=== PATIENT | female | born 1945 | race Caucasian/White ===

== ENCOUNTER 2020-02-28 14:25 | Outpatient (CLI) | payer MEDICARE, MEDICAID, SELFPAY ==
--- NOTE | 2020-02-28 14:27 | CT_ITS ---
WS: [id number] LDCT LUNG CANCER SCREENING HISTORY: HX OF TOBACCO USE TECHNIQUE: Axial imaging performed from the apices to 1 cm below the costophrenic angles. Coronal and sagittal reformats are submitted with axial MIP series. All CT scans at [facility] use at least one of these dose optimization techniques: automated exposure control; mA and/or kV adjustment per patient size (includes targeted exams where dose is matched to clinical indication); or iterativ e reconstruction. DLP: 54.58 mGy.cm DIvol: 1.58 mGy COMPARISON: None available. Diagnostic quality: Satisfactory Lung Nodules: No pulmonary nodules or endobronchial lesions. Lungs: Mild hyperexpansion from emphysema. Bilateral areas of scarring or subsegmental atelectasis at the lung bases. Small hernias posteriorly at each lung base. Heart: Normal size heart. There is extensive calcification in the [place] coronary arteries. Other findings: Heavy calcification within the thoracic aorta. Calcification extends into the proxima l great vessels. Precarinal lymph node measures 10 mm. Small hiatal hernia. Mild anterior wedging of T11. Age indeterminate compression fracture. Diffuse osteopenia. CT/CT lung screening [id number] IMPRESSION: LUNG-RADS: 1S-Negative with Significant Findings FOLLOW UP: 12 Month: Continue annual screening with LDCT OTHER FINDINGS (S MODIFIER): Severe atherosclerotic disease within the [place] c oronary arteries and aorta.
== END 2020-02-28 14:26 | disposition home or self-care (01) ==
LOC: CT 14:27
PROVIDERS: PCP Family Medicine; Visit Provider Family Medicine
DX: Z12.2 Encounter for screening for malignant neoplasm of respiratory organs (principal); Z87.891 Personal history of nicotine dependence
CPT/HCPCS: 71271

== ENCOUNTER 2020-08-25 14:51 | Outpatient (CLI) | payer MEDICARE, MEDICAID, SELFPAY ==
--- NOTE | 2020-08-25 14:56 | MM_ITS ---
WS: [id number] BILATERAL SCREENING DIGITAL MAMMOGRAM WITH CAD HISTORY: SCREENING COMPARISON: None available. Bilateral CC and MLO views submitted. Computer aided detection analyzed. Breast composition: There are scattered areas of fibroglandular density. No suspicious masses, microc alcifications or architectural distortion. Benign vascular calcifications and round calcifications. MM/[place] [id number] IMPRESSION: BI-RADS: 2-Benign FOLLOW UP: 1 Year Follow-up
== END 2020-08-25 14:52 | disposition home or self-care (01) ==
LOC: RADSHAW 14:55
PROVIDERS: PCP Family Medicine; Visit Provider Family Medicine
DX: Z12.31 Encounter for screening mammogram for malignant neoplasm of breast (principal)
CPT/HCPCS: 77067

== ENCOUNTER → 2020-12-16 08:45 | Outpatient (BNVA) | payer MEDICARE, MEDICAID, SELFPAY | PROVIDERS: PCP Family Medicine; Visit Provider Internal Medicine Rheumatology | DX: M05.79 Rheumatoid arthritis with rheumatoid factor of multiple sites without organ or systems involvement (principal); Z79.899 Other long term (current) drug therapy; Z79.52 Long term (current) use of systemic steroids; Z89.612 Acquired absence of left leg above knee; Z71.85 Encounter for immunization safety counseling | CPT/HCPCS: 99204 ==

== ENCOUNTER 2021-01-28 14:55 | Outpatient (CLI) | payer MEDICARE, MEDICAID, SELFPAY ==
--- NOTE | 2021-01-28 15:07 | XR_ITS ---
WS: [id number] SCREENING DEXA SCAN [employer] CLINICAL INFORMATION: POST MENOPAUSAL COMPARISON: 2013 FINDINGS: Lumbar scoliosis. The L1-L4 bone mineral density measures 1.037 g/cm2. This corresponds to a T score score of -1.2 and Z score of 1.0. Left femoral neck bone mineral density measures 0.240 g/cm2. This corresponds to a T score of -6.1 an d Z score of -4.1. Right femoral neck bone mineral density measures 0.628 g/cm2. This corresponds to a T score -3.0of an d Z score of -1.1. Mean femoral neck bone mineral density measures 0.434 g/cm2. This corresponds to a T score of -4.6 an d Z score of -2.6. XR/XR DEXA axial skeleton* [id number] IMPRESSION: Osteoporosis. Bone mineral density spuriously elevated in the lumbar spine due to endplate sc lerosis. Patient's FRAX calculated 10 year probability for major osteoporotic fracture i s 84.2 % and osteoporotic hip fracture is 80.1%.
== END 2021-01-28 14:56 | disposition home or self-care (01) ==
PROVIDERS: PCP Family Medicine; Visit Provider Family Medicine
DX: Z78.0 Asymptomatic menopausal state (principal); M81.0 Age-related osteoporosis without current pathological fracture
CPT/HCPCS: 77080

== ENCOUNTER → 2021-04-08 10:27 | Outpatient (BNVA) | payer MEDICARE, MEDICAID, SELFPAY | PROVIDERS: PCP Family Medicine; Visit Provider Internal Medicine Rheumatology | DX: M05.79 Rheumatoid arthritis with rheumatoid factor of multiple sites without organ or systems involvement (principal); Z79.899 Other long term (current) drug therapy; Z79.52 Long term (current) use of systemic steroids; Z89.612 Acquired absence of left leg above knee; Z71.85 Encounter for immunization safety counseling | CPT/HCPCS: 99204; 99214 ==

== ENCOUNTER 2021-04-15 12:02 | Outpatient (CLI) | payer MEDICARE, MEDICAID, SELFPAY ==
--- NOTE | 2021-04-15 13:08 | CT_ITS ---
WS: [id number] LDCT LUNG CANCER SCREENING TECHNIQUE: Noncontrast CT of the chest with coronal and sagittal reformatted images. CLINICAL INFORMATION: HX OF TOBACCO USE COMPARISON: February 28, 2020 DLP: 84.37 mGy.cm DIvol: Mean CTDIvol: 1.60 (mGy) All CT scans at [facility] use at least one of these dose optimization techniques: automat ed exposure control; mA and/or kV adjustment per patient size (includes targeted exams where dose is matched to clinical indication); or iterative reconstruction. FINDINGS: Moderate to advanced chronic emphysematous changes. No acute pulmonary infiltrates. No focal pneumoni a or pleural fluid. Thoracic aortic calcification. Coronary calcification. Stable prominent anterior mediastinal lymph node measuring 10 mm. No suspicious pulmonary parenchymal abnormality. Noncontrast spleen is normal. Small esophageal hiatal hernia. Adrenal glands are normal. Thoracolumba r scoliosis. Thoracic kyphosis. Chronic compression of a lower thoracic vertebral body T11. Small margi aliyah fat-containing Bochdalek hernia posteriorly CT/CT lung screening [id number] IMPRESSION: LUNG-RADS: 1S-Negative with Significant Findings FOLLOW UP: 12 Month: Continue annual screening with LDCT OTHER FINDINGS (S MODIFIER): Advanced atherosclerotic disease within the thorac ic aorta and coronary arteries
== END 2021-04-15 12:03 | disposition home or self-care (01) ==
LOC: RAD 12:04
PROVIDERS: PCP Family Medicine; Visit Provider Family Medicine
DX: Z12.2 Encounter for screening for malignant neoplasm of respiratory organs (principal); Z87.891 Personal history of nicotine dependence; K44.9 Diaphragmatic hernia without obstruction or gangrene
CPT/HCPCS: 71271

== ENCOUNTER 2021-09-14 10:57 | Outpatient (CLI) | payer MEDICARE, MEDICAID, SELFPAY ==
[2021-09-14 12:07] LABS: Albumin Level 3.9 g/dL (3.5-5.2); Calcium 9.6 mg/dL (8.5-10.5)
[2021-09-14 12:48] VITALS: BP 130/68; PULSE 79; RESP 18; TEMP 36.2; O2SAT 93
[2021-09-14] MEDS: denosumab 60 mg SDV SUBCUT (12:52)
[2021-09-14 13:04] VITALS: BP 122/65; PULSE 76; RESP 18; TEMP 36.2; O2SAT 95
== END 2021-09-14 10:58 | disposition home or self-care (01) ==
PROVIDERS: PCP Family Medicine; Referring Provider Family Medicine; Visit Provider Family Medicine
DX: M81.0 Age-related osteoporosis without current pathological fracture (principal)
CPT/HCPCS: 36415; 82040; 82310; 96372; J0897

== ENCOUNTER → 2021-10-06 10:49 | Outpatient (BNVA) | payer MEDICARE, MEDICAID, SELFPAY | PROVIDERS: PCP Family Medicine; Visit Provider Internal Medicine Rheumatology | DX: M05.79 Rheumatoid arthritis with rheumatoid factor of multiple sites without organ or systems involvement (principal); Z79.899 Other long term (current) drug therapy; Z71.85 Encounter for immunization safety counseling; Z89.612 Acquired absence of left leg above knee; Z79.52 Long term (current) use of systemic steroids | CPT/HCPCS: 36415; 80076; 82565; 85025; 86140; 99214 ==

== ENCOUNTER → 2022-01-04 10:23 | Outpatient (BNVA) | payer MEDICARE, MEDICAID, SELFPAY | PROVIDERS: PCP Family Medicine; Visit Provider Internal Medicine Rheumatology | DX: M05.79 Rheumatoid arthritis with rheumatoid factor of multiple sites without organ or systems involvement (principal); Z79.899 Other long term (current) drug therapy; Z71.85 Encounter for immunization safety counseling; Z89.612 Acquired absence of left leg above knee; Z79.52 Long term (current) use of systemic steroids | CPT/HCPCS: 36415; 80076; 82565; 85025; 86140; 99214 ==

== ENCOUNTER 2022-08-11 11:17 | Outpatient (CLI) | payer MEDICARE, MEDICAID, SELFPAY ==
[2022-08-11 11:55] LABS: Basophils % 0.3 %; Eosinophils # 0.2 10^3/uL (0.0-0.8); Eosinophils % 3.4 %; Hematocrit 34.2 % (37.0-47.0); Hemoglobin 11.4 g/dL (11.5-15.3); Lymphocytes # 1.1 10^3/uL (0.8-4.8); Lymphocytes % 15.5 %; Mean Corpuscular HGB Conc 33.3 g/dL (30.0-36.0); Mean Corpuscular Hemoglobin 28.7 pg (28.0-34.0); Mean Corpuscular Volume 86.1 fl (81-99); Mean Platelet Volume 9.7 fL (7.4-10.4); Monocytes # 0.7 10^3/uL (0.2-0.9); Monocytes % 10.3 %; Neutrophils # 4.97 10^3/uL (1.8-7.7); Neutrophils % 70.2 %; Nucleated Red Blood Cells % 0 %; Platelet Count 297 10^3/cmm (130-400); Red Blood Count 3.97 10^6/uL (4.1-5.3); Red Cell Distribution Width 14.7 % (12.1-15.1); White Blood Count 7.1 10^3/uL (4.0-10.0)
[2022-08-11 12:19] LABS: Alanine Aminotransferase 13 U/L (0-33); Albumin Level 3.9 g/dL (3.5-5.2); Alkaline Phosphatase 62 U/L (35-105); Aspartate Amino Transferase 19 U/L (0-32); Globulin 2.8 g/dL (1.3-4.6); Total Bilirubin 0.2 mg/dL (0.15-1.2); Total Protein 6.7 g/dL (6.6-8.7)
== END 2022-08-11 11:18 | disposition home or self-care (01) ==
PROVIDERS: Internal Medicine Rheumatology; PCP Family Medicine; Visit Provider Internal Medicine
DX: M05.79 Rheumatoid arthritis with rheumatoid factor of multiple sites without organ or systems involvement (principal); Z79.899 Other long term (current) drug therapy
CPT/HCPCS: 36415; 80076; 82565; 85025

== ENCOUNTER → 2022-09-20 14:08 | Outpatient (BNVA) | payer MEDICARE, MEDICAID, SELFPAY | PROVIDERS: PCP Family Medicine; Visit Provider Internal Medicine Rheumatology | DX: M05.79 Rheumatoid arthritis with rheumatoid factor of multiple sites without organ or systems involvement (principal); Z79.899 Other long term (current) drug therapy; Z71.85 Encounter for immunization safety counseling; Z89.612 Acquired absence of left leg above knee; Z79.52 Long term (current) use of systemic steroids | CPT/HCPCS: 99214 ==

== ENCOUNTER 2022-11-12 09:43 | Oncology outpatient (recurring) (ONCR) | payer MEDICARE, MEDICAID, SELFPAY ==
[2022-11-12] MEDS: denosumab 60 mg SDV SUBCUT (09:56)
[2022-11-12 09:59] VITALS: BP 146/69; PULSE 77; RESP 17; TEMP 36.3; O2SAT 93
== END 2022-12-07 23:59 | disposition home or self-care (01) ==
LOC: ONCMED 09:43
PROVIDERS: PCP Family Medicine; Visit Provider Family Medicine
DX: M81.0 Age-related osteoporosis without current pathological fracture (principal)
CPT/HCPCS: 96372; J0897

== ENCOUNTER 2022-12-29 12:20 | Emergency (ER) | payer MEDICARE, MEDICAID, SELFPAY ==
[2022-12-29 12:38] VITALS: BP 157/65; PULSE 103; RESP 18; TEMP 36.8; O2SAT 94
[2022-12-29 12:43] VITALS: RESP 18; O2SAT 94
--- NOTE | 2022-12-29 12:45 | XRR_ITS ---
PROCEDURE INFORMATION: Exam: XR Chest Exam date and time: 12/29/2022 12:48 PM Age: 77 years old Clinical indication: Shortness of breath; Additional info: SOB TECHNIQUE: Imaging protocol: Radiologic exam of the chest. Views: 1 view. COMPARISON: CT lung screening [id number] 04/15/2021 1:10 PM FINDINGS: Lungs: Mild and diffuse chronic interstitial prominence. Hypoventilatory changes in each lower lobe, left greater than right. No infiltrate or effusion. Pleural spaces: Unremarkable. No pleural effusion. No pneumothorax. Heart/Mediastinum: Unremarkable. No cardiomegaly. Bones/joints: Mild right thoracic curvature. XR/XR chest 1V portable [id number] IMPRESSION: 1. No acute findings. 2. Mild hypoventilatory changes at each lung base.
--- NOTE | 2022-12-29 12:45 | ECG_ITS ---
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 Measurements Intervals [place] Rate: 99 P: 60 CO: 111 QRS: 58 QRSD: 81 T: 65 QT: 354 QTc: 454 Interpretive Statements SINUS RHYTHM WITH SHORT CO INTERVAL WITH INTERMITTENT SUPRAVENTRICULAR PREMATURE COMPLEXES NONSPECIFIC ST & T-WAVE ABNORMALITY ABNORMAL RHYTHM ECG No previous ECG available for comparison Electronically Signed On 12-30-2022 13:18:14 [employer]INO CAGE MANAGER by Dudley Marcial M.D. [id number]
[2022-12-29 13:02] LABS: Basophils % 0.3 %; Eosinophils # 0.2 10^3/uL (0.0-0.8); Eosinophils % 2.6 %; Hematocrit 29.3 % (36-47); Lymphocytes # 0.4 10^3/uL (0.8-4.8); Lymphocytes % 5.7 %; Mean Corpuscular HGB Conc 32.8 g/dL (30-55); Mean Corpuscular Hemoglobin 27.3 pg (27-33); Mean Corpuscular Volume 83.2 fl (85-98); Mean Platelet Volume 8.9 fL (7.4-10.4); Monocytes # 0.8 10^3/uL (0.2-0.9); Monocytes % 10.6 %; Neutrophils # 6.07 10^3/uL (1.8-7.7); Neutrophils % 80.4 %; Nucleated Red Blood Cells % 0 %; Platelet Count 355 10^3/cmm (157-399); Red Blood Count 3.52 10^6/uL (3.85-5.65); Red Cell Distribution Width 15.4 % (12.1-15.1); White Blood Count 7.55 10^3/uL (3.29-11.43)
--- NOTE | 2022-12-29 13:10 | ED_ITS ---
HPI - SOB/Dyspnea General: Chief Complaint: Shortness of Breath/Dyspnea Stated Complaint: low O2 Time Seen by Provider: 12/29/22 12:25 Source: patient Mode of arrival: ambulatory Limitations: no limitations History of Present Illness: HPI Narrative: 77-year-old female with a history of COPD states she has been having some increased shortness of breath over the last 3 days. She has been using her inhaler she has had a slight cough she denies any fever denies any pain she de nies any worsening improving factors. Associated symptoms: Deny abdominal pain, chest pain, fever(s), nausea or vomiting Review of Systems Const: Denies: fever(s), chills, body aches or change in appetite Eyes: Denies: blurry vision or eye discomfort ENMT: Denies: throat pain or dental pain Card: Denies: chest pain Resp: Reports: dyspnea GI: Denies: abdominal pain, nausea, vomiting or diarrhea : Denies: dysuria Musc: Denies: neck pain or back pain Skin/Breast: Denies: rash Neuro: Denies: headache(s) PFSH ED PFSH: Medical History Anxiety COPD (chronic obstructive pulmonary disease) GERD (gastroesophageal reflux disease) High risk medication use History of hypercholesterolemia Hypertension Immunization counseling Joint pain 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 Surgical History History of total knee arthroplasty left Family History Other CAD (coronary artery disease) Diabetes Hyperlipidemia Hypertension Lung disease Stroke Social History Smoking and tobacco/nicotine status: former use of tobacco/nicotine Alcohol intake: never Physical Exam Const: COMMON NORMALS: no acute distress, patient oriented x3 and healthy appearing HENMT: COMMON NORMALS: normocephalic and atraumatic HEAD & SCALP: normocephalic and atraumatic Eye: COMMON NORMALS: Equal, round and reactive pupils present and EOMs intact bilaterally PUPIL: Yes Equal, round and reactive pupils present Neck/C-Spine: COMMON NORMALS: full ROM and supple Chest: COMMONS NORMALS: normal inspection of the chest and normal palpation of entire chest wall Resp: COMMON NORMALS: normal respiratory effort, No retractions, No use of accessory muscles and clear to auscultation bilaterally AUSCULTATION: clear to auscultation bilaterally Cardio: COMMON NORMALS: regular rate, regular rhythm and No murmurs present (Cardio) RATE: regular rate RHYTHM: regular rhythm GI: COMMON NORMALS: Normal to inspection, nondistended, normoactive bowel sounds present, Soft to palpation, non-tender and no masses PALPATION: Yes Soft to palpation Extremity: COMMON NORMALS: normal to inspection and full ROM Neuro: COMMON NORMALS: patient oriented x3, moves all extremities and no focal motor deficits Psych: COMMON NORMALS: mental status grossly normal, Normal thought process present and cooperative THOUGHT PROCESS: Normal thought process present Skin: COMMON NORMALS: no rashes or lesions noted and no wounds GENERAL SKIN EXAM: no rashes or lesions noted Course Vital Signs: Vital signs: Vital Signs Temperature 98.2 F 12/29/22 12:38 Pulse Rate 103 H 12/29/22 12:38 Respiratory Rate 18 12/29/22 12:43 Blood Pressure 157/65 12/29/22 12:38 Pulse Oximetry 94 12/29/22 12:43 Oxygen Delivery Me thod Room Air 12/29/22 12:43 MDM - SOB/Dyspnea Medical Decision Making Patient presents here with shortness of breath likely COPD exacerbation she has been well-appearing here in no distress x-ray shows no pneumonia she has no si gns of pulmonary embolism we will start her on a 5-day course of steroids she is to follow-up with her PCP and return if worsening she understands agrees to plan. Medical Records I reviewed the patient's medical records. Lab Data I reviewed the patient's lab results. 12/29/22 12:58 12/29/22 12:58 Labs/Radiology: Radiology Impressions Chest X-Ray 12/29/22 12:45 IMPRESSION: 1. No acute findings. 2. Mild hypoventilatory changes at each lung base. Laboratory Results WBC 7.55 10^3/uL (3.29-11.43) 12/29/22 12:58 RBC 3.52 10^6/uL (3.85-5.65) L 12/29/22 12:58 Hgb 9.60 g/dL (11.27-16.99) L 12/29/22 12:58 Hct 29.3 % (36-47) L 12/29/22 12:58 MCV 83.2 fl (85-98) L 12/29/22 12:58 MCH 27.3 pg (27-33) 12/29/22 12:58 MCHC 32.8 g/dL (30-55) 12/29/22 12:58 RDW 15.4 % (12.1-15.1) H 12/29/22 12:58 Plt Count 355 10^3/cmm (157-399) 12/29/22 12:58 MPV 8.9 fL (7.4-10.4) 12/29/22 12:58 Neut % (Auto) 80.4 % 12/29/22 12:58 Lymph % (Auto) 5.7 % 12/29/22 12:58 [place] % (Auto) 10.6 % 12/29/22 12:58 Eos % (Auto) 2.6 % 12/29/22 12:58 Baso % (Auto) 0.3 % 12/29/22 12:58 Neut # (Auto) 6.07 10^3/uL (1.8-7.7) 12/29/22 12:58 Lymph # (Auto) 0.4 10^3/uL (0.8-4.8) L 12/29/22 12:58 [place] # (Auto) 0.8 10^3/uL (0.2-0.9) 12/29/22 12:58 Eos # (Auto) 0.2 10^3/uL (0.0-0.8) 12/29/22 12:58 Baso # (Auto) 0.0 10^3/uL (0.0-0.1) 12/29/22 12:58 Nucleated RBC % (auto) 0 % 12/29/22 12:58 Nucleated RBCs # 0.0 /100WBC 12/29/22 12:58 Sodium 128 mmol/L (136-145) L 12/29/22 12:58 Potassium 4.2 mmol/L (3.5-5.1) 12/29/22 12:58 Chloride 95 mmol/L (98-107) L 12/29/22 12:58 Carbon Dioxide 20 mmol/L (22-29) L 12/29/22 12:58 Anion Gap 17.2 (5-19) 12/29/22 12:58 BUN 7 mg/dL (8-23) L 12/29/22 12:58 Creatinine 0.6 mg/dL (0.5-0.9) 12/29/22 12:58 GFR Calculation Not Reportable 12/29/22 12:58 Glucose 107 mg/dL (65-115) 12/29/22 12:58 Calculated Osmolality 264 mOsm/kg (285-295) L 12/29/22 12:58 Calcium 8.5 mg/dL (8.5-10.5) 12/29/22 12:58 Total Bilirubin 0.2 mg/dL (0.15-1.2) 12/29/22 12:58 AST 19 U/L (0-32) 12/29/22 12:58 ALT 17 U/L (0-33) 12/29/22 12:58 Alkaline Phosphatase 83 U/L (35-105) 12/29/22 12:58 NT-Pro-B Natriuret Pep 3073 pg/mL (0-450) H 12/29/22 12:58 Total Protein 7.0 g/dL (6.6-8.7) 12/29/22 12:58 Albumin 3.3 g/dL (3.5-5.2) L 12/29/22 12:58 Globulin 3.7 g/dL (1.3-4.6) 12/29/22 12:58 No radiology studies performed this visit EKG Data EKG 1: I personally reviewed and interpreted this EKG as follows: EKG Interpretation Date: 12/29/22 EKG interpretation time: 13:03 Interpretation: nsr hr [address] or t wave abnormalities qrs 81 qtc 410 Discharge Plan Discharge Patient Disposition: Home Clinical Impression: Acute exacerbation of chronic obstructive airways disease Condition: Stable Prescriptions: New prednisone 50 mg tablet 50 mg PO DAILY Qty: 5 0RF No Action tramadol 50 mg tablet 50 mg PO DAILY isosorbide mononitrate 30 mg tablet extended release 24 hr 30 mg PO DAILY pramipexole 0.125 mg tablet 0.125 mg PO DAILY lorazepam 0.5 mg tablet 0.5 mg PO BID PRN albuterol sulfate [Ventolin HFA] 90 mcg/actuation HFA aerosol inhaler 2 puff inhalation Q6H PRN cholecalciferol (vitamin D3) PO acetaminophen [Tylenol Extra Strength] 500 mg tablet 500 mg PO Q6H PRN naloxone 0.4 mg/mL solution 0.4 mg IM Q2M PRN Rx Instructions: NTExceed 10 mg total dose/episode aspirin 81 mg tablet,delayed release (DR/EC) 81 mg PO DAILY montelukast 10 mg tablet 10 mg PO DAILY baclofen 10 mg tablet 10 mg PO DAILY amlodipine 10 mg tablet 10 mg PO DAILY lisinopril 40 mg tablet 40 mg PO DAILY Qty: 90 0RF rosuvastatin 20 mg tablet 20 mg PO DAILY Qty: 90 0RF albuterol sulfate 2.5 mg/0.5 mL solution for nebulization 2.5 mg inhalation ONCE Qty: 1 0RF esomeprazole magnesium 20 mg capsule,delayed release(DR/EC) See Rx Instructions .ROUTE .COMPLEX Qty: 90 3RF Dose Instruction: TAKE 1 CAPSULE BY MOUTH EVERY DAY Rx Instructions: TAKE 1 CAPSULE BY MOUTH EVERY DAY duloxetine 60 mg capsule,delayed release(DR/EC) See Rx Instructions .ROUTE .COMPLEX Qty: 30 0RF Dose Instruction: TAKE 1 CAPSULE BY MOUTH DAILY Rx Instructions: TAKE 1 CAPSULE BY MOUTH DAILY, must have appt for further refills Trelegy Ellipta 100-62.5-25 mcg blister with device See Rx Instructions .ROUTE .COMPLEX Qty: 180 0RF Dose Instruction: TAKE 1 PUFF BY MOUTH FOR 90 DAYS Rx Instructions: TAKE 1 PUFF BY MOUTH FOR 90 DAYS leflunomide 20 mg tablet 20 mg PO DAILY Qty: 90 0RF prednisone 10 mg tablet See Rx Instructions .ROUTE .COMPLEX Qty: 30 0RF Dose Instruction: TAKE 1 TABLET BY MOUTH ONCE DAILY FOR 3-7 DAYS NEEDED FOR JOINT PAIN FLARE Rx Instructions: TAKE 1 TABLET BY MOUTH ONCE DAILY FOR 3-7 DAYS NEEDED FOR JOINT PAIN FLARE Discharge Orders: Discharge ED (Routine); Ordered 12/29/22 Ordered By: Jolene Poole Referrals: Matt Elias MD [Primary Care Provider] - 1-3 days Discharge Diet: Advance as tolerated Discharge Activity: Resume usual activity Patient Instructions: COPD (Chronic Obstructive Pulmonary Disease) (ED) Coding Level of Care Code 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
[2022-12-29] MEDS: methylPREDNISolone sod succ 125 mg/2 mL INJ IV (13:13)
[2022-12-29 13:34] LABS: Alanine Aminotransferase 17 U/L (0-33); Albumin Level 3.3 g/dL (3.5-5.2); Alkaline Phosphatase 83 U/L (35-105); Anion Gap 17.2 (5-19); Aspartate Amino Transferase 19 U/L (0-32); Blood Urea Nitrogen 7 mg/dL (8-23); Calcium 8.5 mg/dL (8.5-10.5); Carbon Dioxide 20 mmol/L (22-29); Chloride 95 mmol/L (98-107); Globulin 3.7 g/dL (1.3-4.6); Glucose 107 mg/dL (65-115); NT Pro B Type Natriuretic Pept 3073 pg/mL (0-450); Osmolality Calculated 264 mOsm/kg (285-295); Potassium 4.2 mmol/L (3.5-5.1); Sodium 128 mmol/L (136-145); Total Bilirubin 0.2 mg/dL (0.15-1.2)
== END 2022-12-29 13:49 | disposition home or self-care (01) ==
PROVIDERS: Emergency Provider Emergency Medicine; PCP Family Medicine
DX: J44.1 Chronic obstructive pulmonary disease with (acute) exacerbation (principal); Z79.82 Long term (current) use of aspirin; Z87.891 Personal history of nicotine dependence; I10 Essential (primary) hypertension; Z89.612 Acquired absence of left leg above knee
CPT/HCPCS: 36415; 71045; 80053; 83880; 85025; 93005; 93010; 96374; 99285; J2930

== ENCOUNTER → 2023-02-09 10:14 | Outpatient (BNVA) | payer OTHER, MEDICAID, SELFPAY | PROVIDERS: PCP Family Medicine; Visit Provider Internal Medicine Rheumatology | DX: Z79.899 Other long term (current) drug therapy (principal); M05.79 Rheumatoid arthritis with rheumatoid factor of multiple sites without organ or systems involvement; M71.331 Other bursal cyst, right wrist; Z71.85 Encounter for immunization safety counseling; Z89.612 Acquired absence of left leg above knee | CPT/HCPCS: 36415; 80076; 82565; 85025; 86140; 99214 ==

== ENCOUNTER 2023-06-24 13:07 | Outpatient (CLI) | payer OTHER, MEDICAID, SELFPAY ==
--- NOTE | 2023-06-24 13:30 | US_ITS ---
WS: [id number] INDICATION: Bursal cyst. TECHNIQUE: Ultrasound soft tissue wrist. FINDINGS: Ultrasound soft tissue RIGHT wrist in the area of concern. Small lobulated cystic lesions w ith internal debris on the radial and ulnar side of the wrist most compatible with small ganglion cys t. Radial side cystic lesion measures 0.9 x 0.5 cm and ulna lesion measures 1.0 x 1.3 cm. Both cystic lesions demonstrate a small sinus tract extending to the underlying bony wrist or joint. US/US soft tissue/extremity [id number] IMPRESSION: Small lobulated cystic lesions with internal debris along the ulna and radial surfaces of the wrist most compatible with lobulated ganglion cysts described above.
== END 2023-06-24 13:08 | disposition home or self-care (01) ==
LOC: RAD 13:07
PROVIDERS: PCP Family Medicine; Visit Provider Internal Medicine Rheumatology
DX: M71.331 Other bursal cyst, right wrist (principal); M79.89 Other specified soft tissue disorders
CPT/HCPCS: 76882

== ENCOUNTER → 2023-08-09 13:18 | Outpatient (BNVA) | payer OTHER, MEDICAID, SELFPAY | PROVIDERS: PCP Family Medicine; Visit Provider Internal Medicine Rheumatology | DX: M05.79 Rheumatoid arthritis with rheumatoid factor of multiple sites without organ or systems involvement (principal); Z79.899 Other long term (current) drug therapy; Z71.85 Encounter for immunization safety counseling; Z89.612 Acquired absence of left leg above knee; Z87.891 Personal history of nicotine dependence | CPT/HCPCS: 36415; 80076; 82565; 85025; 85651; 86140; 99214 ==

== ENCOUNTER 2023-11-02 14:46 | Oncology outpatient (recurring) (ONCR) | payer OTHER, MEDICAID, SELFPAY ==
[2023-11-02] MEDS: sodium chloride 0.9% 250 ML 25 ML IV (15:38)
[2023-11-02] MEDS: ferric carboxy (PYXIS) 750 MG in sodium chloride 0.9% (100 ml) 100 ML 345 MG IV (15:39)
[2023-11-02 15:40] VITALS: BP 150/70; PULSE 69; RESP 18; TEMP 36.1
[2023-11-02 16:04] VITALS: BP 128/74; PULSE 74; RESP 18; TEMP 36.1; O2SAT 98
== END 2023-11-07 23:59 | disposition home or self-care (01) ==
LOC: ONCMED 14:46
PROVIDERS: PCP Family Medicine; Visit Provider Family Medicine
DX: Z79.899 Other long term (current) drug therapy (principal); D50.9 Iron deficiency anemia, unspecified
CPT/HCPCS: 96365; J1439; J7050

== ENCOUNTER 2023-11-09 14:44 | Oncology outpatient (recurring) (ONCR) | payer OTHER, MEDICAID, SELFPAY ==
[2023-11-09 15:19] VITALS: BP 168/85; PULSE 67; RESP 16; TEMP 37.1; O2SAT 96
[2023-11-09] MEDS: ferric carboxy (PYXIS) 750 MG in sodium chloride 0.9% (100 ml) 100 ML 345 MG IV (15:30)
[2023-11-09] MEDS: sodium chloride 0.9% 250 ML 325 ML IV (15:30)
[2023-11-09 16:02] VITALS: BP 172/70; PULSE 63; TEMP 36.1; O2SAT 95
== END 2023-12-08 23:59 | disposition home or self-care (01) ==
PROVIDERS: PCP Family Medicine; Visit Provider Family Medicine
DX: Z79.899 Other long term (current) drug therapy (principal); D50.9 Iron deficiency anemia, unspecified
CPT/HCPCS: 96365; J1439; J7050

== ENCOUNTER 2024-12-09 14:05 | Inpatient (IN) | payer MEDICARE, MEDICAID, SELFPAY ==
[2024-12-09] VITALS (25 sets, daily range): BP systolic 111–137; BP diastolic 52–81; PULSE 77–101; RESP 17–91; TEMP 36.7–36.8; O2SAT 86–95; BMI 19.3
--- NOTE | 2024-12-09 14:07 | XRR_ITS ---
PROCEDURE INFORMATION: Exam: XR Chest Exam date and time: 12/09/2024 2:37 PM Age: 78 years old Clinical indication: Shortness of breath; Additional info: SOB TECHNIQUE: Imaging protocol: Radiologic exam of the chest. Views: 1 view. COMPARISON: CR XR chest 1V portable [id number] 12/29/2022 12:48 PM FINDINGS: Lungs: Lungs are hyperexpanded. Radiolucency in the upper lung zones suggests bullous disease. Mild increased density is present in the left retrocardiac region and lateral right lung base. Mid and upper lungs are clear. Pleural spaces: Very small amount of pleural fluid may be present bilaterally. No pneumothorax. Heart/Mediastinum: Unremarkable. No cardiomegaly. Bones/joints: Unremarkable. XR/XR chest 1V portable [id number] IMPRESSION: 1. Mild increased density is present in the left retrocardiac region and lateral right lung base. Appearance is concerning for mild bibasilar pneumonia. 2. Radiographic findings suggesting COPD.
--- OUTSIDE RECORDS SUMMARY | 2024-12-09 14:09 | XMS_ITS | Encounter Summary ---
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 Gender Identity Not on file Sexual Orientation Not on file documented as of this encounter Plan of Treatment Not on file documented as of this encounter Procedures Procedure Name Priority Date/Time Associated Diagnosis Comments LIPID PANEL Routine 08/22/2006 8:44 AM CDT documented in this encounter Results * (ABNORMAL) LIPID PANEL (08/22/2006 8:44 AM CDT) CHOLESTEROL 256(H) 75 - 200 mg/dL INTERFACE SYSTEM HDL 45 40 - 60 mg/dL INTERFACE SYSTEM TRIGLYCERIDE 165 0 - 200 mg/dL INTERFACE SYSTEM GLUCOSE 93 70 - 110 mg/dL INTERFACE SYSTEM CALCULATED LDL CHOLESTEROL 178(H) 0 - 130 mg/dL INTERFACE SYSTEM CALCULATED TOTAL CHOLESTEROL TO HDL RATIO 5.69(H) 3.27 - 4.44 INTERFACE SYSTEM 08/22/2006 8:44 AM CDT us Ramírez Tsai MD CHEMISTRY ORDERABLES Edited INTERFACE SYSTEM Refer to clinic/hospital department documented in this encounter Visit Diagnoses Not on filedocumented in this encounter
--- OUTSIDE RECORDS SUMMARY | 2024-12-09 14:09 | XMS_ITS | Data Portability ---
Author Organization NEERAJ Jose G Llanes [facility], [facility], [facility] Address [address] [address] Care Team Providers Care Smutter Name Role Phone KEISHA VALENTINE Primary Care Provider [phone] Assessment Encounter Date Assessment Date Assessment LastModified by Organization Details LastModified Time 10/18/2023 10/18/2023 Document scribed by Manny García Implementation Consultant. I was present during interview and exam. I have reviewed and agree with above documentation . Dr. Med Barnhart. [email or web address] Not available 10/18/2023 13:22:25 Plan of Treatment Reminders Order Date Submit Date Provider Last Modified By Organization Details Last Modified Time Details Appointments OFFICE VISIT 15 2025 10:30A M Keisha Valentine MD Not available Not available Not available Lab CMP, serum or plasma 2024 025 [facility], [address], [place], [address], 10/26/2024 12:27:25 CBC 2024 025 [facility], [address], [place], [address], 10/26/2024 12:11:44 lipid panel, blood 2024 025 [facility], [address], [place], [address], 10/26/2024 12:27:27 ferritin, serum or plasma 2024 025 [facility], [address] [place], [address], 10/27/2024 06:18:41 Referral None recorded. Procedures upper endoscopy (EGD) with colonosco py (PROC) 2023 024 asurface Not available 11/02/2023 09:17:45 Surgeries None recorded. Imaging None recorded. Medication Orders diclofena c 1 % topical gel 2024 025 RALF [id number], [address], [facility], [place], [address], 11/01/2024 12:19:54 Patient TargetsNo targets recorded. Patient InstructionsNo instructions recorded. Reason for Referral None Reported. Results Created Date Observation Date Name Description Value Unit Range Abnormal Flag Note LastModifiedBy Organization Detail LastModifiedTime 10/05/19 24 10/05/2023 CBC WBC 5.6 x10 4.0-10 .5 Not Available [facility] [address] [facility] [address] [facility], [place], [address], 10/05/2023 12:38:34 10/05/19 24 10/05/2023 CBC RBC 3.87 x10 3.50-5 .50 Not Available [facility] [address] [facility], [place], [address], 10/05/2023 12:38:34 10/05/19 24 10/05/2023 CBC HGB 10.0 g/dL 12.0-1 6.0 low Not Available [facility] [address] [facility], [place], [address], 10/05/2023 12:38:34 10/05/19 24 10/05/2023 CBC HCT 30.0 % 37.0-4 7.0 low Not Available [facility] [address] [facility] 1, [place], [address], 10/05/2023 12:38:34 10/05/19 24 10/05/2023 CBC MCV 77.6 fL 80.0-9 9.9 low Not Available [facility] [address] [facility], [place], [address], 10/05/2023 12:38:34 10/05/19 24 10/05/2023 CBC MCH 25.9 pg 27.0-3 2.0 low Not Available [facility] [address] [facility], [place], [address], 10/05/2023 12:38:34 10/05/19 24 10/05/2023 CBC MCHC 33.4 g/dL 32.0-3 6.0 Not Available [facility] [address] [facility], [place], [address], 10/05/2023 12:38:34 10/05/19 24 10/05/2023 CBC RDW 19.6 % 11.5-1 4.5 high Not Available [facility] [address] [facility] [facility], [place], [address], 10/05/2023 12:38:34 10/05/19 24 10/05/2023 CBC plt 383.6 x10 140.0- 451.0 Not Available [facility] [address] [facility], [place], [address], 10/05/2023 12:38:34 10/05/19 24 10/05/2023 CBC lymphocytes % 16.7 % 20.0-5 0.0 low Not Available [facility] [address] [facility], [place], [address], 10/05/2023 12:38:34 10/05/19 24 10/05/2023 CBC granulcytes % 71.0 % 30.0-7 0.0 high Not Available [facility] [address] [address], [place], [address], 10/05/2023 12:38:34 10/05/19 24 10/05/2023 CBC monocytes % 8.7 % 2.0-16 .0 Not Available [facility] [address] [address], [place], [address], 10/05/2023 12:38:34 10/05/19 24 10/05/2023 CBC granulcytes# 4.0 x10 Not [place] ilable [facility] [address] [address], [place], [address], 10/05/2023 12:38:34 10/05/19 24 10/05/2023 CBC lymphocytes # 0.9 x10 Not Available [facility] [address] [address], [place], [address], 10/05/2023 12:38:34 10/05/19 24 10/05/2023 CBC monocytes # 0.5 x10 Not Avai lable [facility] [address] [address], [place], [address], 10/05/2023 12:38:34 10/05/19 24 10/06/2023 IRON, TIBC AND CANDE TIN PANEL iron, total 27 mcg/d L 45-160 low Not Available [facility] [address] [place], [address], 10/06/2023 07:37:47 10/05/19 24 10/06/2023 IRON, TIBC AND CANDE TIN PANEL iron binding capacity 419 mcg/d L_(ca lc) 250-45 0 normal Not Available [facility] [address] [place], [address], 10/06/2023 07:37:47 10/05/19 24 10/06/2023 IRON, TIBC AND CANDE TIN PANEL % saturation 6 %_(ca lc) 16-45 low Not Available [facility] [address] [place], [address], 10/06/2023 07:37:47 10/05/19 24 10/06/2023 IRON, TIBC AND CANDE TIN PANEL ferritin 6 NG/mL 16-288 low Not Available [facility] [address] [place], [address], 10/06/2023 07:37:47 10/05/19 24 10/05/2023 ESR (eryt hrocy te sedim entat ion rate) , blood SedRate 20 Not Available [facility] [address] [place], [address], 10/05/2023 11:49:09 12/21/19 24 12/21/2023 CBC WBC 5.1 x10 4.0-10 .5 Not Available [facility] [address], [address], 12/21/2023 13:05:14 12/21/19 24 12/21/2023 CBC RBC 4.38 x10 3.50-5 .50 Not Available [facility] [address], [address], 12/21/2023 13:05:14 12/21/19 24 12/21/2023 CBC HGB 13.0 g/dL 12.0-1 6.0 Not Available [facility] [address]05 [facility] 1, [place], [address], 12/21/2023 13:05:14 12/21/19 24 12/21/2023 CBC HCT 37.4 % 37.0-4 7.0 Not Available [facility] [address]05 [facility] [address], [address], 12/21/2023 13:05:14 12/21/19 24 12/21/2023 CBC MCV 85.5 fL 80.0-9 9.9 Not Available [facility] [address] [facility] 1, [place], [address], 12/21/2023 13:05:14 12/21/1912/21/2023 CBC MCH 29.6 pg 27.0-3 2.0 Not Available [facility] [address] [facility] 1, [place], [address], 12/21/2023 13:05:14 12/21/1912/21/2023 CBC MCHC 34.7 g/dL 32.0-3 6.0 Not Available [facility] [address] [facility], [place], [address], 12/21/2023 13:05:14 12/21/1912/21/2023 CBC RDW 25.1 % 11.5-1 4.5 high Not Available [facility] [address] [facility] 1, [place], [address], 12/21/2023 13:05:14 12/21/19 24 12/21/2023 CBC plt 293.9 x10 140.0- 451.0 Not Available [facility] [address] [facility] [address] 1, [place], [address], 12/21/2023 13:05:14 12/21/1912/21/2023 CBC lymphocytes % 26.0 % 20.0-5 0.0 Not Available [facility] [address] [facility] 1, [place], [address], 12/21/2023 13:05:14 12/21/19 24 12/21/2023 CBC granulcytes % 59.4 % 30.0-7 0.0 Not Available [facility] [address] [facility] 1, [place], [address], 12/21/2023 13:05:14 12/21/1912/21/2023 CBC monocytes % 9.6 % 2.0-16 .0 Not Available [facility] [address] [facility] 1, [place], [address], 12/21/2023 13:05:14 12/21/19 24 12/21/2023 CBC granulcytes# 3.1 x10 Not [place] ilable [facility] [address] [facility] 1, [place], [address], 12/21/2023 13:05:14 12/21/19 24 12/21/2023 CBC lymphocytes # 1.3 x10 Not Available [facility] [address] [address], [place], [address], 12/21/2023 13:05:14 12/21/19 24 12/21/2023 CBC monocytes # 0.5 x10 Not Avai lable [facility] [address] [facility] 1, [place], [address], 12/21/2023 13:05:14 12/21/19 24 12/22/2023 IRON AND TOTAL IRON JESSICA NG CAPAC ITY iron, total 116 mcg/d L 45-160 normal Not Available [facility] [address] [place], [address], 12/22/2023 06:32:20 12/21/19 24 12/22/2023 IRON AND TOTAL IRON JESSICA NG CAPAC ITY iron binding capacity 286 mcg/d L_(ca lc) 250-45 0 normal Not Available [facility] [address] [place], [address], 12/22/2023 06:32:20 12/21/19 24 12/22/2023 IRON AND TOTAL IRON JESSICA NG CAPAC ITY % saturation 41 %_(ca lc) 16-45 normal Not Available [facility] [address] [place], [address], 12/22/2023 06:32:20 12/21/1912/22/2023 CANDE TIN ferritin 500 NG/mL 16-288 high Not Available [facility] [address] [address], [place], [address], 12/22/2023 06:32:22 01/27/20 24 01/27/2024 CBC WBC 4.2 x10 4.0-10 .5 Not Available [facility] [address] [facility], [place], [address], 01/27/2024 11:43:39 01/27/2001/27/2024 CBC RBC 4.25 x10 3.50-5 .50 Not Available [facility] [address] [facility] 1, [place], [address], 01/27/2024 11:43:39 01/27/2001/27/2024 CBC HGB 13.3 g/dL 12.0-1 6.0 Not Available [facility] [address], [place], [address], 01/27/2024 11:43:39 01/27/2001/27/2024 CBC HCT 38.0 % 37.0-4 7.0 Not Available [facility] [address] [facility] [facility] [address], [place], [address], 01/27/2024 11:43:39 01/27/2001/27/2024 CBC MCV 89.4 fL 80.0-9 9.9 Not Available [facility] [address] [facility] [address], [place], [address], 01/27/2024 11:43:39 01/27/2030 0101/27/2024 CBC MCH 31.3 pg 27.0-3 2.0 Not Available [facility] [address] [facility] [address] [facility] 1, [place], [address], 01/27/2024 11:43:39 01/27/20 24 01/27/2024 CBC MCHC 35.0 g/dL 32.0-3 6.0 Not Available [facility] [address] [facility] 1, [place], [address], 01/27/2024 11:43:39 01/27/20 24 01/27/2024 CBC RDW 21.1 % 11.5-1 4.5 high Not Available [facility] [address] [facility], [place], [address], 01/27/2024 11:43:39 01/27/20 24 01/27/2024 CBC plt 233.1 x10 140.0- 451.0 Not Available [facility] [address] [facility], [place], [address], 01/27/2024 11:43:39 01/27/20 24 01/27/2024 CBC lymphocytes % 21.8 % 20.0-5 0.0 Not Available [facility] [address] [facility] 1, [place], [address], 01/27/2024 11:43:39 01/27/20 24 01/27/2024 CBC granulcytes % 62.1 % 30.0-7 0.0 Not Available [facility] [address] [facility], [place], [address], 01/27/2024 11:43:39 01/27/20 24 01/27/2024 CBC monocytes % 10.3 % 2.0-16 .0 Not Available [facility] [address] [facility] 1, [place], [address], 01/27/2024 11:43:39 01/27/20 24 01/27/2024 CBC granulcytes# 2.6 x10 Not [place] ilable [facility] [address] [facility] 1, [place], [address], 01/27/2024 11:43:39 01/27/20 24 01/27/2024 CBC lymphocytes # 0.9 x10 Not Available [facility] [address] [facility] 1, [place], [address], 01/27/2024 11:43:39 01/27/20 24 01/27/2024 CBC monocytes # 0.4 x10 Not Avai lable [facility] [address] [facility] 1, [place], [address], 01/27/2024 11:43:39 01/27/20 24 01/28/2024 IRON AND TOTAL IRON JESSICA NG CAPAC ITY iron, total 92 mcg/d L 45-160 normal Not Available [address], [address], 01/28/2024 07:53:05 01/27/20 24 01/28/2024 IRON AND TOTAL IRON JESSICA NG CAPAC ITY iron binding capacity 270 mcg/d L_(ca lc) 250-45 0 normal Not Available [address], [address], 01/28/2024 07:53:05 01/27/20 24 01/28/2024 IRON AND TOTAL IRON JESSICA NG CAPAC ITY % saturation 34 %_(ca lc) 16-45 normal Not Available [address], [address], 01/28/2024 07:53:05 01/27/20 24 01/28/2024 CANDE TIN ferritin 330 NG/mL 16-288 high Not Available [address], [address], 01/28/2024 07:53:06 10/27/19 25 10/26/2024 CBC WBC 6.4 x10 4.0-10 .5 Not Available [facility] [address] [facility] 1, [place], [address], 10/26/2024 12:11:44 10/27/19 25 10/26/2024 CBC RBC 4.42 x10 3.50-5 .50 Not Available [facility] [address] [facility] 1, [place], [address], 10/26/2024 12:11:44 10/27/19 25 10/26/2024 CBC HGB 13.4 g/dL 12.0-1 6.0 Not Available [facility] [address] [facility] 1, [place], [address], 10/26/2024 12:11:44 10/27/19 25 10/26/2024 CBC HCT 41.5 % 37.0-4 7.0 Not Available [facility] [address] [facility] 1, [place], [address], 10/26/2024 12:11:44 10/27/19 25 10/26/2024 CBC MCV 93.8 fL 80.0-9 9.9 Not Available [facility] [address] [facility], [place], [address], 10/26/2024 12:11:44 10/27/19 25 10/26/2024 CBC MCH 30.2 pg 27.0-3 2.0 Not Available [facility] [address] [facility] 1, [place], [address], 10/26/2024 12:11:44 10/27/19 25 10/26/2024 CBC MCHC 32.2 g/dL 32.0-3 6.0 Not Available [facility] [address] [facility], [place], [address], 10/26/2024 12:11:44 10/27/1910/26/2024 CBC RDW 13.9 % 11.5-1 4.5 Not Available [place] [address] [facility] 1, [place], [address], 10/26/2024 12:11:44 10/27/19 25 10/26/2024 CBC plt 354.2 x10 140.0- 451.0 Not Available [place] [facility] [address] [facility], [place], [address], 10/26/2024 12:11:44 10/27/19 25 10/26/2024 CBC lymphocytes % 16.7 % 20.0-5 0.0 low Not Available [facility] [address] [facility], [place], [address], 10/26/2024 12:11:44 10/27/19 25 10/26/2024 CBC granulcytes % 70.9 % 30.0-7 0.0 high Not Available [place] [facility] [address] [facility], [place], [address], 10/26/2024 12:11:44 10/27/19 25 10/26/2024 CBC monocytes % 8.0 % 2.0-16 .0 Not Available [place] [facility] [address] [facility] 1, [place], [address], 10/26/2024 12:11:44 10/27/1910/26/2024 CBC granulcytes# 4.5 x10 Not [place] ilable [facility] [address] [facility] 1, [place], [address], 10/26/2024 12:11:44 10/27/19 25 10/26/2024 CBC lymphocytes # 1.1 x10 Not Available [facility] [address] [facility], [place], [address], 10/26/2024 12:11:44 10/27/1910/26/2024 CBC monocytes # 0.5 x10 Not [facility] [address] [facility], [place], [address], 10/26/2024 12:11:44 10/27/19 25 10/26/2024 CMP (FEMA LE) glucose 106.0 mg/dL 60.0-9 9.0 high Not Available [facility] [address] [facility], [place], [address], 10/26/2024 12:27:25 10/27/19 25 10/26/2024 CMP (FEMA LE) BUN (blood urea nitrogen) 10.0 mg/dL 10.0-2 6.0 Not Available [facility] [address] [facility], [place], [address], 10/26/2024 12:27:25 10/27/19 25 10/26/2024 CMP (FEMA LE) creatinine (serum) 0.7 mg/dL 0.4-1. 5 Not Available [facility] [address] [facility] [address] [address], [place], [address], 10/26/2024 12:27:25 10/27/19 25 10/26/2024 CMP (FEMA LE) BUN/creatini ne ratio 14.29 ratio Not Available [facility] [address] [facility], [place], [address], 10/26/2024 12:27:25 10/27/19 25 10/26/2024 CMP (FEMA LE) eGFR calculated 86.5 Not Available [facility] [address] [facility] [address] [address], [place], [address], 10/26/2024 12:27:25 10/27/1910/26/2024 CMP (FEMA LE) total protein 7.7 g/dL 6.0-8. 5 Not Available [facility] [address] [facility], [place], [address], 10/26/2024 12:27:25 10/27/1910/26/2024 CMP (FEMA LE) total bilirubin 0.6 mg/dL 0.2-1. 3 Not Available [facility] [address] [facility] 1, [place], [address], 10/26/2024 12:27:25 10/27/1910/26/2024 CMP (FEMA LE) albumin 4.2 g/dL 3.5-5. 5 Not Available [facility] 8[address] [facility] 1, [place], [address], 10/26/2024 12:27:25 10/27/1910/26/2024 CMP (FEMA LE) globulin 3.5 calc Not Available [facility] [address]05 [facility] 1, [place], [address], 10/26/2024 12:27:25 10/27/1910/26/2024 CMP (FEMA LE) AST (SGOT) 30.0 U/L 0.0-46 .0 Not Available [facility] [address] [facility] 1, [place], [address], 10/26/2024 12:27:25 10/27/1910/26/2024 CMP (FEMA LE) altv (SGPT) 18.0 U/L 13.0-6 9.0 normal Not Available [facility] [address] [facility] 1, [place], [address], 10/26/2024 12:27:25 10/27/1910/26/2024 CMP (FEMA LE) A/G ratio 1.2 ratio Not Available [facility] [address] [facility] 1, [place], [address], 10/26/2024 12:27:25 10/27/19 25 10/26/2024 CMP (FEMA LE) ALP phos 86.0 U/L 30.0-1 40.0 normal Not Available [facility] [address] [facility] 1, [place], [address], 10/26/2024 12:27:25 10/27/1910/26/2024 CMP (FEMA LE) calcium 9.6 mg/dL 8.4-10 .5 Not Available [facility] [address] [address], [place], [address], 10/26/2024 12:27:25 10/27/19 25 10/26/2024 CMP (FEMA LE) sodium 132.0 mmol/ L 136.0- 145.0 low Not Available [facility] [address] [address], [place], [address], 10/26/2024 12:27:25 10/27/19 25 10/26/2024 CMP (FEMA LE) potassium 4.5 mmol/ L 3.5-5. 1 Not Available [facility] [address] [address], [place], [address], 10/26/2024 12:27:25 10/27/1910/26/2024 CMP (FEMA LE) chloride 96.0 mmol/ L 98.0-1 10.0 abnormal Not Available [place] [facility] [address] [facility] 1, [place], [address], 10/26/2024 12:27:25 10/27/19 25 10/26/2024 CMP (FEMA LE) C02 27.0 mmol/ L 22.0-3 1.0 Not Available [facility] [address] [facility] 1, [place], [address], 10/26/2024 12:27:25 10/27/1910/26/2024 CMP (FEMA LE) anion gap 9.0 calc Not Available [facility] [address] [facility] 1, [place], [address], 10/26/2024 12:27:25 10/27/1910/26/2024 CMP (FEMA LE) osmolality 272.6 calc Not Available [facility] [address] [facility] 1, [place], [address], 10/26/2024 12:27:25 10/27/19 25 10/26/2024 LIPID PROFI LE (FEMA LE) cholesterol 140.0 mg/dL 0.0-20 0.0 Not Available [facility] [address] [facility] 1, [place], [address], 10/26/2024 12:27:27 10/27/19 25 10/26/2024 LIPID PROFI LE (FEMA LE) trig 93.0 mg/dL 0.0-15 0.0 Not Available [facility] [address] [facility] 1, [place], [address], 10/26/2024 12:27:27 10/27/1910/26/2024 LIPID PROFI LE (FEMA LE) HDL - direct 51.0 mg/dL >40.0 Not Available [facility] [address] [facility] 1, [place], [address], 10/26/2024 12:27:27 10/27/1910/26/2024 LIPID PROFI LE (FEMA LE) VLDL - direct 18.6 mg/dL Not Available [facility] [address] [facility] 1, [place], [address], 10/26/2024 12:27:27 10/27/19 25 10/26/2024 LIPID PROFI LE (FEMA LE) LDL - direct 70.4 mg/dL 0.0-13 0.0 Not Available [facility] [address], [place], [address], 10/26/2024 12:27:27 10/27/19 25 10/27/2024 CANDE TIN ferritin 298 NG/mL 16-288 high Not Available [facility] [address] [address], [place], [address], 10/27/2024 06:18:41 10/31/19 24 10/27/2023 colon oscop y proce dure (PROC ) No observ ation record ed. [address] [facility] [place] [address] , [place], [address], 11/01/2023 15:55:15 10/31/19 24 10/27/2023 upper endos copy proce dure (EGD) (PROC ) No observ ation record ed. [address] , [place], [address], 11/01/2023 15:55:16 Result Notes None recorded. Problems Name Problem SNOMED Code Status Onset Date Resolution Date Notes Provider Name and Address Organization Details Recorded Time Vitamin D deficienc y 87672959 Active 2021 Vitamin D deficienc y; 2 1:10PM by Mila Booker LPN, Office Visit; Promoted; acuity set as *; MILA welch [place] [facility]CB[facility] 5 11:49:32 Chronic pain 21281748 Active 2021 Chronic Pain; Recorded 2 1:10PM by Mila Booker LPN, Office Visit; Promoted; acuity set as *; MILA welch [facility] 5 11:49:32 Angina pectoris 279821720 Active 2022 MILA welch, [facility] 5 11:49:32 Periphera l vascular disease 537764250 Active 2022 MILA welch, [facility] 4 11:11:35 Chronic obstructi ve pulmonary disease 65024755 Active 2022 MILA welch, [facility] 3 13:45:16 Phantom limb syndrome with pain 228737051548 6 Active 2022 MILA welch, [facility] 4 11:08:27 Hyperlipi demia 55276972 Active 2022 MILA welch, [facility] 4 11:11:57 Essential hypertens ion 98092971 Active 2022 MILA welch, [facility] 4 11:11:51 Depressiv e disorder 63301777 [facility] 11:11:42 Osteoporo sis 35496047 Active 2022 MILA welch, [facility] 4 11:12:11 Rheumatoi d arthritis 17594129 Active 2023 MILA welch, [facility] 4 11:13:17 Iron deficienc y anemia 73367426 Active 2023 MILA welch [facility] 5 11:49:32 Problem Notes None recorded. Procedures Surgical History Date Name Laterality Status Provider Name and Address Organization Details Recorded Time 10/27/19 24 colonoscopy completed [facility], Connie 11/01/2023 15:54:32 10/27/19 24 endoscopy completed [facility], Connie 11/01/2023 15:54:59 total knee replacement completed [facility], Connie 02/15/2023 14:06:01 amputation above-knee completed [facility] [place], Connie 02/15/2023 14:06:19 arthroplasty of knee completed [facility] [place], Connie 02/15/2023 14:06:42 insertion of iliac artery stent completed [facility] [place], Connie 02/15/2023 14:06:56 Imaging Results None recorded. Procedure Notes None recorded. Medical Equipment None Reported. Allergies No known drug allergies Medications Name Sig Start Date Stop Date Status Note LastModified by Organization Details LastModified Time prednison e 10 mg tablet TAKE 1 TABLET BY MOUTH ONCE DAILY FOR 3-7 DAYS NEEDED FOR JOINT PAIN FLARE 08/21 completed Not Available Not Available Not Available ipratropi um 0.5 mg-albute rol 3 mg (2.5 mg base)/3 mL nebulizat ion soln inhale THE contents of one vial via nebulize r FOUR TIMES DAILY NEEDED active Not Available Not Available No t Available sulfasala zine 500 mg tablet TAKE 1 TAB BY MOUTH ONCE DAILY X 1 WEEK, THEN STAY ON 1 TABLET TWO TIMES DAILY, TAKE WITH MEAL/BILL D 02/15 completed Not Available Not Available Not Available isosorbid e mononitra te ER 30 mg tablet,ex tended release 24 hr TAKE 1 TABLET BY MOUTH EVERY DAY 08/11 completed Not Available Not Available Not Available aspirin 81 mg tablet,de layed release TAKE 1 TABLET BY MOUTH EVERY DAY FOR 100 DAYS 2024 active Not Available Not Available Not Avai lable leflunomi de 20 mg tablet TAKE 1 TABLET BY MOUTH EVERY DAY 08/21 completed Not Available Not Available Not Available tramadol 50 mg tablet TAKE 2 TABLETS BY MOUTH 3 TIMES DAILY NEEDED FOR PAIN FROM RHEUMATO ID ARTHRITI S active Not Available Not Available No t Available isosorbid e mononitra te ER 120 mg tablet,ex tended release 24 hr TAKE 1 TABLET BY MOUTH EVERY DAY active Not Available Not Available No t Available isosorbid e mononitra te ER 60 mg tablet,ex tended release 24 hr TAKE 1 TABLET BY MOUTH EVERY DAY 05/01 completed Not Available Not Available Not Available lorazepam 0.5 mg tablet TAKE 1 TABLET BY MOUTH TWICE A DAY NEEDED active Not Available Not Available No t Available methotrex ate sodium 2.5 mg tablet TAKE 6 TABLETS ONCE WEEKLY. TAKE EVERY . 11/01 completed Not Available Not Available Not Available baclofen 10 mg tablet TAKE 1 TO 2 TABLETS BY MOUTH AT BEDTIME 2024 active Not Available Not Available Not Avai lable amlodipin e 10 mg tablet TAKE 1 TABLET BY MOUTH EVERY DAY active Not Available Not Available No t Available pantopraz ole 40 mg tablet,de layed release TAKE 1 TABLET BY MOUTH EVERY DAY active Not Available Not Available No t Available esomepraz ole magnesium 40 mg capsule,d elayed release TAKE 1 CAPSULE BY MOUTH EVERY DAY 05/01 completed Not Available Not Available Not Available pramipexo le 0.125 mg tablet TAKE 1 TABLET BY MOUTH EVERYDAY AT BEDTIME active Not Available Not Available No t Available folic acid 1 mg tablet TAKE 1 TABLET BY MOUTH EVERY DAY 11/01 completed Not Available Not Available Not Available monteluka st 10 mg tablet TAKE 1 TABLET BY MOUTH EVERY DAY active Not Available Not Available No t Available albuterol sulfate HFA 90 mcg/actua tion aerosol inhaler TAKE 1-2 PUFFS EVERY 4 HOURS NEEDED FOR SHORTNES S OF BREATH AND WHEEZING active Not Available Not Available No t Available lisinopri l 40 mg tablet TAKE 1 TABLET BY MOUTH EVERY DAY active Not Available Not Available No t Available esomepraz ole magnesium 20 mg capsule,d elayed release TAKE 1 CAPSULE BY MOUTH EVERY DAY 08/11 completed Not Available Not Available Not Available Sumycin 500 500 mg capsule daily 02/15 completed 0; Recorded 01/21/20 22 1:08PM by Mila Booker LPN, Office Visit; Not Available Not Available Not Available Ventolin 90 mcg/actua tion aerosol inhaler every 4 hrs prn sob/whee zing 02/15 completed 436; Recorded 01/21/20 22 1:08PM by Mila Booker LPN (Authori jairo through Keisha Valentine MD), Office Visit; Refill Quantity : 1; Each; Not Available Not Available Not Available rosuvasta tin 40 mg tablet TAKE 1 TABLET BY MOUTH EVERY DAY active Not Available Not Available No t Available duloxetin e 60 mg capsule,d elayed release TAKE 1 CAPSULE BY MOUTH EVERY DAY active Not Available Not Available No t Available aspirin daily 02/15 completed 0; Recorded 01/21/20 22 1:08PM by Mila Booker LPN, Office Visit; Not Available Not Available Not Available lorazepam two times daily prn 02/15 completed Recorded 02/05/20 22 11:37AM by Keisha Valentine MD, Refill Request; Refill Quantity : 0; Not Available Not Available Not Available baclofen at bedtime 02/15 completed 436; Recorded 02/03/20 22 2:41PM by Mila Booker LPN (Authori jairo through Keisha Valentine MD), Refill Request; Refill Quantity : 180; Tablet; Not Available Not Available Not Available ipratropi um-albute rol four times daily 02/15 completed Recorded 01/16/20 21 1:19PM by Keisha Valentine MD, Office Visit; Refill Quantity : 360; Millilit er; Not Available Not Available Not Available Vitamin D 1 daily active Not Available Not Av ailable Not Available lisinopri l daily 02/15 completed 436; Recorded 07/01/19 22 11:45AM by Mila Booker LPN (Authori eberd through Keisha Valentine MD), Refill Request; Refill Quantity : 90; Tablet; Not Available Not Available Not Available Narcan 02/15 completed 0; Recorded 01/21/20 22 1:08PM by Mila Booker LPN, Office Visit; Not Available Not Available Not Available leflunomi de daily 02/15 completed 0; Recorded 01/21/20 22 1:08PM by Mila Booker LPN, Office Visit; Not Available Not Available Not Available diclofena c 1 % topical gel APPLY 4 GRAMS TOPICALL Y TO AFFECTED AREA 4 TIMES DAILY NEEDED 2024 active Not Available Not Available Not Avai lable amlodipin e besylate (bulk) daily 01/18 completed 436; Recorded 04/05/19 23 7:41AM by Mila Booker LPN (Authori eberd through Keisha Valentine MD), Refill Request; Refill Quantity : 90; Tablet; Not Available Not Available Not Available Pramipexo le Dihydroch loride at bedtime 02/15 completed DOC LB/sd; 436; Recorded 12/23/19 22 11:04AM by Mila Booker LPN (Authori jairo through Keisha Valentine MD), Refill Request; Refill Quantity : 90; Tablet; Not Available Not Available Not Available naloxone 4 mg/actuat ion nasal spray CALL 911. USE 1 FULL SPRAY IN 1 NOSTRIL ONCE. REPEAT AFTER 2-3 MINS NEEDED IF NO MINIMAL RESPONSE active Not Available Not Available No t Available Trelegy Ellipta 100 mcg-62.5 mcg-25 mcg powder for inhalatio n INHALE 1 PUFF BY MOUTH EVERY DAY active Not Available Not Available No t Available Vitals Date Recorded Body height Body temperature Heart rate Oxygen saturation Oxygen saturation in Arterial blood by Pulse oximetry Systolic And Diastolic Provider Name and Address Organization Details Last Updated DateTime 5 167.64 cm 98 [degF] 81 /min 95 % 95 % 175/68 mm[Hg] MILA BOOKER [facility] 5 11:46:38 Date Recorded Body height Body mass index (BMI) Body weight Oxygen saturation Oxygen saturation in Arterial blood by Pulse oximetry Heart rate Respiratory rate Systolic And Diastolic Provider Name and Address Organization Details Last Updated DateTime 4 167.64 cm 19.4 kg/m2 17841.0 8 g 93 % 93 % 84 /min 20 /min 140/70 mm[Hg] Jossie Uribe [facility] 4 12:55:59 Date Recorded Body height Body temperature Heart rate Oxygen saturation Oxygen saturation in Arterial blood by Pulse oximetry Systolic And Diastolic Provider Name and Address Organization Details Last Updated DateTime 5 167.64 cm 97.4 [degF] 79 /min 92 % 92 % 148/68 mm[Hg] MILA BOOKER [facility] 5 11:28:41 Social History Question Answer Notes LastModified by [employer] Details LastModified Time Tobacco Smoking Status Former Smoker MILA welch [facility] 02/15/2023 14:05:46 When Did You Quit Smoking? 11-15yearssi mau martinez 2009 [email or web address] Information not available 02/15/2023 What Was The Date Of Your Most Recent Tobacco Screening? 11/01/2024 [email or web address] Information not available 11/01/2024 What Is Your Current Pack Years? 30ormorepack years [email or web address] Information not available 08/29/2023 Sex: Unknown Functional Status Question Answer Note LastModified by [employer] Details LastModified Time Do you use any illicit or recreational drugs? No [email or web address] Information not available 02/15/2023 Do you or have you ever used any other forms of tobacco or nicotine? No [email or web address] Information not available 02/15/2023 What is your level of alcohol consumption? None [email or web address] Information not available 02/15/2023 Mental Status None recorded. Family History Relationship Description Onset Age of this Age Resolved Age Notes LastModified by Organization Details LastModified Time Father Diabetes mellitus [email or web address] Not available 02/15 14:05:07 Father Hypertensive disorder [email or web address] Not available 02/15 14:05:13 Medical History No medical history recorded. Gynecological HistoryNo gynecological history recorded. Obstetrics History GPAL:G 0 P 0 0 0 0 Immunizations Vaccine Type Date Status Note Provider Nam e and Address Organization Details Recorded Time Pneumococcal conjugate PCV20, polysaccharide [id number] conjugate, adjuvant, PF 5 completed MILA welch [facility] 05/01/2024 13:07:53 zoster recombinant 5 completed MILA BOOKER null, [facility] LeBssieLBessieC. 05/01/2024 13:08:09 Td(adult) unspecified formulation 2 completed MILA BOOKER null, [facility] LTannerC[facility] 02/15/2023 14:03:30 COVID-19, mRNA, LNP-S, PF, 100 mcg/0.5mL dose or 50 mcg/0.25mL dose 1 completed MILA BOOKER null, [facility] TeresaC. 02/15/2023 14:03:30 COVID-19, mRNA, LNP-S, PF, 100 mcg/0.5mL dose or 50 mcg/0.25mL dose 1 completed MILA welch, [facility] 02/15/2023 14:03:30 Influenza, split virus, trivalent, preservative 2 completed MILA BOOKER null, [facility] LBessieLBessieC. 02/15/2023 14:03:30 zoster recombinant 5 completed MILA welch, [facility] LBessieLBessieC. 11/01/2024 11:47:34 Influenza, recombinant, quadrivalent, PF 0 completed MILA BOOKER null, [facility] 02/15/2023 14:03:30 Influenza, adjuvanted, quadrivalent, PF 2 completed MILA BOOKER null, [facility] 02/15/2023 14:03:30 Tdap 0 completed MILA BOOKER null, [facility] 02/15/2023 14:03:30 Pneumococcal conjugate PCV 13 5 completed MILA BOOKER null, [facility] L.LBrittany 02/15/2023 14:03:30 zoster live 5 completed MILA welch [facility], AllanLBrittany 02/15/2023 14:03:30 Past Encounters Encounter ID Performer Location Encounter Start Date Encounter Closed Date Diagnosis/Indication Diagnosis SNOMED-CT Code Diagnosis ICD10 Code Diagnosis IMO Codes Diagnosis Note [id number] Keisha Valentine MD [facility] [address] [place] [address] [phone] 5 08/11/2022 11:01:54 08/11/2022 15:40:14 Dependence on wheel chair 668946662 Z99.3 Amputee 68204814 Z89.9 Rheumatoid arthritis 698 77126 M06.9 Angina pectoris 80105796 0 I20.9 Peripheral vascular disease 504223573 I73.9 Chronic ob structive pulmonary disease 21212843 J44.9 Phantom li mb syndrome with pain 2854809252 106 G54.6 Hyperlipidemia 63495433 E78.2 will add lipid panel at rheum blood draw. Essential hypertension 56171985 I10 Osteoporosis 67370203 M8 1.0 Bilateral cataracts 9572 2004 H26.9 Depressive disorder 3548 9007 F33.2 Ex-smoker 1761776 Z87.89 1 [id number] Keisha Valentine MD [facility]) [address] [place] [address] [phone] 5 02/15/2023 14:01:20 02/15/2023 14:49:18 Chronic obstructive pulmonary disease 32836784 J44.9 Hypoxia 821893496 R09.02 will request labs from rheumatolo gy and review. [id number] Keisha Valentine MD [facility] [address] [place] [address] [phone] 5 08/22/2023 11:04:55 08/22/2023 12:18:17 Depressive disorder 81706294 F33.2 Hyperlipidemia 03827359 E78.2 will add lipid panel at rheum blood draw. Essential hypertension 08780178 I10 Peripheral vascular disease 003505133 I73.9 Phantom li mb syndrome with pain 2214876297 106 G54.6 Amputated left lower limb above knee 379246110 Z89.612 Dependence on wheel chair 806699200 Z99.3 Angina pectoris 45322772 0 I20.9 Microcytic anemia 293449 007 D50.9 in reviewing rheumatolo gy labs she has a fairly stable microcytic anemia [id number] Keisha Valentine MD [facility] [address] [place] [address] [phone] 5 08/26/2023 11:31:13 08/29/2023 09:24:54 Iron deficiency anemia 10996737 D50.9 [id number] Keisha Valentine MD [facility] [address] [place] [address] [phone] 5 08/29/2023 11:37:36 08/29/2023 12:08:14 Iron deficiency anemia 40884300 D50.9 all signs point toward dietary deficiency . no sign of current bleeding. does require aspirin for pvd/cardia c issues. will continue for now. hgb stable.nee ds to tart iron. iv infusions if not tolerated or improving avoid nsads/extr a asa over 81 mg per day [id number] Keisha Valentine MD [facility] [address] [place] [address] [phone] 5 10/05/2023 11:47:58 10/06/2023 11:55:13 Rheumatoid arthritis 30668290 M06.9 Iron defic iency anemia 72711106 D50.9 all signs point toward dietary deficiency . no sign of current bleeding. does require aspirin for pvd/cardia c issues. will continue for now. hgb stable.nee ds to tart iron. iv infusions if not tolerated or improving avoid nsads/extr a asa over 81 mg per day [id number] Keisha Valentine MD [facility] [address] [place] [address] [phone] 5 10/11/2023 11:42:15 10/11/2023 13:26:25 Iron deficiency anemia 25043410 D50.9 all signs point toward dietary deficiency . no sign of current bleeding. does require aspirin for pvd/cardia c issues. will continue for now. hgb stable.nee ds to start iron. iv infusions if not tolerated or improving avoid nsaids/ext ra asa over 81 mg per day above is previous plan will set up iron infusions if at all possible.w ill recheck hemocculti strongly recommend endoscopy to evaluate for causes of gi bleeding if present. she is eating much better and is going to do ensure as well. cologuard was negative right at 3 years ago. [id number] Med Barnhart DO [facility] [address] [place] [address] [phone] 5 10/18/2023 12:36:27 10/18/2023 17:00:22 Iron deficiency anemia 38023343 D50.9 I have reviewed and discussed EGD and Colonoscop y to investigat e Anemia. Discussed risks vs benefits including risk of infection and bleeding, perforatio n, possible need for surgery, reaction to medication s, and sever injury or . We discussed pt requiring sedation and possible general anesthesia . Pt agrees to proceed with EGD and Colonoscop y at [facility]. Preliminar y procedure date will be 10/27/23. [id number] Keisha Valentine MD [facility] [address] [place] [address] [phone] 5 12/21/2023 11:59:12 12/22/2023 09:24:58 [id number] Keisha Valentine MD [facility] [address] [place] [address] [id number] 5 05/01/2024 11:36:54 05/02/2024 10:54:01 Rheumatoid arthritis 28177350 M06.9 Depressive disorder 3548 9007 F33.2 Chronic ob structive pulmonary disease 52113478 J44.9 Phantom li mb syndrome with pain 4617077942 106 G54.6 wel l controlled on current regimine has flares with the weather it seemsbenef its or current pain regimine outweigh benefits in her mind. she is able to functino with the current meds. Amputated above knee 299 316896 Z89.612 Peripheral vascular disease 079744337 I73.9 Hyperlipidemia 22237341 E78.2 will add lipid panel at rheum blood draw. Essential hypertension 06123766 I10 Osteoporosis 85879325 M8 1.0 Iron defic iency anemia 86900174 D50.9 iron counts are normal she is not anemicshe is eating bettershe is doing meals on wheels Vitamin D deficiency 347 19528 E55.9 Active or passive immunization 417820082 Z23 [id number] Keisha Valentine MD [facility] [address] [place] [address] 10/26/2024 11:30:48 10/29/2024 09:29:34 Essential hypertension 17205003 I10 Hyperlipidemia 08252193 E78.2 will add lipid panel at rheum blood draw. Iron defic iency anemia 65517499 D50.9 iron counts are normal she is not anemicshe is eating bettershe is doing meals on wheels [id number] Keisha Valentine MD [facility] [address] [place] [address] 11/01/2024 11:14:04 11/01/2024 12:24:10 Requires varicella vaccination 089332767 Z23 539327 Rheumatoid arthritis 698 11473 M06.9 Health Concerns Section Related Observation LastModified by Organization Detai ls LastModified Time None Recorded Concern Status LastModified by Organization Details LastModified Time None Recorded Advance Directives Directive None Recorded Payers Insurance Date Sequence Insurance Name Policy Number Policy Galaviz Covered Member ID Galaviz Member ID Guarantor Name 11/08/2024 1 [facility] (MEDICARE REPLACEMENT/A DVANTAGE - PPO) Korin Ryan [id number] Korin Ryan 10/26/2024 2 [place] Korin Ryan [id number] Korin Ryan 11/08/2024 [place] [facility] ([facility]) Korin Ryan [id number] Korin Ryan Notes Date Note Type Note Provider Name and Address Organization Details Recorded Time 4 text/html Colonoscopy ScreeningReported by PatientColonoscopy ScreeningFor gi symptoms, patient reportsno abdominal pain,no diarrhea,no constipation,no recent change in bowel movements,no change in the stool,no color change in stool, andno rectal bleeding. For associated symptoms, patient reportsnormal appetite,no fever,no chills,no nausea, andno vomiting. For context, patient reportsno prior examination,no history of colon polyps, andno history of ulcerative colitis or crohn's disease. For family history, patient reportsno polypsandno colon cancer.ROS as noted in the HPI The patient presents today at the request of Dr. Valentine for evaluation and discussion of EGD and colonoscopy for severe anemia. Plan at last visit 10/11/[address] Valentine: 1. Iron deficiency anemia -all signs point toward dietary deficiency. no sign of current bleeding. does require aspirin for pvd/cardiac issues. will continue for now. hgb stable.needs to start iron. iv infusions if not tolerated or improvingavoid nsaids/extra asa over 81 mg per dayabove is previous planwill set up iron infusions if at all possible.will recheck hemocculti strongly recommend endoscopy to evaluate for causes of gi bleeding if present.she is eating much better and is going to do ensure as well. ======= Pt denies any symptoms. She thinks her Anemia is due to her diet, because I don't cook because I get burned . She doesn't think she needs EGD or Colonoscopy. She is worried about possible bowel perforation. Lab 10/05/23:Hgb 10.0, Iron 27, Ferritin 6. The patient denies any recent abdominal pain, persistent diarrhea, persistent constipation, bloody or dark tarry stools, or mucusy stools. Last Colon Cancer screening: She had a negative FOB test on 08/26/23.No prior Colonoscopy. Problems with anesthesia in the past: NONE Family History of Colon cancers: NONE Blood Thinners: ASA 81mg on hold since last week Co-morbidities: Acid Reflux, taking Pantoprazole. COPD. HTN. RA, immunosuppressed on Methotrexate. Med Barnhart, DO [address] [place] [address], [phone], [facility], [place] 10/21/2023 16:12:43 5 text/html HyperlipidemiaReported by PatientHPIFor duration, patient reportschronic. For control, patient reportsusually well controlled. For adherence to treatment plan, patient reportstakes medications as prescribed. For complications, patient reportsno coronary artery diseaseandno cardiovascular disease. Hypertension IM/FMReported by PatientHPIFor quality, patient reportshere for check-up. For severity, patient reportsnormal (<120/<80 mmhg)andat home bp check: ___ mmg/hg. For duration, patient reportshtn present for ___ years. For onset/timing, patient reportsgradual onset. For alleviating factors, patient reportsmedication. For self care, patient reportsnon-smoker. For associated symptoms, patient reportsno fatigue,no palpitations, andno chest pain. COPDReported by PatientHPI:For aggravating factors, patient reportsworse with exertion(humidity). For associated symptoms, patient reportsdyspnea during exertion (patient reports that she sits and rests for a few minutes and then sxs improve)but reportsnot coughing up sputumandno wheezing. For duration, patient reportschronicandhas noted for years. For severity, patient reportsnot limiting. For alleviating factors, patient reportsrelieved with restandrelieved with bronchodilator.exertional dyspnea is at baseline and unchangedROS as noted in the HPI she reports feeling quite well overallshe is breathing well no chest discomforther bowels are moving wellno abnormal bleeding signs internal or externalthe phantom limb pain comes and goes especially with low pressure s's so that has been worse lately. she hada real bad night with our extreme storms 10 days or so ago. Keisha Valentine MD [address] [place] [address], [phone], [facility], [facility] 05/01/2024 12:34:55 5 text/html HyperlipidemiaReported by PatientHPIFor duration, patient reportschronic. For control, patient reportsusually well controlledandat goal. For adherence to treatment plan, patient reportstakes medications as prescribed. For complications, patient reportsno coronary artery diseaseandno cardiovascular disease. Hypertension IM/FMReported by PatientHPIFor quality, patient reportshere for check-up. For severity, patient reportsat home bp check: ___ mmg/hg(120-140/60-70s). For duration, patient reportshtn present for ___ years. For onset/timing, patient reportsgradual onset. For alleviating factors, patient reportsmedication. For self care, patient reportsnon-smoker. For associated symptoms, patient reportsno fatigue,no palpitations, andno chest pain. AnemiaReported by PatientHPIFor context, patient reportslow iron(resolved she is not taking iron or iron supplements). For timing, patient reportsgradual. For modifying factors, patient reportsrx medication. For associated symptoms, patient reportsno shortness of breath,no chest pain,no blood in stool,no weakness,no fatigue, andno palpitations. COPDReported by PatientHPI:For aggravating factors, patient reportsworse with exertion(humidity). For duration, patient reportschronicandhas noted for years. For severity, patient reportsnot limiting. For alleviating factors, patient reportsrelieved with restandrelieved with bronchodilator. For associated symptoms, patient reportsnot coughing up sputumandno wheezing.exertional dyspnea is at baseline and unchangedROS as noted in the HPI daily she drinks 64 oz of coffee per day and 1 bottle of water dailyshe is eating well. sometime 4 oz of milk Keisha Valentine MD [address] [place] [address], [phone], [facility] [place] 11/01/2024 12:21:58 OBGyn Episode No OBEpisode recorded.
--- OUTSIDE RECORDS SUMMARY | 2024-12-09 14:09 | XMS_ITS | Encounter Summary ---
Author Organization [facility] Address [address] [place] [address] Care Team Providers Care Advance Scout Name Role Phone Unavailable Primary Care Provider Unavailabl e Encounter Details Date Type Department Care Team (Latest Contact Info) Description 03/14/2001 Outpatient Historical [facility] Ryan Burgos MD [address] [place] [address] JOINT PAIN-L/LEG (Primary Dx); TOBACCO USE DISORDER Social History Tobacco Use Types Packs/Day Years Used Date Smoking Tobacco: Never Assessed Comments Unknown Sex and Gender Information Value Date Recorded Sex Assigned at Not on file Legal Sex Female 5:34 AM [employer] Gender Identity Not on file Sexual Orientation Not on file documented as of this encounter Plan of Treatment Not on file documented as of this encounter Visit Diagnoses Diagnosis Pain in joint, lower leg- Primary Tobacco use disorder documented in this encounter
--- OUTSIDE RECORDS SUMMARY | 2024-12-09 14:09 | XMS_ITS | Encounter Summary ---
Author Organization [facility] Address [address] [place] [address] Care Team Providers Care Lens And Frames Prescription Clerk Name Role Phone Unavailable Primary Care Provider Unavailabl e Encounter Details Date Type Department Care Team (Latest Contact Info) Description 01/15/2002 Outpatient Historical [facility] Ryan Burgos MD [address] [place] [address] ARTHROPATHY NOS-UNSPEC (Primary Dx); POSTMENOPAUSAL HORMONAL REPLACMT Social History Tobacco Use Types Packs/Day Years Used Date Smoking Tobacco: Never Assessed Comments Unknown Sex and Gender Information Value Date Recorded Sex Assigned at Not on file 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
--- OUTSIDE RECORDS SUMMARY | 2024-12-09 14:09 | XMS_ITS | Encounter Summary ---
Author Organization [facility] Address [address] [place] [address] Care Team Providers Care Veterans Services Specialist Name Role Phone Unavailable Primary Care Provider Unavailabl e Encounter Details Date Type Department Care Team (Latest Contact Info) Description 02/14/2001 Outpatient Historical [facility] Ryan Burgos MD [address] [place] [address] JOINT PAIN-UNSPEC (Primary Dx) Social History Tobacco Use Types Packs/Day Years Used Date Smoking Tobacco: Never Assessed Comments Unknown Sex and Gender Information Value Date Recorded Sex Assigned at Not on file 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
--- OUTSIDE RECORDS SUMMARY | 2024-12-09 14:09 | XMS_ITS | Clinical Summary ---
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
--- NOTE | 2024-12-09 14:12 | W.ED.SOB ---
HPI - SOB/Dyspnea General: Chief Complaint: Shortness of Breath/Dyspnea Stated Complaint: sob Time Seen by Provider: 12/09/24 14:06 Source: patient and EMS Mode of arrival: EMS Limitations: no limitations History of Present Illness: HPI Narrative: 78-year-old female has a history of COPD states she had been having increasing shortness of breath over the last 4 days. She states that she has also had an increased cough as well denies any fevers. She states she is more short of breath today does not wear oxygen at home EMS states she was in the 70s on room air. She did receive a breathing treatment and route is currently on 4 L. She denies any chest pain denies any vomiting. Related Data Home Medications ?Medication ?Instructions ?Recorded ?Confirmed amlodipine 10 mg tablet 10 mg PO DAILY 12/15/20 12/09/24 aspirin 81 mg tablet,delayed 81 mg PO DAILY 12/15/20 12/09/24 release baclofen 10 mg tablet 10 mg PO DAILY 12/15/20 12/09/24 montelukast 10 mg tablet 10 mg PO DAILY 12/15/20 12/09/24 naloxone 0.4 mg/mL injection 0.4 mg IM Q2M PRN overdose 12/15/20 12/09/24 solution acetaminophen 500 mg tablet 500 mg PO Q6H PRN Pain 12/16/20 12/09/24 (Tylenol Extra Strength) isosorbide mononitrate 30 mg 30 mg PO DAILY 12/16/20 12/09/24 tablet,extended release 24 hr lorazepam 0.5 mg tablet 0.5 mg PO BID PRN Anxiety 12/16/20 12/09/24 pramipexole 0.125 mg tablet 0.125 mg PO DAILY 12/16/20 12/09/24 tramadol 50 mg tablet 100 mg PO TID PRN Pain 12/16/20 12/09/24 cholecalciferol (vitamin D3) 50 50 mcg PO BID 12/09/24 12/09/24 mcg (2,000 unit) tablet (Vitamin D3) duloxetine 60 mg capsule,delayed 60 mg PO DAILY 12/09/24 12/09/24 release fluticasone fur. 100 mcg-umeclid 1 inh inhalation QAM 12/09/24 12/09/24 62.5 mcg-vilant 25 mcg inhalat.powder (Trelegy Ellipta) pantoprazole 40 mg tablet,delayed 40 mg PO DAILY 12/09/24 12/09/24 release rosuvastatin 40 mg tablet 40 mg PO DAILY 12/09/24 12/09/24 Previous Rx's ?Medication ?Instructions ?Recorded lisinopril 40 mg tablet 40 mg PO DAILY #90 tabs 05/03/22 Allergies Allergy/AdvReac Type Severity Reaction Status Date / Time No Known Allergies Allergy Verified 12/09/24 14:13 Review of Systems Resp: Reports: dyspnea and wheezing PFS ED PFSH: Medical History (Updated 12/09/24 @ 15:58 by Jolene Poole MD) Anxiety GERD (gastroesophageal reflux disease) Left above-knee amputee Immunization counseling High risk medication use Seropositive rheumatoid arthritis of multiple sites Joint pain Hypertension History of hypercholesterolemia COPD (chronic obstructive pulmonary disease) Surgical History History of total knee arthroplasty left Family History Other CAD (coronary artery disease) Diabetes Hyperlipidemia Hypertension Lung disease Stroke Social History (Updated 08/09/23 @ 13:38 by Jodie Marcelino LPN) Smoking and tobacco/nicotine status: former use of tobacco/nicotine Alcohol intake: current Alcohol intake frequency: holidays/special occasions only Physical Exam Const: COMMON NORMALS: patient oriented x3 HENMT: COMMON NORMALS: normocephalic and atraumatic HEAD & SCALP: normocephalic and atraumatic Neck/C-Spine: COMMON NORMALS: full ROM and supple Chest: COMMONS NORMALS: normal inspection of the chest Resp: COMMON NORMALS: No retractions and No use of accessory muscles EFFORT & INSPECTION: Yes labored AUSCULTATION: wheezes Cardio: COMMON NORMALS: regular rate, regular rhythm and No murmurs present (Cardio) RATE: regular rate RHYTHM: regular rhythm GI: COMMON NORMALS: Normal to inspection, nondistended, normoactive bowel sounds present, Soft to palpation, non-tender and no masses PALPATION: Yes Soft to palpation Extremity: COMMON NORMALS: normal to inspection and full ROM Neuro: COMMON NORMALS: patient oriented x3, moves all extremities and no focal motor deficits Psych: COMMON NORMALS: mental status grossly normal, Normal thought process present and cooperative THOUGHT PROCESS: Normal thought process present Skin: COMMON NORMALS: no rashes or lesions noted and no wounds GENERAL SKIN EXAM: no rashes or lesions noted Course Vital Signs: Vital signs: Vital Signs Temperature 98.2 F 12/09/24 14:05 Pulse Rate 92 12/09/24 14:23 Respiratory Rate 18 12/09/24 14:23 Blood Pressure 111/56 12/09/24 14:05 Pulse Oximetry 90 12/09/24 14:23 Oxygen Delivery Me thod Nasal Cannula 12/09/24 14:23 Oxygen Flow Rate 3 12/09/24 14:23 MDM - SOB/Dyspnea Medical Decision Making Patient presents here with shortness of breath. Differential includes COPD exacerbation, pneumonia, pulm emboli. CT scan shows no signs of pulm emboli she does have bilateral lower lobe pneumonias. She does have an elevated white count lactate here was normal did give her sepsis bolus along with IV antibiotics. She is hyponatremic as well with sodium of 112. EKG here showed normal sinus rhythm heart rate [address] elevation QRS 114 QTc 409. Due to the severe hyponatremia will admit to the ICU I spoke to hospitalist Dr. Ware who is admitting. I did go over these findings with patient and she understands agrees to plan Medical Records I reviewed the patient's medical records. Lab Data I reviewed the patient's lab results. 12/09/24 14:01 12/09/24 14:56 Labs/Radiology: Radiology Impressions Chest X-Ray 12/09/24 14:07 IMPRESSION: 1. Mild increased density is present in the left retrocardiac region and lateral right lung base. Appearance is concerning for mild bibasilar pneumonia. 2. Radiographic findings suggesting COPD. Chest CTA 12/09/24 14:50 IMPRESSION: 1. No evidence for pulmonary embolism. 2. Bilateral lower lobe consolidation, most consistent with pneumonia. 3. Marked carotid bulb calcification is partially imaged bilaterally. 4. Mild T11 compression fracture of indeterminate age. 5. Severe centrilobular bullous disease, primarily in the upper lobes. Laboratory Results WBC 44.17 10^3/uL (3.29-11.43) H* 12/09/24 14:01 RBC 3.71 10^6/uL (3.85-5.65) L 12/09/24 14:01 Hgb 11.20 g/dL (11.27-16.99) L 12/09/24 14:01 Hct 31.6 % (36-47) L 12/09/24 14:01 MCV 85.2 fl (85-98) 12/09/24 14:01 MCH 30.2 pg (27-33) 12/09/24 14:01 MCHC 35.4 g/dL (30-55) 12/09/24 14:01 RDW 14.2 % (12.1-15.1) 12/09/24 14:01 Plt Count 417 10^3/cmm (157-399) H 12/09/24 14:01 MPV 9.1 fL (7.4-10.4) 12/09/24 14:01 Neut % (Auto) 93.6 % 12/09/24 14:01 Lymph % (Auto) 1.0 % 12/09/24 14:01 Stafford % (Auto) 3.9 % 12/09/24 14:01 Eos % (Auto) 0.0 % 12/09/24 14:01 Baso % (Auto) 0.2 % 12/09/24 14:01 Neut # (Auto) 41.32 10^3/uL (1.8-7.7) H 12/09/24 14:01 Lymph # (Auto) 0.5 10^3/uL (0.8-4.8) L 12/09/24 14:01 Stafford # (Auto) 1.7 10^3/uL (0.2-0.9) H 12/09/24 14:01 Eos # (Auto) 0.0 10^3/uL (0.0-0.8) 12/09/24 14:01 Baso # (Auto) 0.1 10^3/uL (0.0-0.1) 12/09/24 14:01 Nucleated RBC % (auto) 0 % 12/09/24 14:01 Nucleated RBCs # 0.0 /100WBC 12/09/24 14:01 Specimen Type Arterial 12/09/24 14:44 Sample Site Radial, left 12/09/24 14:44 ABG pH 7.37 (7.35-7.45) 12/09/24 14:44 ABG pCO2 38.6 mmHg (35-45) 12/09/24 14:44 ABG pO2 55.7 mmHg (80.0-100.0) L 12/09/24 14:44 ABG HCO3 22.5 mmol/L (22-26) 12/09/24 14:44 ABG Base Excess -2.5 mmol/L (-2.0-2.0) L 12/09/24 14:44 Devon Test Pos 12/09/24 14:44 Hematocrit 33.6 % (37-47) L 12/09/24 14:44 O2 Delivery Device Nc 12/09/24 14:44 O2 Liters/Min 3.0 % 12/09/24 14:44 Workplace Trainer And Assessor ID [place] 12/09/24 14:44 Sodium 112 mmol/L (136-145) L* 12/09/24 14:56 Potassium 4.3 mmol/L (3.5-5.1) 12/09/24 14:56 Chloride 79 mmol/L (98-107) L 12/09/24 14:56 Carbon Dioxide 20 mmol/L (22-29) L 12/09/24 14:56 Anion Gap 17.3 (5-19) 12/09/24 14:56 BUN 10 mg/dL (8-23) 12/09/24 14:56 Creatinine 0.6 mg/dL (0.5-0.9) 12/09/24 14:56 GFR Calculation Not Reportable 12/09/24 14:56 Glucose 115 mg/dL (65-115) 12/09/24 14:56 Calculated Osmolality 234 mOsm/kg (285-295) L 12/09/24 14:56 Lactic Acid 1.6 mmol/L (0.5-2.2) 12/09/24 14:17 Calcium 8.5 mg/dL (8.5-10.5) 12/09/24 14:56 Total Bilirubin 0.5 mg/dL (0.15-1.2) 12/09/24 14:01 AST 51 U/L (0-32) H 12/09/24 14:01 ALT 34 U/L (0-33) H 12/09/24 14:01 Alkaline Phosphatase 122 U/L (35-105) H 12/09/24 14:01 NT-Pro-B Natriuret Pep 3355 pg/mL (0-450) H 12/09/24 14:01 Total Protein 6.8 g/dL (6.6-8.7) 12/09/24 14:01 Albumin 3.3 g/dL (3.5-5.2) L 12/09/24 14:01 Globulin 3.5 g/dL (1.3-4.6) 12/09/24 14:01 All radiology interpretation(s) finalized by discharge EKG Data EKG 1: I personally reviewed and interpreted this EKG as follows: EKG Interpretation Date: 12/09/24 EKG interpretation time: 14:33 Interpretation: nsr hr [address] elevation qrs 114 qtc 409 Critical Care Time Critical Care Time: Critical Care Time: Yes Total Critical Care Time: 45 Attestation: The high probability of a clinically significant, sudden or life threatening deterioration of the patient's resp system(s) required my full and direct attention, intervention and personal management. The critical care time is as shown. This time is in addition to time spent performing any reported procedures but includes the following: [x] Data and vital sign review and interpretation [x] Patient assessment, examination and intervention [x] Documentation [x] Medication orders and management Discharge Plan Discharge Patient Disposition: Admitted As Inpatient Clinical Impression: Community acquired pneumonia, Acute respiratory failure with hypoxia, Hyponatremia Condition: Stable Coding Level of Care Code ED Lens Cleaner for Kimberly Madrigal
[2024-12-09 14:16] LABS: Hematocrit 31.6 % (36-47); Hemoglobin 11.20 g/dL (11.27-16.99); Mean Corpuscular HGB Conc 35.4 g/dL (30-55); Mean Corpuscular Hemoglobin 30.2 pg (27-33); Mean Corpuscular Volume 85.2 fl (85-98); Nucleated Red Blood Cells % 0 %; Platelet Count 417 10^3/cmm (157-399); Red Blood Count 3.71 10^6/uL (3.85-5.65)
--- NOTE | 2024-12-09 14:33 | ECG_ITS ---
[facility] Date: 2024-12-09 Pat Name: Korin Ryan Department: Room: Gender: Female Credit Administration Specialist: : [id number] Requested By: Jolene Poole Order Number: [id number] Darryl MD: Albino Hbuer M.D. Measurements Intervals Gregory Rate: 93 P: 73 TX: 130 QRS: 69 QRSD: 84 T: 81 QT: 320 QTc: 398 Interpretive Statements SINUS RHYTHM WITH SINUS ARRHYTHMIA NONSPECIFIC T-WAVE ABNORMALITY Compared to ECG 12/29/2022 13:03:13 Short TX interval no longer present T-wave abnormality still present Electronically Signed On 12-09-2024 15:28:26 WHARF HAND by Albino Huber M.D. [id number]
[2024-12-09 14:39] LABS: Alanine Aminotransferase 34 U/L (0-33); Albumin Level 3.3 g/dL (3.5-5.2); Alkaline Phosphatase 122 U/L (35-105); Aspartate Amino Transferase 51 U/L (0-32); Blood Urea Nitrogen 9 mg/dL (8-23); Calcium 9.3 mg/dL (8.5-10.5); Carbon Dioxide 22 mmol/L (22-29); Chloride 79 mmol/L (98-107); Globulin 3.5 g/dL (1.3-4.6); Glucose 100 mg/dL (65-115); Osmolality Calculated 235 mOsm/kg (285-295); Total Protein 6.8 g/dL (6.6-8.7)
[2024-12-09 14:40] LABS: Anion Gap 16.8 (5-19); Potassium 4.8 mmol/L (3.5-5.1)
[2024-12-09 14:41] LABS: Sodium 113 mmol/L (136-145); White Blood Count 44.17 10^3/uL (3.29-11.43)
--- NOTE | 2024-12-09 14:50 | CTR_ITS ---
PROCEDURE INFORMATION: Exam: CTA Chest With Contrast Exam date and time: 12/09/2024 4:03 PM Age: 78 years old Clinical indication: Shortness of breath; Additional info: SOB TECHNIQUE: Imaging protocol: Computed tomographic angiography of the chest with contrast. Exam focused on the arteries. 3D rendering (Not supervised by radiologist): MIP and/or 3D reconstructed images were created by the technologist. Radiation optimization: All CT scans at this facility use at least one of these dose optimization techniques: automated exposure control; mA and/or kV adjustment per patient size (includes targeted exams where dose is matched to clinical indication); or iterative reconstruction. Contrast material: OMNI 350; Contrast volume: 51 ml; Contrast route: INTRAVENOUS (IV); COMPARISON: CT lung screening [id number] 04/15/2021 1:10 PM RADIATION DOSE METRICS: Total DLP (mGy-cm): 230.12 FINDINGS: Pulmonary arteries: Normal. No pulmonary emboli. Aorta: Severe atherosclerotic calcification of the thoracic aorta, specifically the aortic arch. Marked carotid bulb calcification is partially imaged bilaterally. Renal arteries: Right kidney is atrophic, which could be on the basis of renal artery stenosis. Severe origin stenosis of the SMA, which is enhanced distally. Lungs: Severe centrilobular bullous disease, primarily in the upper lobes. 9 cm focus of posteromedial consolidation left lobe, consistent with pneumonia. 7 cm region of posteromedial consolidation in the right lower lobe, consistent with pneumonia. Mild infiltrate or atelectasis in the right middle lobe. Pleural spaces: Mild dependent pleural effusions bilaterally. No pneumothorax. Heart: Calcification involves the mitral annulus and aortic valve. Coronary arteries: Severe coronary artery calcifications. Lymph nodes: Unremarkable. No enlarged lymph nodes. Bones/joints: Mild T11 compression fracture of indeterminate age. Soft tissues: Unremarkable. CT/CT angio chest PE protcl [id number] IMPRESSION: 1. No evidence for pulmonary embolism. 2. Bilateral lower lobe consolidation, most consistent with pneumonia. 3. Marked carotid bulb calcification is partially imaged bilaterally. 4. Mild T11 compression fracture of indeterminate age. 5. Severe centrilobular bullous disease, primarily in the upper lobes.
[2024-12-09 14:55] LABS: ABG PCO2 38.6 mmHg (35-45); ABG PH Result 7.37 (7.35-7.45); Arterial Blood Gas Hematocrit 33.6 % (37-47); Blood Gas Allen Test Pos; Blood Gas LPM 3.0 %; Blood Gas Operator Identificat WALCI; Blood Gas Sample Site Radial, left; Blood Gas Sample Type Arterial; HCO3 ABG 22.5 mmol/L (22-26); PO2 ABG 55.7 mmHg (80.0-100.0)
[2024-12-09 15:00] LABS: NT Pro B Type Natriuretic Pept 3355 pg/mL (0-450)
[2024-12-09] MEDS: iohexol 350 mg/mL 500 mL Btl (per mL) IV (15:09)
[2024-12-09] MEDS: methylPREDNISolone sod succ 125 mg/2 mL INJ IV (15:14)
[2024-12-09] MEDS: cefTRIAXone 1,000 mg SDV 1000 MG IVP (15:15)
[2024-12-09 15:16] LABS: Lactic Sepsis W/Reflex 1.6 mmol/L (0.5-2.2)
[2024-12-09 15:19] LABS: Anion Gap 17.3 (5-19); Blood Urea Nitrogen 10 mg/dL (8-23); Calcium 8.5 mg/dL (8.5-10.5); Carbon Dioxide 20 mmol/L (22-29); Chloride 79 mmol/L (98-107); Glucose 115 mg/dL (65-115); Osmolality Calculated 234 mOsm/kg (285-295); Potassium 4.3 mmol/L (3.5-5.1)
[2024-12-09 15:20] LABS: Sodium 112 mmol/L (136-145)
--- NOTE | 2024-12-09 17:12 | PM.HP ---
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, rheumatoid arthritis presents [facility] due to increased shortness of breath, patient is alert oriented x 2, follow commands, does require frequent redirection, frequently questioning, daughter is at bedside who helps with history taking, patient lives at home by herself, for the last 4 days she has been increasingly short of breath short of breath with minimal exertion, without productive cough, no fevers, does report chills, no nausea, no vomiting, abdominal pain she does have a lot of birds in the home including exotic birds, she does not vape, she quit smoking, no falls, no injuries, no chest pain currently she is on 4 L, nasal flaring, intercostal suprasternal retractions, mild respiratory distress short of breath with a few words, discussed with family her sepsis, bilateral lower lobe pneumonia, her hyponatremia does report poor oral intake, over the last 4 days, Review of Systems Const: Reports: chills, fatigue and malaise; Denies: fever(s) Eyes: Denies: change in vision Card: Denies: chest pain Resp: Reports: dyspnea and productive cough GI: Denies: abdominal pain : Denies: flank pain Medications/Allergies Home Medications ?Medication ?Instructions ?Recorded ?Confirmed ?Last Taken ?Type amlodipine 10 mg tablet 10 mg PO DAILY 12/15/20 12/09/24 12/09/24 History aspirin 81 mg tablet,delayed 81 mg PO DAILY 12/15/20 12/09/24 12/09/24 History release baclofen 10 mg tablet 10 mg PO DAILY 12/15/20 12/09/24 12/09/24 History montelukast 10 mg tablet 10 mg PO DAILY 12/15/20 12/09/24 12/09/24 History naloxone 0.4 mg/mL injection 0.4 mg IM Q2M PRN overdose 12/15/20 12/09/24 Unknown History solution acetaminophen 500 mg tablet 500 mg PO Q6H PRN Pain 12/16/20 12/09/24 Unknown History (Tylenol Extra Strength) isosorbide mononitrate 30 mg 30 mg PO DAILY 12/16/20 12/09/24 12/09/24 History tablet,extended release 24 hr lorazepam 0.5 mg tablet 0.5 mg PO BID PRN Anxiety 12/16/20 12/09/24 Unknown History pramipexole 0.125 mg tablet 0.125 mg PO DAILY 12/16/20 12/09/24 12/09/24 History tramadol 50 mg tablet 100 mg PO TID PRN Pain 12/16/20 12/09/24 12/09/24 History lisinopril 40 mg tablet 40 mg PO DAILY #90 tabs 05/03/22 12/09/24 12/09/24 Rx cholecalciferol (vitamin D3) 50 50 mcg PO BID 12/09/24 12/09/24 12/09/24 History mcg (2,000 unit) tablet (Vitamin D3) duloxetine 60 mg capsule,delayed 60 mg PO DAILY 12/09/24 12/09/24 12/09/24 History release fluticasone fur. 100 mcg-umeclid 1 inh inhalation QAM 12/09/24 12/09/24 12/09/24 History 62.5 mcg-vilant 25 mcg inhalat.powder (Trelegy Ellipta) pantoprazole 40 mg tablet,delayed 40 mg PO DAILY 12/09/24 12/09/24 12/09/24 History release rosuvastatin 40 mg tablet 40 mg PO DAILY 12/09/24 12/09/24 12/08/24 History Allergies Allergy/AdvReac Type Severity Reaction Status Date / Time No Known Allergies Allergy Verified 12/09/24 14:13 PFSH Acute PFSH: Medical History Anxiety GERD (gastroesophageal reflux disease) Left above-knee amputee Immunization counseling High risk medication use Seropositive rheumatoid arthritis of multiple sites Joint pain Hypertension History of hypercholesterolemia COPD (chronic obstructive pulmonary disease) Surgical History History of total knee arthroplasty left Family History Other CAD (coronary artery disease) Diabetes Hyperlipidemia Hypertension Lung disease Stroke Social History Smoking and tobacco/nicotine status: former use of tobacco/nicotine Alcohol intake: current Alcohol intake frequency: holidays/special occasions only Vitals/I&O/Wt Last Vital Signs Temp 98.2 F 12/09/24 14:05 Pulse 101 H 12/09/24 16:00 Resp 24 H 12/09/24 16:00 BP 123/79 12/09/24 16:00 Pulse Ox 91 12/09/24 16:00 O2 Del Method Oxymask 12/09/24 16:00 O2 Flow Rate 4 12/09/24 16:00 12/09/24 12/09/24 12/09/24 05:59 14:59 22:59 Intake Total 0 / 0 732.6 / 732.6 Balance 0 / 0 732.6 / 732.6 Weight last 48 hrs Weight 54.431 kg Physical Exam Const: COMMON NORMALS: no acute distress ORIENTATION/CONSCIOUSNESS: Yes awake, Yes oriented to person and Yes oriented to place; not oriented to time Eye: COMMON NORMALS: Equal, round and reactive pupils present and EOMs intact bilaterally Neck/C-Spine: COMMON NORMALS: no lymphadenopathy Resp: COMMON NORMALS: normal respiratory effort, No retractions, No use of accessory muscles and clear to auscultation bilaterally AUSCULTATION: crackles and wheezes Cardio: COMMON NORMALS: regular rate, regular rhythm, S1 normal heart sound present and S2 normal heart sound present RATE: regular rate RHYTHM: regular rhythm HEART SOUNDS: S1 normal heart sound present and S2 normal heart sound present GI: COMMON NORMALS: Normal to inspection, nondistended, normoactive bowel sounds present, Soft to palpation and non-tender Extremity: COMMON NORMALS: no pedal edema Neuro: COMMON NORMALS: patient oriented x3, CN's II-XII intact bilaterally and moves all extremities Psych: COMMON NORMALS: mental status grossly normal Data 12/09/24 14:01 12/09/24 14:56 Micro: Microbiology 12/09/24 14:58 Blood Culture - Preliminary Blood SPECIMEN COLLECTED 12/09/24 14:56 Blood Culture - Preliminary Blood SPECIMEN COLLECTED A&P Assessment and plan 1. Hypertension: 2. Bilateral pneumonia: 3. Acute respiratory failure with hypoxia: Plan: Acute hypoxic respiratory failure Bilateral pneumonia COPD exacerbation CT/CT angio chest PE protcl [id number] IMPRESSION: 1. No evidence for pulmonary embolism. 2. Bilateral lower lobe consolidation, most consistent with pneumonia. 3. Marked carotid bulb calcification is partially imaged bilaterally. 4. Mild T11 compression fracture of indeterminate age. 5. Severe centrilobular bullous disease, primarily in the upper lobes. Plan -Secondary to bilateral lower lobe pneumonia -Broaden antibiotic coverage to vancomycin, cefepime -Solu-Medrol 40 mg IV every 8 hours -Sputum culture -Blood culture -DuoNeb -Budesonide -Full code -Lovenox for DVT prophylaxis Transaminitis Sepsis secondary to bilateral pneumonia, acute hypoxic respiratory failure Acute encephalopathy, metabolic -Secondary sepsis, hypoxia, pneumonia, hyponatremia -Monitor mentation closely Acute on chronic hyponatremia -Baseline sodium is 128-130 - Serum 113 -Has been received sepsis bolus in the emergency room -Will recheck serum sodium at 6 PM -Recheck serum sodium every 2 hours or after -Nephrology consulted, will consider hypertonic saline -Seizure precautions, neurochecks Full code Lovenox for DVT prophylaxis PDMP PDMP Reviewed: Not Reviewed Attestations Medical Necessity Statement*: Patient request hospitalization for bilateral pneumonia, sepsis, hyponatremia, encephalopathy, inpatient, greater than 2 midnights Diagnoses Hypertension I10 Bilateral pneumonia J18.9 Acute respiratory failure with hypoxia J96.01 Sepsis Event Note Evaluation Current stage of sepsis: sepsis Initial hypotension due to sepsis/infection: SBP < 90 mmHg Persistent hypotension due to sepsis/infection: SBP < 90 mmHg Possible source: pulmonary Focused Exam Vital Signs Temp Pulse Resp BP Pulse Ox O2 Del Method O2 Flow Rate 12/09/24 16:54 96 121/60 90 12/09/24 16:00 101 H 24 H 123/79 91 Oxymask 4 12/09/24 15:30 99 91 H 121/81 91 Nasal Cannula 4 12/09/24 14:30 96 22 H 124/68 92 Nasal Cannula 4 12/09/24 14:23 92 18 90 Nasal Cannula 3 12/09/24 14:05 98.2 F 95 24 H 111/56 86 L Room Air Respiratory exam: Present wheezes Cardiovascular exam: Present tachycardia Skin exam: normal turgor Date exam was performed: 12/09/24 Time exam was performed: 17:18 Problem List 1. Hypertension: Status: Acute 2. Bilateral pneumonia: Status: Acute 3. Acute respiratory failure with hypoxia: Status: Acute
--- NOTE | 2024-12-09 17:34 | ECG_ITS ---
[facility]: 2024-12-09 Pat Name: Korin Ryan Department: Room: ICU10 Gender: Female Ip/Mosaic Technician: : 1945 Requested By: Noé Hernandez Order Number: [id number] Darryl MD: Radha Lucero M.D. Measurements Intervals [place] Rate: 86 P: 52 CO: 112 QRS: 61 QRSD: 94 T: 52 QT: 392 QTc: 470 Interpretive Statements SINUS RHYTHM WITH SINUS ARRHYTHMIA WITH SHORT CO INTERVAL NONSPECIFIC T-WAVE ABNORMALITY Compared to ECG 12/09/2024 14:33:44 Short CO interval now present T-wave abnormality still present Electronically Signed On 12-11-2024 22:16:35 E MAIL SYSTEM ADMINISTRATOR by Radha Lucero M.D. [id number]
--- NOTE | 2024-12-09 17:46 | P.CONIM_ITS ---
Providers/Reason For Consult 2 Consulting Physician/Specialty*: kommana/Nephrology Reason for Consult*: Hyponatremia Attending Physician: Noé Hernandez MD Primary Care Provider: Matt Elias MD History of Present Illness History of Present Illness Korin Ryan is a 78 year old female with PMH of COPD , GERD ,, HTN , left AKA, RA , presents [facility] due to increased shortness of breath. CXR showed rick consolidations, Lab data sig for Na 113 on presentation. Repeat Na was 112. WBC count was 44,000. Co2 level was 20. pt recieved IVFs in ED. Pt admiited to ICU and awaiting repeat Na. Prior Na 128 in 2022. Pt taking cymbalta at home Review of Systems 2 Narrative: negative Medications/Allergies Home Medications ?Medication ?Instructions ?Recorded ?Confirmed ?Last Taken ?Type amlodipine 10 mg tablet 10 mg PO DAILY 12/15/2004/0312/09/24 History aspirin 81 mg tablet,delayed 81 mg PO DAILY 12/15/20 1 02/09/24 12/09/24 History release baclofen 10 mg tablet 10 mg PO DAILY 12/15/2004/0312/09/24 History montelukast 10 mg tablet 10 mg PO DAILY 12/15/2004/0312/09/24 History naloxone 0.4 mg/mL injection 0.4 mg IM Q2M PRN overdos e 12/15/20 12/09/24 Unknown History solution acetaminophen 500 mg tablet 500 mg PO Q6H PRN Pain 10/2812/09/24 Unknown History (Tylenol Extra Strength) isosorbide mononitrate 30 mg 30 mg PO DAILY 12/16/20 1 02/09/24 12/09/24 History tablet,extended release 24 hr lorazepam 0.5 mg tablet 0.5 mg PO BID PRN Anxiety 12/09/24 Unknown History pramipexole 0.125 mg tablet 0.125 mg PO DAILY 12/16/20 12/09/24 12/09/24 History tramadol 50 mg tablet 100 mg PO TID PRN Pain 12/1612/09/24 12/09/24 History lisinopril 40 mg tablet 40 mg PO DAILY #90 tabs 04/0812/09/24 12/09/24 Rx cholecalciferol (vitamin D3) 50 50 mcg PO BID 12/09/24 12/09/24 12/09/24 History mcg (2,000 unit) tablet (Vitamin D3) duloxetine 60 mg capsule,delayed 60 mg PO DAILY 12/09/24 12/09/24 History release fluticasone fur. 100 mcg-umeclid 1 inh inhalation QAM 12/09/24 12/09/24 12/09/24 History 62.5 mcg-vilant 25 mcg inhalat.powder (Trelegy Ellipta) pantoprazole 40 mg tablet,delayed 40 mg PO DAILY 12/0912/09/24 12/09/24 History release rosuvastatin 40 mg tablet 40 mg PO DAILY 12/09/2404/0312/08/24 History Allergies Allergy/AdvReac Type Severity Reaction Status Date / Time No Known Allergies Allergy Verified 12/09/24 14:13 PFSH Acute 2 PFSH: Medical History (Updated 12/09/24 @ 17:19 by Noé Hernandez MD) Anxiety GERD (gastroesophageal reflux disease) Left above-knee amputee Immunization counseling High risk medication use Seropositive rheumatoid arthritis of multiple sites Joint pain Hypertension History of hypercholesterolemia COPD (chronic obstructive pulmonary disease) Surgical History History of total knee arthroplasty left Family History Other CAD (coronary artery disease) Diabetes Hyperlipidemia Hypertension Lung disease Stroke Social History Smoking and tobacco/nicotine status: former use of tobacco/nicotine Alcohol intake: current Alcohol intake frequency: holidays/special occasions only Vitals/I&O/Wt Last Vital Signs Temp 98.2 F 12/09/24 14:05 Pulse 96 12/09/24 16:54 Resp 24 H 12/09/24 16:00 BP 121/60 12/09/24 16:54 Pulse Ox 90 12/09/24 16:54 O2 Del Method Oxymask 12/09/24 16:00 O2 Flow Rate 4 12/09/24 16:00 12/09/24 12/09/24 12/09/24 05:59 14:59 22:59 Intake Total 0 / 0 732.6 / 732.6 Balance 0 / 0 732.6 / 732.6 Weight last 48 hrs Weight 55.474 kg Weight 54.431 kg Physical Exam 2 Narrative: awake , alert , no distress on O2 via face mask No JVD PEERLA S1S2 RRR lungs with decreased BS rick Ext no edema No skin rash Data 12/09/24 14:01 12/09/24 14:56 Micro: Microbiology 12/09/24 14:58 Blood Culture - Preliminary Blood SPECIMEN COLLECTED 12/09/24 14:56 Blood Culture - Preliminary Blood SPECIMEN COLLECTED A&P Assessment and plan 1. Hyponatremia: 1. Acute on chromic Hyponatremia : Chronic Hyponatremia likely SSRI induced. Acute drop in Na likely from poor oral intake in the setting of acute infection, sepsis. - Check sodium q 2 hours , awaiting next Na level , may require 3% saline - Check U na and Urine Osmilality -Goal correction - upto 6 mEQ in 24 hours - check TSH and Cortisol levels 2. Acute resp failure sec to pneumonia 3. metabolic encephalopathy 4. Metabolic acidosis , mild , monitor pt evaluated using audiovisualc artBessie Srivastava spent 40 min Plan: per [facility] PDMP PDMP Reviewed: Not Reviewed Coding Level of Care Code Acute Code for Chg Fwd Diagnoses Hyponatremia E87.1
[2024-12-09] MEDS: pantoprazole 40 mg SDV IVP (18:07)
[2024-12-09 18:16] LABS: Estmated Average Glucose 123; Hemoglobin A1C 5.9 % (4.0-6.0)
[2024-12-09 18:21] LABS: HIV 1 & 2 Antigen Non-Reactive (Non-Reactiv)
[2024-12-09 18:27] LABS: Troponin(5th) Baseline 16 ng/L (0-10)
[2024-12-09 18:32] LABS: Hepatitis A Antibody IgM Non-Reactive (Nonreactive); Hepatitis B Surface Antigen Non-Reactive (Nonreactive)
[2024-12-09 18:34] LABS: Procalcitonin 0.77 ng/mL (0-0.5); Thyroid Stimulating Hormone 0.59 uIU/mL (0.27-4.20)
[2024-12-09 18:45] LABS: Cholesterol 69 mg/dL (0-200); HDL Cholesterol 31 mg/dL (60-100); Lipase 9 U/L (13-60); Triglycerides 51 mg/dL (0-150)
[2024-12-09 19:04] LABS: Sodium 116 mmol/L (136-145)
--- NOTE | 2024-12-09 19:12 | ECG_ITS ---
[facility] Test Date: 2024-12-09 Pat Name: Korin Ryan Department: Room: ICU10 Gender: Female Certified Court/Medical Interpreter: : 1945 Requested By: Noé Hernandez Order Number: [id number] Darryl MD: Radha Lucero M.D. Measurements Intervals [place] Rate: 89 P: 17 IN: 106 QRS: 22 QRSD: 93 T: 60 QT: 357 QTc: 436 Interpretive Statements SINUS RHYTHM WITH SINUS ARRHYTHMIA WITH SHORT IN INTERVAL NONSPECIFIC T-WAVE ABNORMALITY Compared to ECG 12/09/2024 17:34:33 No significant changes Electronically Signed On 12-11-2024 22:34:56 MODELING MANAGER by Radha Lucero M.D. [id number]
[2024-12-09 19:47] LABS: PCP Screen Urine Negative (Negative); Potassium, Radom Urine 16 mmol/L
[2024-12-09 19:55] LABS: Sodium 116 mmol/L (136-145)
[2024-12-09 20:01] LABS: Urine Random Chloride < 10 mmol/L; Urine Random Sodium < 10 mmol/L
[2024-12-09 20:35] LABS: Troponin 5 2HR 19.01 ng/L (0-10); Troponin 5 2HR Delta 3.01 ABS# (0-10)
[2024-12-09 20:43] LABS: Urine Eosinophil Count 0 (0-0)
--- NOTE | 2024-12-09 21:07 | PC.NURSE ---
Pt assisted to BSC, became very short of breath with activity and was difficult to recover. Reported to Dr. Padilla, new order received to place barboza.
[2024-12-09 21:18] LABS: Coronavirus 229E,HKU1,NL63,OC4 Not Detected (NOT DETECT); Parainfluenza Virus Type 1 Not Detected (NOT DETECT); Parainfluenza Virus Type 2 Not Detected (NOT DETECT); Parainfluenza Virus Type 3 Not Detected (NOT DETECT); Parainfluenza Virus Type 4 Not Detected (NOT DETECT); SARS-COV-2 Not Detected (NOT DETECT)
[2024-12-09 22:06] LABS: Ferritin 777 ng/mL (15-150)
[2024-12-09 22:35] LABS: Sodium 116 mmol/L (136-145)
--- NOTE | 2024-12-09 22:57 | PC.NURSE ---
Sodium results reported to Dr. Ignacio x2. Following, spoke with her directly and requested that if sodium goes above 118 to call her directly, but not needed as long as results 118 or below.
--- NOTE | 2024-12-09 23:12 | ECG_ITS ---
[facility] Date: 2024-12-09 Pat Name: Korin Ryan Department: Room: ICU10 Gender: Female Hog Trader: : 1945 Requested By: Noé Hernandez Order Number: [id number] Darryl MD: Radha Lucero M.D. Measurements Intervals [place] Rate: 84 P: 51 MN: 108 QRS: 30 QRSD: 102 T: 60 QT: 369 QTc: 439 Interpretive Statements SINUS RHYTHM WITH SHORT [place] INTERVAL NONSPECIFIC T-WAVE ABNORMALITY Compared to ECG 12/09/2024 20:10:35 Sinus arrhythmia no longer present T-wave abnormality still present Electronically Signed On 12-11-2024 22:34:33 PATIENT REGISTRATION MANAGER by Radha Lucero M.D. [id number]
[2024-12-10] VITALS (33 sets, daily range): BP systolic 103–158; BP diastolic 52–110; PULSE 70–114; RESP 16–28; O2SAT 83–96
[2024-12-10 00:07] LABS: Troponin 5 6HR 17.16 ng/L (0-10); Troponin 5 6HR Delta 1.16 ng/L (0-12)
[2024-12-10 01:05] LABS: Sodium 116 mmol/L (136-145)
[2024-12-10] MEDS: cefepime 2,000 mg SDV 2000 MG IVP ×3 (01:30→21:14)
[2024-12-10 02:25] LABS: NT Pro B Type Natriuretic Pept 2491 pg/mL (0-450)
[2024-12-10 02:29] LABS: Sodium 116 mmol/L (136-145)
[2024-12-10 03:58] LABS: Hematocrit 29.5 % (36-47); Hemoglobin 9.90 g/dL (11.27-16.99); Mean Corpuscular HGB Conc 33.6 g/dL (30-55); Mean Corpuscular Hemoglobin 29.3 pg (27-33); Mean Corpuscular Volume 87.3 fl (85-98); Nucleated Red Blood Cells % 0 %; Platelet Count 372 10^3/cmm (157-399); Red Blood Count 3.38 10^6/uL (3.85-5.65); White Blood Count 23.97 10^3/uL (3.29-11.43)
[2024-12-10 04:20] LABS: Alanine Aminotransferase 39 U/L (0-33); Albumin Level 2.9 g/dL (3.5-5.2); Alkaline Phosphatase 102 U/L (35-105); Anion Gap 16.5 (5-19); Aspartate Amino Transferase 68 U/L (0-32); Blood Urea Nitrogen 11 mg/dL (8-23); Calcium 8.6 mg/dL (8.5-10.5); Carbon Dioxide 19 mmol/L (22-29); Chloride 87 mmol/L (98-107); Globulin 2.6 g/dL (1.3-4.6); Glucose 160 mg/dL (65-115); Magnesium 2.0 mg/dL (1.7-2.3); Osmolality Calculated 249 mOsm/kg (285-295); Potassium 4.5 mmol/L (3.5-5.1); Total Protein 5.5 g/dL (6.6-8.7)
[2024-12-10 04:23] LABS: Sodium 118 mmol/L (136-145)
[2024-12-10 04:53] LABS: INR 1.08 (0.8-1.2); Prothrombin Time 14.70 SECONDS (12.1-14.9)
[2024-12-10 04:56] LABS: Partial Thromboplastin Time 35.3 SECONDS (23.9-36.7)
[2024-12-10] MEDS: methylPREDNISolone sod succ 40 mg/mL INJ IVP ×3 (05:16→21:14)
--- NOTE | 2024-12-10 08:40 | P.PN_ITS ---
Subjective 2 Subjective: feels better Medications: Reviewed: Yes Vitals/I&O/Wt Last Vital Signs Temp 98.3 F 12/09/24 20:00 Pulse 109 H 12/10/24 11:26 Resp 19 H 12/10/24 11:15 BP 147/61 12/10/24 10:00 Pulse Ox 90 12/10/24 11:15 O2 Del Method Nasal Cannula 12/10/24 11:15 O2 Flow Rate 3 12/10/24 11:15 12/09/24 12/10/24 12/10/24 22:59 06:59 14:59 Intake Total 1092.6 / 1092.6 490 / 1582.6 120 / 120 Output Total 220 / 220 1050 / 1270 Balance 872.6 / 872.6 -560 / 312.6 120 / 120 Weight last 48 hrs Weight 54.885 kg Weight 55.474 kg Weight 54.431 kg Physical Exam 2 Narrative: awake , alert , no distress on O2 via face mask No JVD PEERLA S1S2 RRR lungs with decreased BS rick Ext no edema No skin rash Urinary Catheter Management: Chi Latex: Cath Placed During This Visit: yes Reason for Continuing Indwelling Catheter: Accurate Measurement of Urinary Output in Critically Ill Patients Urinary Catheter Date of Insertion: 12/09/24 Urinary Catheter Time of Insertion: 20:45 Data 12/10/24 03:38 12/10/24 08:58 Micro: Microbiology 12/09/24 22:45 Gram Stain - Final Sputum - Expectorated Sputum 12/09/24 14:58 Blood Culture - Preliminary Blood SPECIMEN COLLECTED 12/09/24 14:56 Blood Culture - Preliminary Blood SPECIMEN COLLECTED A&P Assessment and plan 1. Hyponatremia: 1. Acute on chromic Hyponatremia : Chronic Hyponatremia likely SSRI induced. Acute drop in Na likely from poor oral intake in the setting of acute infection, sepsis. Na 112 on presentation - Check sodium q 2 hours , awaiting next Na level , - Low U na c/w hypovolemia -Goal correction - upto 6- 8 mEQ in 24 hours - check TSH and Cortisol levels 2. Acute resp failure sec to pneumonia 3. metabolic encephalopathy 4. Metabolic acidosis , mild , monitor pt evaluated using audiovisualc art. Tiem spent 40 min Plan: per mediicne PDMP PDMP Reviewed: Not Reviewed Attestations 2 Medical Necessity Statement*: per medicine Coding Level of Care Code Acute Code for Chg Fwd Diagnoses Hyponatremia E87.1
[2024-12-10 09:49] LABS: Sodium 121 mmol/L (136-145)
[2024-12-10 12:26] LABS: Sodium 118 mmol/L (136-145)
[2024-12-10 13:18] LABS: Sodium 121 mmol/L (136-145)
--- NOTE | 2024-12-10 14:38 | P.PN_ITS ---
Subjective 2 Subjective: Patient was seen this morning, currently alert oriented x 3, following commands, no headache, no blurry vision, no nausea, no vomiting Vitals/I&O/Wt Last Vital Signs Temp 98.3 F 12/09/24 20:00 Pulse 113 H 12/10/24 14:00 Resp 20 H 12/10/24 14:00 BP 157/72 12/10/24 14:00 Pulse Ox 91 12/10/24 14:00 O2 Del Method Nasal Cannula 12/10/24 11:15 O2 Flow Rate 3 12/10/24 11:15 12/09/24 12/10/24 12/10/24 22:59 06:59 14:59 Intake Total 1092.6 / 1092.6 490 / 1582.6 240 / 240 Output Total 220 / 220 1050 / 1270 Balance 872.6 / 872.6 -560 / 312.6 240 / 240 Weight last 48 hrs Weight 54.885 kg Weight 55.474 kg Weight 54.431 kg Physical Exam 2 Const: COMMON NORMALS: no acute distress and patient oriented x3 Resp: COMMON NORMALS: normal respiratory effort, No retractions, No use of accessory muscles and clear to auscultation bilaterally AUSCULTATION: clear to auscultation bilaterally Cardio: COMMON NORMALS: regular rate, regular rhythm, S1 normal heart sound present and S2 normal heart sound present RATE: regular rate RHYTHM: r egular rhythm HEART SOUNDS: S1 normal heart sound present and S2 normal heart sound present GI: COMMON NORMALS: Normal to inspection, nondistended, normoactive bowel sounds present and non-tender Extremity: COMMON NORMALS: no calf tenderness and no pedal edema Neuro: COMMON NORMALS: patient oriented x3 Psych: COMMON NORMALS: mental status grossly normal Urinary Catheter Management: Chi Latex: Cath Placed During This Visit: yes Reason for Continuing Indwelling Catheter: Accurate Measurement of Urinary Output in Critically Ill Patients Urinary Catheter Date of Insertion: 12/09/24 Urinary Catheter Time of Insertion: 20:45 Data 12/10/24 03:38 12/10/24 12:47 Micro: Microbiology 12/09/24 22:45 Gram Stain - Final Sputum - Expectorated Sputum 12/09/24 14:58 Blood Culture - Preliminary Blood SPECIMEN COLLECTED 12/09/24 14:56 Blood Culture - Preliminary Blood SPECIMEN COLLECTED A&P Assessment and plan 1. Hypertension: 2. Bilateral pneumonia: 3. Acute respiratory failure with hypoxia: Plan: Acute hypoxic respiratory failure Bilateral pneumonia COPD exacerbation CT/CT angio chest PE protcl [id number] IMPRESSION: 1. No evidence for pulmonary embolism. 2. Bilateral lower lobe consolidation, most consistent with pneumonia. 3. Marked carotid bulb calcification is partially imaged bilaterally. 4. Mild T11 compression fracture of indeterminate age. 5. Severe centrilobular bullous disease, primarily in the upper lobes. Plan -Secondary to bilateral lower lobe pneumonia -Broaden antibiotic coverage to vancomycin, cefepime -Solu-Medrol 40 mg IV every 8 hours -Sputum culture -Blood culture -DuoNeb -Budesonide -Full code -Lovenox for DVT prophylaxis Transaminitis Sepsis secondary to bilateral pneumonia, acute hypoxic respiratory failure Acute encephalopathy, metabolic -Secondary sepsis, hypoxia, pneumonia, hyponatremia -Monitor mentation closely Acute on chronic hyponatremia -Baseline sodium is 128-130 - Serum 121 -Has been received sepsis bolus in the emergency room -Recheck serum sodium every 2 hours -Nephrology consulted, will consider hypertonic saline -Seizure precautions, neurochecks Full code Lovenox for DVT prophylaxis PDMP PDMP Reviewed: Not Reviewed Attestations 2 Medical Necessity Statement*: Patient requires hospitalization for acute hypoxic respiratory failure,hyponatremia Diagnoses Hypertension I10 Bilateral pneumonia J18.9 Acute respiratory failure with hypoxia J96.01
[2024-12-10 15:15] LABS: Sodium 120 mmol/L (136-145)
--- NOTE | 2024-12-10 15:39 | PHA.VACGOAL ---
Vancomycin Goal - Goal Vancomycin Goal:: 15-20 mg/L Vancomycin Indication:: Pneumonia - Therapy Current therapy:: Cefepime Day of therpy:: Day []of [] . Actual body weight (kg): 54.885 kg - Data Labs: WBC 23.97 10^3/uL (3.29-11.43) H 12/10/24 03:38 RBC 3.38 10^6/uL (3.85-5.65) L 12/10/24 03:38 Hgb 9.90 g/dL (11.27-16.99) L 12/10/24 03:38 Hct 29.5 % (36-47) L 12/10/24 03:38 MCV 87.3 fl (85-98) 12/10/24 03:38 MCH 29.3 pg (27-33) 12/10/24 03:38 MCHC 33.6 g/dL (30-55) D 12/10/24 03:38 RDW 14.3 % (12.1-15.1) 12/10/24 03:38 Sodium 120 mmol/L (136-145) L 12/10/24 14:39 Potassium 4.5 mmol/L (3.5-5.1) 12/10/24 03:38 Chloride 87 mmol/L (98-107) L 12/10/24 03:38 Carbon Dioxide 19 mmol/L (22-29) L 12/10/24 03:38 Anion Gap 16.5 (5-19) 12/10/24 03:38 BUN 11 mg/dL (8-23) 12/10/24 03:38 Creatinine 0.6 mg/dL (0.5-0.9) 12/10/24 03:38 GFR Calculation Not Reportable 12/10/24 03:38 Treatment plan:: new consult Regimen:: New start vancomycin for Pneumonia. No prior vancomycin history found. Started on maintenance dose of 750 mg q12h. WBC down to 23.97. Scr stable @0.6 mg/dL. Vancomycin trough timed prior to 4th maintenance dose @0500 12/11/24. Laboratory Tests 12/09/24 12/09/24 12/10/24 14:01 14:56 03:38 WBC 44.17 H* 23.97 H Creatinine 0.6 0.6
[2024-12-10 17:26] LABS: Sodium 120 mmol/L (136-145)
[2024-12-10] MEDS: pantoprazole 40 mg SDV IVP (17:28)
[2024-12-10 19:38] LABS: Sodium 121 mmol/L (136-145)
[2024-12-10 21:59] LABS: Sodium 125 mmol/L (136-145)
[2024-12-10 23:44] LABS: Sodium 124 mmol/L (136-145)
[2024-12-11] VITALS (30 sets, daily range): BP systolic 145–171; BP diastolic 69–98; PULSE 93–114; RESP 19–32; TEMP 36.4–36.6; O2SAT 87–94
[2024-12-11 01:26] LABS: Sodium 125 mmol/L (136-145)
[2024-12-11] MEDS: methylPREDNISolone sod succ 40 mg/mL INJ IVP ×2 (05:23→14:29)
[2024-12-11 05:59] LABS: Hematocrit 32.2 % (36-47); Hemoglobin 11.20 g/dL (11.27-16.99); Mean Corpuscular HGB Conc 34.8 g/dL (30-55); Mean Corpuscular Hemoglobin 29.3 pg (27-33); Mean Corpuscular Volume 84.3 fl (85-98); Nucleated Red Blood Cells % 0.1 %; Platelet Count 517 10^3/cmm (157-399); Red Blood Count 3.82 10^6/uL (3.85-5.65)
[2024-12-11 06:06] LABS: INR 0.93 (0.8-1.2); Prothrombin Time 13.20 SECONDS (12.1-14.9)
[2024-12-11 06:07] LABS: Partial Thromboplastin Time 27.4 SECONDS (23.9-36.7)
[2024-12-11 06:20] LABS: Alanine Aminotransferase 84 U/L (0-33); Albumin Level 3.2 g/dL (3.5-5.2); Alkaline Phosphatase 128 U/L (35-105); Aspartate Amino Transferase 131 U/L (0-32); Blood Urea Nitrogen 12 mg/dL (8-23); Calcium 9.5 mg/dL (8.5-10.5); Carbon Dioxide 20 mmol/L (22-29); Chloride 95 mmol/L (98-107); Globulin 3.0 g/dL (1.3-4.6); Glucose 154 mg/dL (65-115); Magnesium 2.3 mg/dL (1.7-2.3); Osmolality Calculated 271 mOsm/kg (285-295); Sodium 129 mmol/L (136-145); Total Protein 6.2 g/dL (6.6-8.7)
[2024-12-11 06:22] LABS: Anion Gap 18.1 (5-19); Potassium 4.1 mmol/L (3.5-5.1)
[2024-12-11 06:31] LABS: White Blood Count 35.21 10^3/uL (3.29-11.43)
--- NOTE | 2024-12-11 08:01 | CT_ITS ---
WS: [id number] CT ABDOMEN PELVIS TECHNIQUE: Noncontrast CT of the abdomen and pelvis with coronal and sagittal reformatted images. CLINICAL INFORMATION: leukocytosis, transmintis COMPARISON: None. DLP: 369.[address] scans at [facility] [place] use at least one of these dose optimization techniques: automated exposure control; mA and/or kV adjustment per patient size (includes targeted exams where dose is matched to clinical indication); or iterative reconstruction. FINDINGS: Tiny bilateral pleural effusions with compressive atelectasis in the lung bases. Subsegmental atelectasis LEFT lower lobe with air bronchograms. Cholelithiasis. Normal noncontrast liver. Atrophic spleen. Splenic artery calcification. Diffuse body wall anasarca. Small esophageal hiatal hernia. Dense vascular calcification. Osteopenia. Chi catheter. Atrophic RIGHT kidney. Adrenal glands are normal. No hydronephrosis in the LEFT kidney. Fatty atrophy of the pancreas. Air distended loops of predominantly small bowel in the pelvis and anterior abdomen may be due to adynamic ileus. RIGHT colon and proximal transverse colon constipation. Sigmoid diverticulosis. LEFT colon is decompressed. CT/CT abdomen pelvis wo con [id number] IMPRESSION: 1. Tiny bilateral pleural effusions with subsegmental ectasis in the lung base s. 2. Cholelithiasis. 3. Air distended loops of predominantly small bowel in the pelvis and anterior abdomen may be due to adynamic ileus. Early obstruction not excluded. Recommen d interval follow-up. 4. Constipation in the cecum and RIGHT colon. LEFT colon is decompressed. 5. Sigmoid diverticulosis. 6. Dense vascular calcification. 7. Atrophic RIGHT kidney. 8. Diffuse body wall anasarca
[2024-12-11] MEDS: cefepime 2,000 mg SDV 2000 MG IVP ×2 (08:27→20:41)
[2024-12-11 08:35] LABS: Sodium 128 mmol/L (136-145)
--- NOTE | 2024-12-11 09:17 | P.PN_ITS ---
Subjective 2 Subjective: No new c/o Medications: Reviewed: Yes Vitals/I&O/Wt Last Vital Signs Temp 97.8 F 12/11/24 08:00 Pulse 110 H 12/11/24 08:00 Resp 24 H 12/11/24 08:00 BP 167/79 12/11/24 08:00 Pulse Ox 92 12/11/24 08:00 O2 Del Method Nasal Cannula 12/11/24 08:00 O2 Flow Rate 2 12/11/24 08:00 12/10/24 12/11/24 12/11/24 22:59 06:59 14:59 Intake Total 600 / 840 490 / 1330 250 / 250 Output Total 1850 / 1850 2000 / 3850 Balance -1250 / -1010 -1510 / -2520 250 / 250 Weight last 48 hrs Weight 54.431 kg Weight 54.885 kg Weight 55.474 kg Weight 54.431 kg Physical Exam 2 Narrative: awake , alert , no distress on O2 via face mask No JVD PEERLA S1S2 RRR lungs with decreased BS rick Ext no edema No skin rash Urinary Catheter Management: Chi Latex: Cath Placed During This Visit: yes Reason for Continuing Indwelling Catheter: Accurate Measurement of Urinary Output in Critically Ill Patients Urinary Catheter Date of Insertion: 12/09/24 Urinary Catheter Time of Insertion: 20:45 Data 12/11/24 05:07 12/11/24 07:53 Micro: Microbiology 12/09/24 14:58 Blood Culture - Preliminary Blood NEGATIVE TO DATE 12/09/24 14:56 Blood Culture - Preliminary Blood NEGATIVE TO DATE 12/09/24 22:45 Gram Stain - Final Sputum - Expectorated Sputum A&P Assessment and plan 1. Hyponatremia: 1. Acute on chromic Hyponatremia : Chronic Hyponatremia likely SSRI induced. Acute drop in Na likely from poor oral intake in the setting of acute infection, sepsis. Na 112 on presentation - Na 128 currently - Low U na c/w hypovolemia , Urine osmolality pending -Goal correction - upto 8 mEQ in 24 hours - check TSH and Cortisol levels 2. Acute resp failure sec to pneumonia 3. metabolic encephalopathy 4. Metabolic acidosis , mild , monitor pt evaluated using audiovisualc art. Tiem spent 40 min Plan: per mediicne PDMP PDMP Reviewed: Not Reviewed Attestations 2 Medical Necessity Statement*: per medicine Coding Level of Care Code Acute Code for Chg Fwd Diagnoses Hyponatremia E87.1
[2024-12-11] MEDS: polyethylene glycol 3350 Pkt 17 gm PO (10:43)
--- NOTE | 2024-12-11 12:57 | ECG_ITS ---
[facility]: [facility]11 Pat Name: Korin Ryan Department: Room: ICU10 Gender: Female Physician Obstetrician: : 1945 Requested By: Noé Hernandez Order Number: [id number] Darryl MD: Radha Lucero M.D. Measurements Intervals [place] Rate: 110 P: 66 AL: 118 QRS: 25 QRSD: 90 T: 0 QT: 293 QTc: 397 Interpretive Statements SINUS TACHYCARDIA WITH SHORT AL INTERVAL LEFT VENTRICULAR HYPERTROPHY AND ST-T CHANGE [VOLTAGE CRITERIA PLUS ST/T ABNORMALITY] Compared to ECG 12/09/2024 23:24:38 Left ventricular hypertrophy now present ST (T wave) deviation now present Sinus rhythm no longer present T-wave abnormality no longer present Electronically Signed On 12-11-2024 22:17:38 CAMPUS REP by Radha Lucero M.D. [id number]
[2024-12-11 14:50] LABS: Sodium 125 mmol/L (136-145)
--- NOTE | 2024-12-11 15:47 | P.PN_ITS ---
Subjective 2 Subjective: Patient was seen this morning, currently alert to person, to place, to time, she follows all commands, she is passing gas from below, has not had a bowel movement, no abdominal pain, no nausea, no vomiting, denies any fevers, no chills Vitals/I&O/Wt Last Vital Signs Temp 97.8 F 12/11/24 08:00 Pulse 107 H 12/11/24 15:10 Resp 20 H 12/11/24 15:00 BP 171/83 12/11/24 12:00 Pulse Ox 93 12/11/24 15:00 O2 Del Method Nasal Cannula 12/11/24 15:00 O2 Flow Rate 2 12/11/24 15:00 12/11/24 12/11/24 12/11/24 06:59 14:59 22:59 Intake Total 490 / 1330 490 / 490 Output Total 1999 / 3850 Balance -1510 / -2520 490 / 490 Weight last 48 hrs Weight 54.431 kg Weight 54.885 kg Weight 55.474 kg Physical Exam 2 Const: COMMON NORMALS: no acute distress and patient oriented x3 Eye: COMMON NORMALS: Equal, round and reactive pupils present and EOMs intact bilaterally PUPIL: Yes Equal, round and reactive pupils present Resp: COMMON NORMALS: normal respiratory effort, No retractions, No use of accessory muscles and clear to auscultation bilaterally AUSCULTATION: clear to auscultation bilaterally Cardio: COMMON NORMALS: regular rate, regular rhythm, S1 normal heart sound present and S2 normal heart sound present RATE: regular rate RHYTHM: r egular rhythm HEART SOUNDS: S1 normal heart sound present and S2 normal heart sound present GI: COMMON NORMALS: Normal to inspection, nondistended, normoactive bowel sounds present and non-tender Extremity: COMMON NORMALS: no pedal edema Neuro: COMMON NORMALS: patient oriented x3 Psych: COMMON NORMALS: mental status grossly normal Urinary Catheter Management: Chi Latex: Cath Placed During This Visit: yes Reason for Continuing Indwelling Catheter: Accurate Measurement of Urinary Output in Critically Ill Patients Urinary Catheter Date of Insertion: 12/09/24 Urinary Catheter Time of Insertion: 20:45 Data 12/11/24 05:07 12/11/24 14:01 Micro: Microbiology 12/09/24 22:45 Gram Stain - Final Sputum - Expectorated Sputum Sputum Culture - Preliminary Yeast species 12/09/24 14:58 Blood Culture - Preliminary Blood NEGATIVE TO DATE 12/09/24 14:56 Blood Culture - Preliminary Blood NEGATIVE TO DATE A&P Assessment and plan 1. Hypertension: 2. Bilateral pneumonia: 3. Acute respiratory failure with hypoxia: Plan: Acute hypoxic respiratory failure Bilateral pneumonia COPD exacerbation CT/CT angio chest PE protcl [id number] IMPRESSION: 1. No evidence for pulmonary embolism. 2. Bilateral lower lobe consolidation, most consistent with pneumonia. 3. Marked carotid bulb calcification is partially imaged bilaterally. 4. Mild T11 compression fracture of indeterminate age. 5. Severe centrilobular bullous disease, primarily in the upper lobes. Plan -Secondary to bilateral lower lobe pneumonia -Broaden antibiotic coverage to vancomycin, cefepime - De-escalate to prednisone 40 mg daily -Sputum culture -Blood culture -DuoNeb -Budesonide -Full code -Lovenox for DVT prophylaxis Transaminitis, CT scan abdomen pelvis Sepsis secondary to bilateral pneumonia, acute hypoxic respiratory failure Acute encephalopathy, metabolic, resolving -Secondary sepsis, hypoxia, pneumonia, hyponatremia -Monitor mentation closely Acute on chronic hyponatremia -Baseline sodium is 128-130 - Serum 128 -Has been received sepsis bolus in the emergency room - Monitor serum sodium -Nephrology consulted, will consider hypertonic saline -Seizure precautions, neurochecks Full code Lovenox for DVT prophylaxis PDMP PDMP Reviewed: Not Reviewed Attestations 2 Medical Necessity Statement*: Patient requires hospitalization for acute hypoxic respiratory failure Diagnoses Hypertension I10 Bilateral pneumonia J18.9 Acute respiratory failure with hypoxia J96.01
[2024-12-11] MEDS: pantoprazole 40 mg SDV IVP (17:11)
[2024-12-11] MEDS: lactulose oral liq 20 gm/30 mL UDC PO (17:11)
[2024-12-11 20:34] LABS: Sodium 127 mmol/L (136-145)
[2024-12-12] VITALS (74 sets, daily range): BP systolic 136–188; BP diastolic 62–108; PULSE 79–124; RESP 16–40; TEMP 36.6–36.7; O2SAT 72–95
[2024-12-12 02:49] LABS: Hematocrit 34.0 % (36-47); Hemoglobin 11.80 g/dL (11.27-16.99); Mean Corpuscular HGB Conc 34.7 g/dL (30-55); Mean Corpuscular Hemoglobin 29.9 pg (27-33); Mean Corpuscular Volume 86.3 fl (85-98); Nucleated Red Blood Cells % 0.2 %; Platelet Count 527 10^3/cmm (157-399); Red Blood Count 3.94 10^6/uL (3.85-5.65); White Blood Count 29.50 10^3/uL (3.29-11.43)
[2024-12-12 03:05] LABS: Alanine Aminotransferase 80 U/L (0-33); Albumin Level 3.0 g/dL (3.5-5.2); Alkaline Phosphatase 114 U/L (35-105); Anion Gap 14.7 (5-19); Aspartate Amino Transferase 96 U/L (0-32); Blood Urea Nitrogen 14 mg/dL (8-23); Calcium 9.2 mg/dL (8.5-10.5); Carbon Dioxide 23 mmol/L (22-29); Chloride 96 mmol/L (98-107); Globulin 3.6 g/dL (1.3-4.6); Glucose 166 mg/dL (65-115); Magnesium 2.0 mg/dL (1.7-2.3); Osmolality Calculated 274 mOsm/kg (285-295); Potassium 3.7 mmol/L (3.5-5.1); Sodium 130 mmol/L (136-145); Total Protein 6.6 g/dL (6.6-8.7)
[2024-12-12 05:19] LABS: INR 0.96 (0.8-1.2); Prothrombin Time 13.50 SECONDS (12.1-14.9)
[2024-12-12 05:20] LABS: Partial Thromboplastin Time 29.1 SECONDS (23.9-36.7)
[2024-12-12] MEDS: polyethylene glycol 3350 Pkt 17 gm PO ×2 (05:31)
--- NOTE | 2024-12-12 07:01 | PC.NURSE ---
Pt transferred to [facility], stated she needed to have a bowel movement. Called for assistance and had small amount of sadie red blood on her hand and wipe. Pt had golf ball sized protrusion coming from rectum that had minimal amount of bleeding and irritation. Assisted back to bed, small amount of pressure applied to protrusion and it went back into rectum.
[2024-12-12] MEDS: cefepime 2,000 mg SDV 2000 MG IVP ×2 (07:49→20:31)
--- NOTE | 2024-12-12 07:59 | XR_ITS ---
WS: [id number] KUB, AP view, 12/12/2024 Clinical Data: distention Comparison: CT abdomen pelvis, 12/11/2024 Findings: No abnormal intraabdominal masses or calcifications are seen. There is air in the small bowel and the colon. 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 Monitor leads are on the chest wall. XR/XR KUB portable [id number] Impression: Moderate generalized ileus.
--- NOTE | 2024-12-12 08:15 | XR_ITS ---
WS: [id number] Portable AP upright chest, 12/12/2024 Clinical Data: sob Comparison: Portable chest, 12/09/2024 Findings: There are patchy bilateral lower lobe opacities. There are bilateral pleural effusions. The diaphragms are flattened. The pulmonary vascularity is not increased. The heart is minimally enlarged. No nodules or masses are seen. There is no pneumothorax. The aortic arch and descending thoracic aorta show calcification and tortuosity. Monitor leads are on the chest wall. There is a dextroscoliosis of the lower thoracic spine. XR/XR chest 1V portable [id number] Impression: 1. Patchy bilateral lower lobe opacities which could represent pneumonia and/or atelectasis. 2. Cardiomegaly and hyperinflation. 3. Atherosclerosis.
--- NOTE | 2024-12-12 08:19 | ECG_ITS ---
[facility]: 2024-12[facility]12 Pat Name: Korin Ryan Department: Room: ICU10 Gender: Female Antenna Installer: : [id number] Requested By: Noé Hernandez Order Number: [id number] Darryl MD: Radha Lucero M.D. Measurements Intervals [place] Rate: 121 P: 0 MI: 0 QRS: 23 QRSD: 89 T: 164 QT: 260 QTc: 369 Interpretive Statements ATRIAL FIBRILLATION WITH RAPID VENTRICULAR RESPONSE NONSPECIFIC ST & T-WAVE ABNORMALITY Compared to ECG 12/11/2024 12:57:55 T-wave abnormality now present Sinus tachycardia no longer present Short MI interval no longer present Left ventricular hypertrophy no longer present ST (T wave) deviation no longer present Electronically Signed On 12-12-2024 23:54:23 TURBOGENERATOR OPERATOR by Radha Lucero M.D. [email or web address] [id number]
[2024-12-12] MEDS: DILTIAZEM HCL/D5W 125 MG/125 ML BAG IV (08:35)
[2024-12-12 09:17] LABS: NT Pro B Type Natriuretic Pept 3404 pg/mL (0-450)
--- NOTE | 2024-12-12 09:53 | PM.PN ---
Subjective Subjective: The patient is using nasal cannula oxygen is short of breath and has abdominal pain. Blood pressure is elevated. The patient is on a diltiazem drip for hypertension and atrial fibrillation with rapid ventricular response. Medications: Reviewed: Yes Medication Review Details: Current Medications Acetaminophen (Acetaminophen 325 Mg Tablet) 650 mg PO Q6H PRN PRN Reason: Mild/Mod Pain Or Temp >/= 101 Albuterol/Ipratropium (Ipratropium-Albuterol 3 Ml Neb) 3 ml INHALATION Q4H.RESPIRATORY AALIYAH Last Admin: 12/12/24 08:04 Dose: 3 ml Aspirin (Aspirin 81 Mg Ec Tablet) 81 mg PO DAILY AALIYAH Last Admin: 12/12/24 05:31 Dose: 81 mg Atorvastatin Calcium (Atorvastatin 40 Mg Tablet) 80 mg PO DAILY AALIYAH Last Admin: 12/12/24 05:31 Dose: 80 mg Bisacodyl (Bisacodyl 5 Mg Tablet) 10 mg PO DAILY AALIYAH Last Admin: 12/12/24 05:31 Dose: 10 mg Budesonide (Budesonide 0.5 Mg/2 Ml Neb) 0.5 mg INHALATION BID.RESPIRATORY AALIYAH Last Admin: 12/12/24 08:04 Dose: 0.5 mg Camphor/Menthol/Phenol (Blistex Lip Oint 7 Gm Tube) 1 applic TOPICAL PRN PRN PRN Reason: DRYNESS Cefepime HCl (Cefepime 2,000 Mg Sdv) 2,000 mg IVP Q12H [facility]; Protocol Last Admin: 12/12/24 07:49 Dose: 2,000 mg Enoxaparin Sodium (Enoxaparin 60 Mg/0.6 Ml Syringe) 50 mg SUBCUT Q12H AALIYAH Last Admin: 12/12/24 08:42 Dose: 50 mg Vancomycin HCl 750 mg/ Sodium (Chloride) 250 mls @ 250 mls/hr IV Q12H AALIYAH Last Infusion: 12/12/24 08:02 Dose: Infused DILTIAZEM HCL/D5W (Cardizem) 125 mg in 125 mls @ 0 mls/hr IV .Q0M [facility]; Protocol Last Admin: 12/12/24 08:35 Dose: 5 mg/hr, 5 mls/hr Isosorbide Mononitrate (Isosorbide Mononitrate Er 30 Mg Tablet) 30 mg PO DAILY AALIYAH Last Admin: 12/12/24 08:40 Dose: 30 mg Lanolin (Lanolin Oint 7 Gm) 1 applic TOPICAL PRN PRN PRN Reason: DRYNESS Last Admin: 12/10/24 19:03 Dose: 1 applic Lisinopril (Lisinopril 20 Mg Tablet) 40 mg PO DAILY [facility] Last Admin: 12/12/24 05:31 Dose: 40 mg Lorazepam (Lorazepam 0.5 Mg Tablet) 0.5 mg PO BID PRN PRN Reason: ANXIETY Morphine Sulfate (Morphine 4 Mg/Ml Sdv 1 Ml) 2 mg IVP Q4H PRN PRN Reason: SEVERE PAIN Naloxone HCl (Naloxone 0.4 Mg/Ml Sdv) 0.1 mg IVP Q2M PRN PRN Reason: OPIATERV Ondansetron HCl (Ondansetron 2 Mg/Ml Sdv 2 Ml) 4 mg IVP Q8H PRN PRN Reason: vomiting, or N/V if npo Pantoprazole Sodium (Pantoprazole 40 Mg Sdv) 40 mg IVP Q24H [facility] Last Admin: 12/11/24 17:11 Dose: 40 mg Polyethylene Glycol (Polyethylene Glycol 3350 Pkt 17 Gm) 17 gm PO DAILY [facility] Last Admin: 12/12/24 05:31 Dose: 17 gm Prednisone (Prednisone 20 Mg Tablet) 40 mg PO DAILY [facility] Last Admin: 12/12/24 05:31 Dose: 40 mg Tramadol HCl (Tramadol 50 Mg Tablet) 100 mg PO TID PRN PRN Reason: PAIN Last Admin: 12/12/24 07:48 Dose: 100 mg Vitals/I&O/Wt Last Vital Signs Temp 97.9 F 12/12/24 08:00 Pulse 104 H 12/12/24 08:00 Resp 27 H 12/12/24 08:00 BP 172/100 12/12/24 08:00 Pulse Ox 88 L 12/12/24 08:00 O2 Del Method Nasal Cannula 12/12/24 08:00 O2 Flow Rate 2 12/12/24 08:00 12/11/24 12/12/24 12/12/24 22:59 06:59 14:59 Intake Total 970 / 1460 360 / 1820 250 / 250 Output Total 1200 / 1200 1650 / 2850 Balance -230 / 260 -1290 / -1030 250 / 250 Weight last 48 hrs Weight 48.988 kg Weight 54.431 kg Physical Exam Narrative: Patient is in bed using nasal cannula oxygen. She is uncomfortable. Vital signs noted. Heart rates irregular. HEENT normocephalic atraumatic Neck is supple no JVP. Lungs are tight with movement of air some wheezes no crackles no rales. Heart irregular irregular. Abdomen is distended and tender high-pitched limited bowel sounds. Extremities no edema neuro awake alert oriented x 3 Urinary Catheter Management: Chi Latex: Cath Placed During This Visit: yes Reason for Continuing Indwelling Catheter: Accurate Measurement of Urinary Output in Critically Ill Patients Urinary Catheter Date of Insertion: 12/09/24 Urinary Catheter Time of Insertion: 20:45 Data 12/12/24 02:35 12/12/24 02:35 Micro: Microbiology 12/09/24 22:45 Gram Stain - Final Sputum - Expectorated Sputum Sputum Culture - Preliminary Yeast species A&P Assessment and plan 1. Hyponatremia: 79-year-old lady with hypertension pneumonia and acute on chronic hyponatremia. Per chart the patient has some chronic hyponatremia which is felt to be SSRI induced. The patient had a sodium of 112 on presentation which was felt to be due to infection and poor intake with a low urine sodium. At this time we will repeat urine electrolytes. Patient is short of breath treat COPD may need diuretics however try to stabilize heart rate which can improve cardiac output. Hypertension on lisinopril and diltiazem. Please avoid hydrochlorothiazide in this lady with hyponatremia. Can use hydralazine if needed. Please avoid beta-blockers due to COPD. The patient was seen and examined using telehealth. The patient consented to telehealth. Exam with audiovisual equipment and the aid of a nurse. Plan: See above. PDMP PDMP Reviewed: Not Reviewed Attestations Medical Necessity Statement*: As per medical team. Pneumonia, COPD, shortness of breath, hypertension, A-fib with RVR. Time Spent in Patient Care: Greater than 35 minutes (>than 50% of time spent in counselling and/or direct pt care on unit). Coding Level of Care Code Acute Code for [facility] Diagnoses Hyponatremia E87.1
--- NOTE | 2024-12-12 10:35 | PC.NURSE ---
Dr. Hernandez rounding discussing POC, received orders for complete echo and Mucinex, orders placed, see MAR.
--- NOTE | 2024-12-12 12:24 | P.PN_ITS ---
Subjective 2 Subjective: Patient was seen this morning, currently alert oriented x 3, following all commands, does report shortness of breath, tachycardia, A-fib with RVR, on amiodarone drip, no lightheadedness, no dizziness Vitals/I&O/Wt Last Vital Signs Temp 97.9 F 12/12/24 08:00 Pulse 101 H 12/12/24 11:54 Resp 18 12/12/24 11:54 BP 161/97 12/12/24 10:30 Pulse Ox 95 12/12/24 11:54 O2 Del Method Nasal Cannula 12/12/24 11:54 O2 Flow Rate 2 12/12/24 11:54 12/11/24 12/12/24 12/12/24 22:59 06:59 14:59 Intake Total 970 / 1460 360 / 1820 610 / 610 Output Total 1200 / 1200 1650 / 2850 550 / 550 Balance -230 / 260 -1290 / -1030 60 / 60 Weight last 48 hrs Weight 48.988 kg Weight 54.431 kg Physical Exam 2 Const: COMMON NORMALS: no acute distress and patient oriented x3 Resp: COMMON NORMALS: normal respiratory effort, No retractions, No use of accessory muscles and clear to auscultation bilaterally AUSCULTATION: clear to auscultation bilaterally Cardio: COMMON NORMALS: S1 normal heart sound present and S2 normal heart sound present RATE: tachycardic RHYTHM: abnormal rhythm irregularly irregular HEART SOUNDS: S1 normal heart sound present and S2 normal heart sound present GI: COMMON NORMALS: Normal to inspection, nondistended, normoactive bowel sounds present and non-tender Extremity: COMMON NORMALS: no pedal edema Neuro: COMMON NORMALS: patient oriented x3 Psych: COMMON NORMALS: mental status grossly normal Urinary Catheter Management: Chi Latex: Cath Placed During This Visit: yes Reason for Continuing Indwelling Catheter: Accurate Measurement of Urinary Output in Critically Ill Patients Urinary Catheter Date of Insertion: 12/09/24 Urinary Catheter Time of Insertion: 20:45 Data 12/12/24 02:35 12/12/24 02:35 Micro: Microbiology 12/09/24 22:45 Gram Stain - Final Sputum - Expectorated Sputum Sputum Culture - Preliminary Yeast species A&P Assessment and plan 1. Hypertension: 2. Bilateral pneumonia: 3. Acute respiratory failure with hypoxia: Plan: Acute hypoxic respiratory failure Bilateral pneumonia COPD exacerbation CT/CT angio chest PE protcl [id number] IMPRESSION: 1. No evidence for pulmonary embolism. 2. Bilateral lower lobe consolidation, most consistent with pneumonia. 3. Marked carotid bulb calcification is partially imaged bilaterally. 4. Mild T11 compression fracture of indeterminate age. 5. Severe centrilobular bullous disease, primarily in the upper lobes. Plan -Secondary to bilateral lower lobe pneumonia -Broaden antibiotic coverage to vancomycin, cefepime - De-escalate to prednisone 40 mg daily -Sputum culture -Blood culture -DuoNeb -Budesonide -Full code -Lovenox for DVT prophylaxis Atrial fibrillation with rapid ventricular spots - Cardizem drip - Therapeutic Lovenox Transaminitis, CT scan abdomen pelvis, Ileus - Passing gas from below - She had a bowel movement - MiraLAX, lactulose Sepsis secondary to bilateral pneumonia, acute hypoxic respiratory failure resolved Acute encephalopathy, metabolic, resolving -Secondary sepsis, hypoxia, pneumonia, hyponatremia -Monitor mentation closely Acute on chronic hyponatremia -Baseline sodium is 128-130 - Serum 128 -Has been received sepsis bolus in the emergency room - Monitor serum sodium -Nephrology consulted, will consider hypertonic saline -Seizure precautions, neurochecks Full code Lovenox for DVT prophylaxis PDMP PDMP Reviewed: Not Reviewed Attestations 2 Medical Necessity Statement*: Patient requires hospitalization for acute hypoxic respiratory failure, A-fib with RVR Diagnoses Hypertension I10 Bilateral pneumonia J18.9 Acute respiratory failure with hypoxia J96.01
[2024-12-12] MEDS: FUROsemide 10 mg/mL SDV 4mL 40 MG IVP (13:01)
[2024-12-12] MEDS: lactulose oral liq 20 gm/30 mL UDC PO (13:01)
[2024-12-12 14:12] LABS: Potassium, Radom Urine 25 mmol/L; Urine Random Chloride 37 mmol/L
[2024-12-12 14:13] LABS: Urine Random Sodium 14 mmol/L
--- NOTE | 2024-12-12 15:36 | PC.SOCIAL ---
IMM Updated Updated pt on IMM. No questions voiced. Provided pt a copy. Initialed, dated, & timed a copy & placed in chart.
[2024-12-12] MEDS: pantoprazole 40 mg SDV IVP (17:30)
--- NOTE | 2024-12-12 20:30 | PC.NURSE ---
Called to room by research instrumentation technician, stated pt wanted a nurse present for exam. This nurse entered room and pt stated that the ultrasound was painful and she didn't think she could stand to have the wand pressing on her ribs. Pt ultimately refused to have ultrasound done tonight and stated she would be willing to try it again tomorrow.
--- NOTE | 2024-12-12 23:26 | PC.NURSE ---
This nurse assumed care of patient at this time.
[2024-12-13] VITALS (57 sets, daily range): BP systolic 133–192; BP diastolic 68–105; PULSE 59–108; RESP 16–38; TEMP 36.4–37; O2SAT 86–100
[2024-12-13] MEDS: lactulose oral liq 20 gm/30 mL UDC PO (00:38)
[2024-12-13] MEDS: polyethylene glycol 3350 Pkt 17 gm PO (04:17)
[2024-12-13 06:22] LABS: Hematocrit 37.4 % (36-47); Hemoglobin 13.20 g/dL (11.27-16.99); Mean Corpuscular HGB Conc 35.3 g/dL (30-55); Mean Corpuscular Hemoglobin 29.8 pg (27-33); Mean Corpuscular Volume 84.4 fl (85-98); Nucleated Red Blood Cells % 0.1 %; Platelet Count 563 10^3/cmm (157-399); Red Blood Count 4.43 10^6/uL (3.85-5.65); White Blood Count 27.55 10^3/uL (3.29-11.43)
[2024-12-13 06:47] LABS: Alanine Aminotransferase 69 U/L (0-33); Albumin Level 3.1 g/dL (3.5-5.2); Alkaline Phosphatase 118 U/L (35-105); Blood Urea Nitrogen 15 mg/dL (8-23); Calcium 9.3 mg/dL (8.5-10.5); Carbon Dioxide 27 mmol/L (22-29); Chloride 86 mmol/L (98-107); Globulin 4.0 g/dL (1.3-4.6); Glucose 136 mg/dL (65-115); Magnesium 1.9 mg/dL (1.7-2.3); Osmolality Calculated 267 mOsm/kg (285-295); Sodium 127 mmol/L (136-145); Total Protein 7.1 g/dL (6.6-8.7); Uric Acid 2.2 mg/dL (2.4-5.7)
[2024-12-13 07:01] LABS: Anion Gap 17.2 (5-19); Potassium 3.2 mmol/L (3.5-5.1)
[2024-12-13 07:02] LABS: Aspartate Amino Transferase 54 U/L (0-32)
[2024-12-13] MEDS: cefepime 2,000 mg SDV 2000 MG IVP ×2 (08:13→19:47)
--- NOTE | 2024-12-13 08:55 | P.PN_ITS ---
Subjective 2 Subjective: chronic SOB. No nausea vomiting. No headaches no chest pain. Denies diarrhea she is constipated. Medications: Reviewed: Yes Medication Review Details: Current Medications Acetaminophen (Acetaminophen 325 Mg Tablet) 650 mg PO Q6H PRN PRN Reason: Mild/Mod Pain Or Temp >/= 101 Albuterol/Ipratropium (Ipratropium-Albuterol 3 Ml Neb) 3 ml INHALATION Q4H.RESPIRATORY AALIYAH Last Admin: 12/13/24 08:03 Dose: 3 ml Aspirin (Aspirin 81 Mg Ec Tablet) 81 mg PO DAILY AALIYAH Last Admin: 12/13/24 04:16 Dose: 81 mg Atorvastatin Calcium (Atorvastatin 40 Mg Tablet) 80 mg PO DAILY AALIYAH Last Admin: 12/13/24 04:17 Dose: 80 mg Bisacodyl (Bisacodyl 5 Mg Tablet) 10 mg PO DAILY AALIYAH Last Admin: 12/13/24 04:17 Dose: 10 mg Budesonide (Budesonide 0.5 Mg/2 Ml Neb) 0.5 mg INHALATION BID.RESPIRATORY AALIYAH Last Admin: 12/13/24 08:03 Dose: 0.5 mg Camphor/Menthol/Phenol (Blistex Lip Oint 7 Gm Tube) 1 applic TOPICAL PRN PRN PRN Reason: DRYNESS Cefepime HCl (Cefepime 2,000 Mg Sdv) 2,000 mg IVP Q12H [facility]; Protocol Last Admin: 12/13/24 08:13 Dose: 2,000 mg Diltiazem HCl (Diltiazem 60 Mg Tablet) 60 mg PO Q6H AALIYAH Last Admin: 12/13/24 05:34 Dose: 60 mg Enoxaparin Sodium (Enoxaparin 60 Mg/0.6 Ml Syringe) 50 mg SUBCUT Q12H AALIYAH Last Admin: 12/13/24 08:13 Dose: 50 mg Guaifenesin (Guaifenesin 600 Mg Tablet) 600 mg PO BID AALIYAH Last Admin: 12/13/24 04:17 Dose: 600 mg Vancomycin HCl 750 mg/ Sodium (Chloride) 250 mls @ 250 mls/hr IV Q12H AALIYAH Last Infusion: 12/13/24 06:33 Dose: Infused DILTIAZEM HCL/D5W (Cardizem) 125 mg in 125 mls @ 0 mls/hr IV .Q0M [facility]; Protocol Last Titration: 12/12/24 14:26 Dose: 0 mg/hr, 0 mls/hr Fluconazole 100 mg/ N/A 50 mls @ 50 mls/hr IV Q24H [facility] Potassium Chloride/Sodium Chloride (Sodium Chlor 0.9% + Kcl 40 Meq) 40 meq in 1,000 mls @ 100 mls/hr IV .Q10H AALIYAH Magnesium Sulfate/Dextrose (Magnesium Sulfate Premix) 1 gm in 100 mls @ 200 mls/hr IV ONCE ONE Stop: 12/13/24 09:01 Isosorbide Mononitrate (Isosorbide Mononitrate Er 30 Mg Tablet) 30 mg PO DAILY [facility] Last Admin: 12/13/24 04:17 Dose: 30 mg Lactulose (Lactulose Oral Liq 20 Gm/30 Ml Udc) 20 gm PO Q12H [facility] Last Admin: 12/13/24 00:38 Dose: 20 gm Lanolin (Lanolin Oint 7 Gm) 1 applic TOPICAL PRN PRN PRN Reason: DRYNESS Last Admin: 12/10/24 19:03 Dose: 1 applic Lisinopril (Lisinopril 20 Mg Tablet) 40 mg PO DAILY [facility] Last Admin: 12/13/24 04:17 Dose: 40 mg Lorazepam (Lorazepam 0.5 Mg Tablet) 0.5 mg PO BID PRN PRN Reason: ANXIETY Metoprolol Tartrate (Metoprolol Tartrate 25 Mg Tablet) 12.5 mg PO BID@0900,2100 [facility] Last Admin: 12/13/24 08:22 Dose: 12.5 mg Morphine Sulfate (Morphine 4 Mg/Ml Sdv 1 Ml) 2 mg IVP Q4H PRN PRN Reason: SEVERE PAIN Naloxone HCl (Naloxone 0.4 Mg/Ml Sdv) 0.1 mg IVP Q2M PRN PRN Reason: OPIATERV Ondansetron HCl (Ondansetron 2 Mg/Ml Sdv 2 Ml) 4 mg IVP Q8H PRN PRN Reason: vomiting, or N/V if npo Pantoprazole Sodium (Pantoprazole 40 Mg Sdv) 40 mg IVP Q24H [facility] Last Admin: 12/12/24 17:30 Dose: 40 mg Polyethylene Glycol (Polyethylene Glycol 3350 Pkt 17 Gm) 17 gm PO DAILY [facility] Last Admin: 12/13/24 04:17 Dose: 17 gm Prednisone (Prednisone 20 Mg Tablet) 40 mg PO DAILY [facility] Last Admin: 12/13/24 04:18 Dose: 40 mg Tramadol HCl (Tramadol 50 Mg Tablet) 100 mg PO TID PRN PRN Reason: PAIN Last Admin: 12/12/24 22:21 Dose: 100 mg Vitals/I&O/Wt Last Vital Signs Temp 98.0 F 12/13/24 04:00 Pulse 105 H 12/13/24 08:30 Resp 25 H 12/13/24 08:30 BP 144/72 12/13/24 08:30 Pulse Ox 89 L 12/13/24 08:30 O2 Del Method Nasal Cannula 12/13/24 08:00 O2 Flow Rate 2 12/13/24 08:00 FiO2 2 12/12/24 16:15 12/12/24 12/13/24 12/13/24 22:59 06:59 14:59 Intake Total 730 / 1729.25 250 / 1979.25 Output Total 1450 / 2000 1500 / 3500 Balance -720 / -270.75 -1250 / -1520.75 Weight last 48 hrs Weight 48.9 kg Weight 48.988 kg Physical Exam 2 Narrative: Patient is in bed using nasal cannula oxygen. She is comfortable. Vital signs noted. Heart rates irregular. HEENT normocephalic atraumatic Neck is supple no JVP. Lungs have improved air movement no crackles no rales. Heart irregular irregular. Abdomen is distended and tender high-pitched limited bowel sounds. Extremities no edema neuro awake alert oriented x 3 Urinary Catheter Management: Chi Latex: Cath Placed During This Visit: yes Reason for Continuing Indwelling Catheter: Accurate Measurement of Urinary Output in Critically Ill Patients Urinary Catheter Date of Insertion: 12/09/24 Urinary Catheter Time of Insertion: 20:45 Data 12/13/24 05:59 12/13/24 05:59 A&P Assessment and plan 1. Hyponatremia: 79-year-old lady with hypertension pneumonia and acute on chronic hyponatremia. Per chart the patient has some chronic hyponatremia which is felt to be SSRI induced. The patient had a sodium of 112 on presentation which was felt to be due to infection and poor intake with a low urine sodium. Patient's serum sodium is now 127 and urine sodium remains low. This is consistent with prerenal azotemia not SIADH or reset osmostat. Will give normal saline IV fluids and monitor. 2. Hypokalemia needs repletion 3. Replace phosphorus 4. Replace magnesium -I am concerned that she has nutritional depletion monitor for refeeding syndrome also. 5. Atrial fibrillation as per medicine and cardiology. 6. Constipation as per medicine. 7. Hypertension on lisinopril and diltiazem. Please avoid hydrochlorothiazide in this lady with hyponatremia. BP improved. Please avoid beta-blockers due to COPD. The patient was seen and examined using telehealth. The patient consented to telehealth. Exam with audiovisual equipment and the aid of a nurse. Plan: See above. PDMP PDMP Reviewed: Not Reviewed Attestations 2 Medical Necessity Statement*: Electrolyte abnormalities, pneumonia, COPD Time Spent in Patient Care: 16 - 35 minutes (>than 50% of time sp ent in counselling and/or direct pt care on unit) . Coding Level of Care Code Acute Code for [facility] Diagnoses Hyponatremia E87.1
[2024-12-13] MEDS: fluconazole premix 100 MG in empty flexible container 1 EACH 50 MG IV (09:11)
[2024-12-13] MEDS: magnesium sulfate premix 1 GM/100 ML PIGGYBACK IV (09:11)
[2024-12-13] MEDS: sodium chlor 0.9% + KCl 40 mEq 40 MEQ/1,000 ML BAG 100 MEQ IV ×2 (09:53→20:28)
[2024-12-13 13:38] LABS: Anion Gap 15.3 (5-19); Blood Urea Nitrogen 16 mg/dL (8-23); Calcium 8.7 mg/dL (8.5-10.5); Carbon Dioxide 26 mmol/L (22-29); Chloride 87 mmol/L (98-107); Glucose 174 mg/dL (65-115); Osmolality Calculated 263 mOsm/kg (285-295); Potassium 4.3 mmol/L (3.5-5.1); Sodium 124 mmol/L (136-145)
--- NOTE | 2024-12-13 14:31 | P.PN_ITS ---
Subjective 2 Subjective: Patient was seen this morning, currently alert oriented x 3, follow commands sitting up to bed, denies any chest pain, no palpitations, does have a cough, discussed possible discharge today based upon her sodium trend Vitals/I&O/Wt Last Vital Signs Temp 98.0 F 12/13/24 04:00 Pulse 83 12/13/24 13:43 Resp 23 H 12/13/24 13:00 BP 144/69 12/13/24 13:43 Pulse Ox 95 12/13/24 13:00 O2 Del Method Nasal Cannula 12/13/24 13:00 O2 Flow Rate 2 12/13/24 11:24 FiO2 2 12/12/24 16:15 12/12/24 12/13/24 12/13/24 22:59 06:59 14:59 Intake Total 730 / 1729.25 250 / 1979.25 500 / 500 Output Total 1450 / 2000 1500 / 3500 350 / 350 Balance -720 / -270.75 -1250 / -1520.75 150 / 150 Weight last 48 hrs Weight 48.9 kg Weight 48.988 kg Physical Exam 2 Const: COMMON NORMALS: no acute distress and patient oriented x3 Resp: COMMON NORMALS: normal respiratory effort, No retractions, No use of accessory muscles and clear to auscultation bilaterally AUSCULTATION: clear to auscultation bilaterally Cardio: COMMON NORMALS: regular rate, regular rhythm, S1 normal heart sound present and S2 normal heart sound present RATE: regular rate RHYTHM: r egular rhythm HEART SOUNDS: S1 normal heart sound present and S2 normal heart sound present GI: COMMON NORMALS: Normal to inspection, nondistended, normoactive bowel sounds present and non-tender Extremity: COMMON NORMALS: no pedal edema Neuro: COMMON NORMALS: patient oriented x3 Psych: COMMON NORMALS: mental status grossly normal Urinary Catheter Management: Chi Latex: Cath Placed During This Visit: yes Reason for Continuing Indwelling Catheter: Accurate Measurement of Urinary Output in Critically Ill Patients Urinary Catheter Date of Insertion: 12/09/24 Urinary Catheter Time of Insertion: 20:45 Data 12/13/24 05:59 12/13/24 13:13 Micro: Microbiology 12/09/24 22:45 Gram Stain - Final Sputum - Expectorated Sputum Sputum Culture - Final Judy albicans A&P Assessment and plan 1. Hypertension: 2. Bilateral pneumonia: 3. Acute respiratory failure with hypoxia: Plan: Acute hypoxic respiratory failure Bilateral pneumonia COPD exacerbation CT/CT angio chest PE protcl [id number] IMPRESSION: 1. No evidence for pulmonary embolism. 2. Bilateral lower lobe consolidation, most consistent with pneumonia. 3. Marked carotid bulb calcification is partially imaged bilaterally. 4. Mild T11 compression fracture of indeterminate age. 5. Severe centrilobular bullous disease, primarily in the upper lobes. Plan -Secondary to bilateral lower lobe pneumonia -Broaden antibiotic coverage to vancomycin, cefepime -Sputum cultures growing Judy, start Diflucan - De-escalate to prednisone 40 mg daily -Sputum culture -Blood culture -DuoNeb -Budesonide -Full code -Lovenox for DVT prophylaxis Atrial fibrillation with rapid ventricular spots - Cardizem, metoprolol - Therapeutic Lovenox Transaminitis, CT scan abdomen pelvis, no acute findings Ileus seen on CT scan CT/CT abdomen pelvis wo con [id number] IMPRESSION: 1. Tiny bilateral pleural effusions with subsegmental ectasis in the lung bases. 2. Cholelithiasis. 3. Air distended loops of predominantly small bowel in the pelvis and anterior abdomen may be due to adynamic ileus. Early obstruction not excluded. Recommend interval follow-up. 4. Constipation in the cecum and RIGHT colon. LEFT colon is decompressed. 5. Sigmoid diverticulosis. 6. Dense vascular calcification. 7. Atrophic RIGHT kidney. 8. Diffuse body wall anasarca - Passing gas from below - She had a bowel movement - MiraLAX, lactulose Sepsis secondary to bilateral pneumonia, acute hypoxic respiratory failure resolved Acute encephalopathy, metabolic, resolving -Secondary sepsis, hypoxia, pneumonia, hyponatremia -Monitor mentation closely Acute on chronic hyponatremia -Baseline sodium is 128-130 - Serum 124 -Has been received sepsis bolus in the emergency room - Monitor serum sodium -Nephrology consulted, will consider hypertonic saline -Seizure precautions, neurochecks Full code Lovenox for DVT prophylaxis PDMP PDMP Reviewed: Not Reviewed Attestations 2 Medical Necessity Statement*: Patient requires hospitalization for hyponatremia, pneumonia Diagnoses Hypertension I10 Bilateral pneumonia J18.9 Acute respiratory failure with hypoxia J96.01
[2024-12-13 17:06] LABS: Sodium 122 mmol/L (136-145)
[2024-12-13] MEDS: pantoprazole 40 mg SDV IVP (17:16)
--- NOTE | 2024-12-13 22:16 | XRR_ITS ---
PROCEDURE INFORMATION: Exam: XR Chest Exam date and time: 12/13/2024 11:21 PM Age: 79 years old Clinical indication: Shortness of breath; Additional info: SOB TECHNIQUE: Imaging protocol: Radiologic exam of the chest. Views: 1 view. COMPARISON: CR XR chest 1V portable [id number] 12/12/2024 9:22 AM FINDINGS: Lungs: Airspace consolidations at the lung bases, concerning for multilobar pneumonia. Emphysema. Pleural spaces: Unremarkable. No pleural effusion. No pneumothorax. Heart/Mediastinum: Unremarkable. No cardiomegaly. Bones/joints: Unremarkable. XR/XR chest 1V portable [id number] IMPRESSION: Airspace consolidations at the lung bases, concerning for multilobar pneumonia. Emphysema with hyperinflation, correlate for COPD.
[2024-12-13] MEDS: methylPREDNISolone sod succ 125 mg/2 mL INJ 60 MG IVP (22:21)
[2024-12-13] MEDS: FUROsemide 10 mg/mL SDV 4mL 40 MG IVP (22:24)
[2024-12-13 22:36] LABS: ABG PCO2 49.3 mmHg (35-45); ABG PH Result 7.29 (7.35-7.45); Alveolar-Arterial Oxygen Gradi 65.6 mmHg (5-10); Arterial Blood Gas Hematocrit 42.1 % (37-47); Blood Gas Allen Test Pos; Blood Gas LPM 15.0 %; Blood Gas Operator Identificat JDB; Blood Gas Sample Site Radial, right; Blood Gas Sample Type Arterial; Carboxyhemoglobin 0.4 %THgb (0.4-20.1); Glucose Level-ABG 193.0 mg/dL (70-115); HCO3 ABG 23.8 mmol/L (22-26); Ionized Calcium Level - ABG 1.2 mmol/L (1.1-1.4); Methemoglobin 0.9 % (0.4-1.5); Oxygen Saturation ABG 98.7; PO2 ABG 141.0 mmHg (80.0-100.0); PO2 FiO2 Ratio Arterial Blood 141; Potassium Level - ABG 5.0 mmol/L (3.5-5.0); Sodium Level - ABG 121.0 mmol/L (131-143)
[2024-12-13 23:49] LABS: Sodium 123 mmol/L (136-145)
[2024-12-14] VITALS (47 sets, daily range): BP systolic 105–166; BP diastolic 58–105; PULSE 67–102; RESP 16–26; TEMP 36.1–37.1; O2SAT 89–100
[2024-12-14 01:50] LABS: Hematocrit 34.0 % (36-47); Hemoglobin 11.90 g/dL (11.27-16.99); Mean Corpuscular HGB Conc 35.0 g/dL (30-55); Mean Corpuscular Hemoglobin 29.2 pg (27-33); Mean Corpuscular Volume 83.3 fl (85-98); Nucleated Red Blood Cells % 0.1 %; Platelet Count 539 10^3/cmm (157-399); Red Blood Count 4.08 10^6/uL (3.85-5.65); White Blood Count 22.88 10^3/uL (3.29-11.43)
--- NOTE | 2024-12-14 01:56 | PC.NURSE ---
at approx 2200 patient requested to get up to bedside commode after return to bed patient's o2 sat decreased momentarily RT and Dr. Concepcion notifed and came to bedside patient placed on BIPAP and this nurse received verbal orders from Dr. Concepcion for medication, imaging, labs and one time straight cath.
[2024-12-14 02:10] LABS: Anion Gap 14.4 (5-19); Blood Urea Nitrogen 20 mg/dL (8-23); Calcium 8.5 mg/dL (8.5-10.5); Carbon Dioxide 24 mmol/L (22-29); Chloride 88 mmol/L (98-107); Glucose 173 mg/dL (65-115); Osmolality Calculated 261 mOsm/kg (285-295); Potassium 4.4 mmol/L (3.5-5.1); Sodium 122 mmol/L (136-145)
--- NOTE | 2024-12-14 04:18 | PC.NURSE ---
patient refused lactulose
[2024-12-14] MEDS: polyethylene glycol 3350 Pkt 17 gm PO (05:05)
[2024-12-14 06:44] LABS: Alanine Aminotransferase 55 U/L (0-33); Albumin Level 3.1 g/dL (3.5-5.2); Alkaline Phosphatase 100 U/L (35-105); Anion Gap 16.8 (5-19); Aspartate Amino Transferase 34 U/L (0-32); Blood Urea Nitrogen 18 mg/dL (8-23); Calcium 8.7 mg/dL (8.5-10.5); Carbon Dioxide 23 mmol/L (22-29); Chloride 87 mmol/L (98-107); Globulin 3.5 g/dL (1.3-4.6); Glucose 165 mg/dL (65-115); Magnesium 1.9 mg/dL (1.7-2.3); Osmolality Calculated 262 mOsm/kg (285-295); Potassium 3.8 mmol/L (3.5-5.1); Sodium 123 mmol/L (136-145); Total Protein 6.6 g/dL (6.6-8.7); Uric Acid 2.1 mg/dL (2.4-5.7)
--- NOTE | 2024-12-14 07:41 | P.PN_ITS ---
Subjective 2 Subjective: she developed SOB last night and received furosemide and feels better. Medications: Reviewed: Yes Medication Review Details: Current Medications Acetaminophen (Acetaminophen 325 Mg Tablet) 650 mg PO Q6H PRN PRN Reason: Mild/Mod Pain Or Temp >/= 101 Albuterol/Ipratropium (Ipratropium-Albuterol 3 Ml Neb) 3 ml INHALATION Q4H.RESPIRATORY AALIYAH Last Admin: 12/14/24 03:03 Dose: 3 ml Aspirin (Aspirin 81 Mg Ec Tablet) 81 mg PO DAILY AALIYAH Last Admin: 12/14/24 04:56 Dose: 81 mg Atorvastatin Calcium (Atorvastatin 40 Mg Tablet) 80 mg PO DAILY AALIYAH Last Admin: 12/14/24 04:54 Dose: 80 mg Bisacodyl (Bisacodyl 5 Mg Tablet) 10 mg PO DAILY AALIYAH Last Admin: 12/14/24 05:05 Dose: 10 mg Budesonide (Budesonide 0.5 Mg/2 Ml Neb) 0.5 mg INHALATION BID.RESPIRATORY AALIYAH Last Admin: 12/13/24 19:56 Dose: 0.5 mg Camphor/Menthol/Phenol (Blistex Lip Oint 7 Gm Tube) 1 applic TOPICAL PRN PRN PRN Reason: DRYNESS Cefepime HCl (Cefepime 2,000 Mg Sdv) 2,000 mg IVP Q12H AALIYAH; Protocol Last Admin: 12/13/24 19:47 Dose: 2,000 mg Diltiazem HCl (Diltiazem 60 Mg Tablet) 60 mg PO Q6H AALIYAH Last Admin: 12/14/24 06:49 Dose: 60 mg Enoxaparin Sodium (Enoxaparin 60 Mg/0.6 Ml Syringe) 50 mg SUBCUT Q12H AALIYAH Last Admin: 12/13/24 19:50 Dose: 50 mg Guaifenesin (Guaifenesin 600 Mg Tablet) 600 mg PO BID AALIYAH Last Admin: 12/14/24 04:53 Dose: 600 mg Vancomycin HCl 750 mg/ Sodium (Chloride) 250 mls @ 250 mls/hr IV Q12H AALIYAH Last Admin: 12/14/24 05:07 Dose: 250 mls/hr Fluconazole 100 mg/ N/A 50 mls @ 50 mls/hr IV Q24H AALIYAH Last Infusion: 12/13/24 10:36 Dose: Infused Isosorbide Mononitrate (Isosorbide Mononitrate Er 30 Mg Tablet) 30 mg PO DAILY [facility] Last Admin: 12/14/24 04:54 Dose: 30 mg Lactulose (Lactulose Oral Liq 20 Gm/30 Ml Udc) 20 gm PO Q12H [facility] Last Admin: 12/14/24 05:55 Dose: Not Given Lanolin (Lanolin Oint 7 Gm) 1 applic TOPICAL PRN PRN PRN Reason: DRYNESS Last Admin: 12/10/24 19:03 Dose: 1 applic Lisinopril (Lisinopril 20 Mg Tablet) 40 mg PO DAILY [facility] Last Admin: 12/14/24 04:56 Dose: 40 mg Lorazepam (Lorazepam 0.5 Mg Tablet) 0.5 mg PO BID PRN PRN Reason: ANXIETY Metoprolol Tartrate (Metoprolol Tartrate 25 Mg Tablet) 12.5 mg PO BID@0900,2100 [facility] Last Admin: 12/13/24 20:33 Dose: 12.5 mg Morphine Sulfate (Morphine 4 Mg/Ml Sdv 1 Ml) 2 mg IVP Q4H PRN PRN Reason: SEVERE PAIN Naloxone HCl (Naloxone 0.4 Mg/Ml Sdv) 0.1 mg IVP Q2M PRN PRN Reason: OPIATERV Ondansetron HCl (Ondansetron 2 Mg/Ml Sdv 2 Ml) 4 mg IVP Q8H PRN PRN Reason: vomiting, or N/V if npo Pantoprazole Sodium (Pantoprazole 40 Mg Sdv) 40 mg IVP Q24H [facility] Last Admin: 12/13/24 17:16 Dose: 40 mg Polyethylene Glycol (Polyethylene Glycol 3350 Pkt 17 Gm) 17 gm PO DAILY [facility] Last Admin: 12/14/24 05:05 Dose: 17 gm Potassium Phosphate (Phosphorus 250 Mg Tablet) 250 mg PO BID [facility] Stop: 12/16/24 00:01 Last Admin: 12/14/24 04:54 Dose: 250 mg Prednisone (Prednisone 20 Mg Tablet) 40 mg PO DAILY [facility] Last Admin: 12/14/24 04:56 Dose: 40 mg Tramadol HCl (Tramadol 50 Mg Tablet) 100 mg PO TID PRN PRN Reason: PAIN Last Admin: 12/14/24 04:54 Dose: 100 mg Urea (Urea 15 Gm Powder) 15 gm PO DAILY [facility] Vitals/I&O/Wt Last Vital Signs Temp 97.5 F L 12/14/24 04:00 Pulse 87 12/14/24 06:00 Resp 20 H 12/14/24 05:50 BP 151/63 12/14/24 04:50 Pulse Ox 95 12/14/24 05:50 O2 Del Method Nasal Cannula 12/14/24 05:50 O2 Flow Rate 4 12/14/24 05:50 FiO2 30 12/14/24 03:05 12/13/24 12/14/24 12/14/24 22:59 06:59 14:59 Intake Total 1450 / 1950 600 / 2550 Output Total 350 / 700 1200 / 1900 Balance 1100 / 1250 -600 / 650 Weight last 48 hrs Weight 54.975 kg Weight 48.9 kg Physical Exam 2 Narrative: Patient is in bed using nasal cannula oxygen. She is currently comfortable. Vital signs noted. HEENT normocephalic atraumatic Neck is supple no JVP. Lungs have dull bases per pharmaceutical detailer irregular irregular. Abdomen is distended and tender high-pitched limited bowel sounds. Extremities no edema neuro awake alert oriented x 3 Urinary Catheter Management: Chi Latex: Cath Placed During This Visit: yes Reason for Continuing Indwelling Catheter: Accurate Measurement of Urinary Output in Critically Ill Patients Urinary Catheter Date of Insertion: 12/09/24 Urinary Catheter Time of Insertion: 20:45 Data 12/14/24 01:35 12/14/24 05:33 Micro: Microbiology 12/09/24 22:45 Gram Stain - Final Sputum - Expectorated Sputum Sputum Culture - Final Judy albicans A&P Assessment and plan 1. Hyponatremia: 79-year-old lady with hypertension pneumonia and acute on chronic hyponatremia. Per chart the patient has some chronic hyponatremia which is felt to be SSRI induced. The patient had a sodium of 112 on presentation which was felt to be due to infection and poor intake with a low urine sodium. Patient's serum sodium is now 127 and urine sodium remains low. This is consistent with prerenal azotemia not SIADH or reset osmostat. 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 2. Hypokalemia improving 3. Replace phosphorus and magnesium as needed 4. Atrial fibrillation as per medicine and cardiology. 5.. Hypertension -improving/ Please avoid hydrochlorothiazide in this lady with hyponatremia. Please avoid beta-blockers due to COPD. The patient was seen and examined using telehealth. The patient consented to telehealth. Exam with audiovisual equipment and the aid of a nurse. Plan: See above. please give ivf if okay w/ hospitalist PDMP PDMP Reviewed: Not Reviewed Attestations 2 Medical Necessity Statement*: Hyponatremia Time Spent in Patient Care: Greater than 35 minutes (>than 50% of time spent in counselling and/or direct pt care on unit) . Coding Level of Care Code Acute Code for [facility] Diagnoses Hyponatremia E87.1
--- NOTE | 2024-12-14 08:03 | W.PM.EVENTAC ---
Event Note Event Note: acute hypoxia: Patient had resp distress after using the commode chair, possible COPD exacerbation episode Event Notes Attestations Time Spent in Patient Care: I was called around 22:00 for the desaturation and resp distress pt alert and oriented, able to speak in partial sentences. RR around 30s. prolonged exp phase on examination and ascultation revealed diffuse wheezes. CXR showed features of pneumonia and hyperinflation fluid held since pt osmolality was low and was having hyponatremia and also to avoid possible fluid overload. solu medrol 60mg iv once, with back to back nebs for 30mins, BIPAP and one dose of iv lasix requested abg did not show low po2 and mild increased pco2 patient got stable in 10-15 min of management and later was able to sleep overnight with stable vitals.
[2024-12-14] MEDS: cefepime 2,000 mg SDV 2000 MG IVP ×2 (08:17→20:52)
[2024-12-14] MEDS: fluconazole premix 100 MG in empty flexible container 1 EACH 50 MG IV (08:17)
--- NOTE | 2024-12-14 11:00 | PICC.NOTE ---
IMM Updated Updated pt on IMM. No questions voiced. Provided pt a copy. Initialed, dated, & timed copy in chart.
[2024-12-14 14:20] LABS: Anion Gap 14.8 (5-19); Blood Urea Nitrogen 23 mg/dL (8-23); Calcium 8.5 mg/dL (8.5-10.5); Carbon Dioxide 24 mmol/L (22-29); Chloride 85 mmol/L (98-107); Glucose 174 mg/dL (65-115); Osmolality Calculated 258 mOsm/kg (285-295); Potassium 3.8 mmol/L (3.5-5.1); Sodium 120 mmol/L (136-145)
--- NOTE | 2024-12-14 16:11 | P.PN_ITS ---
Subjective 2 Subjective: Patient was seen this morning, she is more comfortable, denies any chest pain, palpitations, shortness of breath is improving, reportedly had an episode of shortness of breath during the night, associate with a productive cough, denies any diarrhea, no fevers, no chills Vitals/I&O/Wt Last Vital Signs Temp 97.5 F L 12/14/24 04:00 Pulse 80 12/14/24 16:00 Resp 18 12/14/24 15:06 BP 166/66 12/14/24 16:00 Pulse Ox 97 12/14/24 16:00 O2 Del Method Nasal Cannula 12/14/24 15:06 O2 Flow Rate 2 12/14/24 15:06 FiO2 30 12/14/24 03:05 12/14/24 12/14/24 12/14/24 06:59 14:59 22:59 Intake Total 600 / 2550 420 / 420 Output Total 1200 / 1900 Balance -600 / 650 420 / 420 Weight last 48 hrs Weight 54.975 kg Weight 48.9 kg Physical Exam 2 Const: COMMON NORMALS: no acute distress and patient oriented x3 Resp: COMMON NORMALS: normal respiratory effort, No retractions and No use of accessory muscles AUSCULTATION: wheezes Cardio: COMMON NORMALS: regular rate, regular rhythm, S1 normal heart sound present and S2 normal heart sound present RATE: regular rate RHYTHM: r egular rhythm HEART SOUNDS: S1 normal heart sound present and S2 normal heart sound present GI: COMMON NORMALS: Normal to inspection, nondistended, normoactive bowel sounds present and non-tender Extremity: COMMON NORMALS: no pedal edema Neuro: COMMON NORMALS: patient oriented x3 Psych: COMMON NORMALS: mental status grossly normal Urinary Catheter Management: Chi Latex: Cath Placed During This Visit: yes Reason for Continuing Indwelling Catheter: Accurate Measurement of Urinary Output in Critically Ill Patients Urinary Catheter Date of Insertion: 12/14/24 Urinary Catheter Time of Insertion: 15:48 Data 12/14/24 01:35 12/14/24 13:50 Micro: Microbiology 12/09/24 22:45 Gram Stain - Final Sputum - Expectorated Sputum Sputum Culture - Final Judy albicans A&P Assessment and plan 1. Hypertension: 2. Bilateral pneumonia: 3. Acute respiratory failure with hypoxia: Plan: Acute hypoxic respiratory failure Bilateral pneumonia COPD exacerbation CT/CT angio chest PE protcl [id number] IMPRESSION: 1. No evidence for pulmonary embolism. 2. Bilateral lower lobe consolidation, most consistent with pneumonia. 3. Marked carotid bulb calcification is partially imaged bilaterally. 4. Mild T11 compression fracture of indeterminate age. 5. Severe centrilobular bullous disease, primarily in the upper lobes. - With episode of shortness of breath during the night requiring Lasix, steroids, DuoNeb Plan -Secondary to bilateral lower lobe pneumonia -Broaden antibiotic coverage to vancomycin, cefepime -Sputum cultures growing Judy, start Diflucan - De-escalate to prednisone 40 mg daily -Sputum culture -Blood culture -DuoNeb -Budesonide -Full code -Lovenox for DVT prophylaxis Atrial fibrillation with rapid ventricular spots - Cardizem, metoprolol, Cardizem - Therapeutic Lovenox Transaminitis, CT scan abdomen pelvis, no acute findings Ileus seen on CT scan CT/CT abdomen pelvis wo con [id number] IMPRESSION: 1. Tiny bilateral pleural effusions with subsegmental ectasis in the lung bases. 2. Cholelithiasis. 3. Air distended loops of predominantly small bowel in the pelvis and anterior abdomen may be due to adynamic ileus. Early obstruction not excluded. Recommend interval follow-up. 4. Constipation in the cecum and RIGHT colon. LEFT colon is decompressed. 5. Sigmoid diverticulosis. 6. Dense vascular calcification. 7. Atrophic RIGHT kidney. 8. Diffuse body wall anasarca - Passing gas from below - She had a bowel movement - MiraLAX, lactulose Sepsis secondary to bilateral pneumonia, acute hypoxic respiratory failure resolved Acute encephalopathy, metabolic, resolving -Secondary sepsis, hypoxia, pneumonia, hyponatremia -Monitor mentation closely Acute on chronic hyponatremia -Baseline sodium is 128-130 - Serum down to 120 potentially related to Lasix? -Has been received sepsis bolus in the emergency room - Monitor serum sodium -Nephrology consulted, IV hydration -Seizure precautions, neurochecks Full code Lovenox for DVT prophylaxis Plan for today IV antibiotics, monitor respiratory status, IV antibiotics, steroids PDMP PDMP Reviewed: Not Reviewed Attestations 2 Medical Necessity Statement*: Patient requires hospitalization for respiratory failure, pneumonia hyponatremia Diagnoses Hypertension I10 Bilateral pneumonia J18.9 Acute respiratory failure with hypoxia J96.01
[2024-12-14] MEDS: pantoprazole 40 mg SDV IVP (17:36)
[2024-12-14 19:38] LABS: Potassium, Radom Urine 32 mmol/L; Urine Random Chloride 46 mmol/L; Urine Random Sodium 26 mmol/L
[2024-12-14 22:18] LABS: Anion Gap 15.8 (5-19); Blood Urea Nitrogen 22 mg/dL (8-23); Calcium 8.3 mg/dL (8.5-10.5); Carbon Dioxide 23 mmol/L (22-29); Chloride 87 mmol/L (98-107); Glucose 143 mg/dL (65-115); Osmolality Calculated 260 mOsm/kg (285-295); Potassium 3.8 mmol/L (3.5-5.1); Sodium 122 mmol/L (136-145)
[2024-12-14] MEDS: lactulose oral liq 20 gm/30 mL UDC PO (23:39)
[2024-12-15] VITALS (34 sets, daily range): BP systolic 130–173; BP diastolic 57–133; PULSE 61–96; RESP 17–29; TEMP 36.1–36.5; O2SAT 75–98
[2024-12-15 04:22] LABS: Hematocrit 34.1 % (36-47); Hemoglobin 11.60 g/dL (11.27-16.99); Mean Corpuscular HGB Conc 34.0 g/dL (30-55); Mean Corpuscular Hemoglobin 29.2 pg (27-33); Mean Corpuscular Volume 85.9 fl (85-98); Nucleated Red Blood Cells % 0 %; Platelet Count 534 10^3/cmm (157-399); Red Blood Count 3.97 10^6/uL (3.85-5.65); White Blood Count 20.38 10^3/uL (3.29-11.43)
[2024-12-15] MEDS: polyethylene glycol 3350 Pkt 17 gm PO (04:29)
[2024-12-15 04:40] LABS: Alanine Aminotransferase 59 U/L (0-33); Albumin Level 3.0 g/dL (3.5-5.2); Alkaline Phosphatase 98 U/L (35-105); Anion Gap 15.7 (5-19); Aspartate Amino Transferase 48 U/L (0-32); Blood Urea Nitrogen 19 mg/dL (8-23); Calcium 8.4 mg/dL (8.5-10.5); Carbon Dioxide 24 mmol/L (22-29); Chloride 89 mmol/L (98-107); Globulin 2.8 g/dL (1.3-4.6); Glucose 106 mg/dL (65-115); Magnesium 1.9 mg/dL (1.7-2.3); Osmolality Calculated 263 mOsm/kg (285-295); Potassium 3.7 mmol/L (3.5-5.1); Sodium 125 mmol/L (136-145); Total Protein 5.8 g/dL (6.6-8.7); Uric Acid 1.9 mg/dL (2.4-5.7)
--- NOTE | 2024-12-15 04:53 | PC.NURSE ---
Respiratory Distress: Patient has had increased shortness of breath, desaturations and has increased oxygen requirements from 2L to 5L. Lung sounds now have coarse crackles and rales. RT notified and came to bedside and placed patient on bipap, fluids were paused. Dr. Concepcion notified and orders received to discontinue fluids and continue bipap.
--- NOTE | 2024-12-15 08:04 | XRR_ITS ---
PROCEDURE INFORMATION: Exam: XR Chest Exam date and time: 12/15/2024 12:16 PM Age: 79 years old Clinical indication: Shortness of breath; Additional info: SOB TECHNIQUE: Imaging protocol: Radiologic exam of the chest. Views: 1 view. COMPARISON: CR (CHEST, ) 12/13/2024 11:21 PM FINDINGS: Lungs: Slightly increased patchy bibasilar opacities. Lungs are hyperexpanded with emphysematous changes. Pleural spaces: Increasing small bilateral pleural effusions. Heart/Mediastinum: Unremarkable. No cardiomegaly. Vasculature: Atherosclerotic aortic calcifications. Bones/joints: Unremarkable. XR/XR chest 1V portable [id number] IMPRESSION: Increasing small bilateral pleural effusions with bibasilar opacities which could represent pneumonia in the correct clinical setting.
--- NOTE | 2024-12-15 08:04 | USCV_ITS ---
Korin Ryan Age: 79 Gender: F : 1945 Exam Date: 12/15/2024 10:13 Ordering Phys: Noé Hernandez MD Technologist: Kasi Ziegler Exam Location: [facility] [place] Indication: sob BP: 150 / 57 HR: 73 Rhythm: Sinus Technical Quality: Adequate MEASUREMENTS (Male / Female) Normal Values 2D ECHO LV Diastolic Diameter PLAX 5.5 cm 4.2 - 5.9 / 3.9 - 5.3 cm IVS Diastolic Thickness 0.8 cm 0.6 - 1.0 / 0.6 - 0.9 cm IVS Systolic Thickness 1.2 cm LVPW Diastolic Thickness 0.7 cm 0.6 - 1.0 / 0.6 - 0.9 cm LVPW Systolic Thickness 1.3 cm LVOT Diameter 2.0 cm LV Ejection Fraction 2D Teich 62.1 % LV Ejection Fraction MOD 4C 73.0 % LV Ejection Fraction MOD 2C 79.7 % LV Ejection Fraction 2C AL 82.3 % LA Diameter 3.3 cm RA Systolic Volume 4C AL 32.2 ml RA Systolic Volume 4C MOD 33.2 ml LA Sys Volume AL 61.9 cm cubed LA Sys Volume Index AL 38.0 cm cubed/m squared Aorta at Sinotubular Diameter 2.2 cm DOPPLER AV Peak Velocity 276.3 cm/s LVOT Peak Velocity 185.0 cm/s AV Area Cont Eq vti 2.1 cm squared AV Area Cont Eq pk 2.1 cm squared MV Peak Velocity 98.0 cm/s MV Area PHT 5.7 cm squared Mitral E to A Ratio 0.8 TV Peak Velocity 255.8 cm/s TR Peak Velocity 364.0 cm/s TR Peak Gradient 53.0 mmHg TR Mean Velocity 307.0 cm/s TR Mean Gradient 38.5 mmHg TR Velocity Time Integral 96.8 cm PV Peak Velocity 127.0 cm/s RV Ejection Time 0.3 s FINDINGS Left Ventricle Normal left ventricular size, systolic function and wall thickness, with no regional wall motion abnormalities. Left ventricular ejection fraction is estimated at 60 %. Grade I/IV diastolic dysfunction (abnormal relaxation filling pattern), normal to mildly elevated filling pressures. Right Ventricle Normal right ventricular size and systolic function. Right Atrium Normal right atrial size. Left Atrium Moderately increased left atrial size. IA Septum Normal appearance of the interatrial septum. Mitral Valve Normal mitral valve structure. No mitral valve stenosis or regurgitation. Aortic Valve Severe aortic valve calcification. Mild aortic valve stenosis, mean gradient 15.5 mmHg, JANEEN 2.1 cm squared. Moderate aortic valve regurgitation. Tricuspid Valve Trace tricuspid valve regurgitation. Pulmonic Valve Normal pulmonic valve structure. No pulmonic valve stenosis or regurgitation. Pericardium No pericardial effusion. Aorta Normal diameter of the aortic root and ascending thoracic aorta. IVC Normal IVC diameter. CONCLUSIONS Normal left ventricular size, systolic function and wall thickness, with no regional wall motion abnormalities. Left ventricular ejection fraction is estimated at 60 %. Grade I/IV diastolic dysfunction (abnormal relaxation filling pattern), normal to mildly elevated filling pressures. Moderately increased left atrial size. Severe aortic valve calcification. Mild aortic valve stenosis, mean gradient 15.5 mmHg, JANEEN 2.1 cm squared. Moderate aortic valve regurgitation. There is no pericardial effusion. Right atrial pressure is around 5 mm of mercury. Sergio Kessler MD (Electronically Signed) Final Date: 15 December 2024 12:50 S
[2024-12-15] MEDS: methylPREDNISolone sod succ 40 mg/mL INJ IVP ×3 (08:23→20:28)
[2024-12-15] MEDS: water for injection-sterile 10 ML 10000 ML (08:24)
[2024-12-15] MEDS: piperacillin-tazobactam 3.375 GM in sodium chloride 0.9% (plus) 50 ML IV ×2 (08:34→16:40)
--- NOTE | 2024-12-15 08:45 | ECG_ITS ---
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 Measurements Intervals [place] Rate: 80 P: 37 OH: 97 QRS: 47 QRSD: 93 T: 232 QT: 362 QTc: 419 Interpretive Statements SINUS RHYTHM WITH SINUS ARRHYTHMIA WITH SHORT OH INTERVAL NONSPECIFIC T-WAVE ABNORMALITY Compared to ECG 12/12/2024 08:19:09 Short OH interval now present Atrial fibrillation no longer present T-wave abnormality still present Electronically Signed On 12-15-2024 12:59:19 HELP DESK ANALYST by Radha Lucero M.D. [email or web address]
[2024-12-15 09:15] LABS: Troponin(5th) Baseline 20 ng/L (0-10)
[2024-12-15 09:25] LABS: NT Pro B Type Natriuretic Pept 1808 pg/mL (0-450); Procalcitonin 0.13 ng/mL (0-0.5)
[2024-12-15 09:36] LABS: Anion Gap 16.5 (5-19); Blood Urea Nitrogen 18 mg/dL (8-23); Calcium 8.2 mg/dL (8.5-10.5); Carbon Dioxide 21 mmol/L (22-29); Chloride 89 mmol/L (98-107); Glucose 109 mg/dL (65-115); Osmolality Calculated 258 mOsm/kg (285-295); Potassium 3.5 mmol/L (3.5-5.1); Sodium 123 mmol/L (136-145)
--- NOTE | 2024-12-15 09:39 | PC.NURSE ---
off bipap and started on nc new orders noted , nasal swab done and to lab, iv right ac out ,, resited one left arm good blood return ,lab and ekg done
[2024-12-15 10:05] LABS: Respiratory Syncytial Virus Ce NEGATIVE (Negative); SARS-CoV-2 PCR NEGATIVE (Negative)
--- NOTE | 2024-12-15 10:05 | ECG_ITS ---
[facility] Test Date: 2024-12-15 Pat Name: Korin Ryan Department: Room: ICU10 Gender: Female Student Teacher: : 1945 Requested By: Noé Hernandez Order Number: [id number] Darryl MD: Radha Lucero M.D. Measurements Intervals [place] Rate: 76 P: 46 MO: 130 QRS: 51 QRSD: 98 T: 180 QT: 393 QTc: 442 Interpretive Statements SINUS RHYTHM WITH OCCASIONAL SUPRAVENTRICULAR PREMATURE COMPLEXES MODERATE T-WAVE ABNORMALITY, CONSIDER LATERAL ISCHEMIA [-0.1+ mV T-WAVE IN I/aVL/V5/V6] Compared to ECG 12/15/2024 08:45:49 Possible ischemia now present Sinus arrhythmia no longer present Short MO interval no longer present T-wave abnormality still present Electronically Signed On 12-15-2024 13:03:45 KETTLE COORDINATOR by Radha Lucero M.D. [email or web address]
--- NOTE | 2024-12-15 10:06 | P.PN_ITS ---
Subjective 2 Subjective: Patient was seen and examined. Patient had shortness of breath overnight however is now comfortable. On oxygen. Feels better. Receiving antibiotics. No complaints at present time Medications: Reviewed: Yes Medication Review Details: Current Medications Acetaminophen (Acetaminophen 325 Mg Tablet) 650 mg PO Q6H PRN PRN Reason: Mild/Mod Pain Or Temp >/= 101 Albuterol/Ipratropium (Ipratropium-Albuterol 3 Ml Neb) 3 ml INHALATION Q4H.RESPIRATORY AALIYAH Last Admin: 12/15/24 07:38 Dose: 3 ml Aspirin (Aspirin 81 Mg Ec Tablet) 81 mg PO DAILY AALIYAH Last Admin: 12/15/24 04:29 Dose: 81 mg Atorvastatin Calcium (Atorvastatin 40 Mg Tablet) 80 mg PO DAILY AALIYAH Last Admin: 12/15/24 04:29 Dose: 80 mg Bisacodyl (Bisacodyl 5 Mg Tablet) 10 mg PO DAILY AALIYAH Last Admin: 12/15/24 04:29 Dose: 10 mg Budesonide (Budesonide 0.5 Mg/2 Ml Neb) 0.5 mg INHALATION BID.RESPIRATORY AALIYAH Last Admin: 12/15/24 07:39 Dose: 0.5 mg Camphor/Menthol/Phenol (Blistex Lip Oint 7 Gm Tube) 1 applic TOPICAL PRN PRN PRN Reason: DRYNESS Diltiazem HCl (Diltiazem 60 Mg Tablet) 60 mg PO Q6H [facility] Last Admin: 12/15/24 05:50 Dose: 60 mg Enoxaparin Sodium (Enoxaparin 60 Mg/0.6 Ml Syringe) 50 mg SUBCUT Q12H AALIYAH Last Admin: 12/15/24 08:17 Dose: 50 mg Fluconazole (Fluconazole 100 Mg Tablet) 100 mg PO Q24H AALIYAH Last Admin: 12/15/24 08:17 Dose: 100 mg Furosemide (Furosemide 10 Mg/Ml Sdv 2ml) 20 mg IVP Q24H [facility] Guaifenesin (Guaifenesin 600 Mg Tablet) 600 mg PO BID AALIYAH Last Admin: 12/15/24 04:29 Dose: 600 mg Vancomycin HCl 750 mg/ Sodium (Chloride) 250 mls @ 250 mls/hr IV Q12H [facility] Last Infusion: 12/15/24 06:56 Dose: Infused Piperacillin Sod/Tazobactam (Sod 3.375 gm/ Sodium Chloride) 50 mls @ 12.5 mls/hr IV Q8H [facility]; Protocol Last Admin: 12/15/24 08:34 Dose: 12.5 mls/hr Sodium Chloride (Sodium Chloride 0.9%) 1,000 mls @ 100 mls/hr IV .Q10H [facility] Isosorbide Mononitrate (Isosorbide Mononitrate Er 30 Mg Tablet) 30 mg PO DAILY [facility] Last Admin: 12/15/24 04:29 Dose: 30 mg Lactulose (Lactulose Oral Liq 20 Gm/30 Ml Udc) 20 gm PO Q12H [facility] Last Admin: 12/14/24 23:39 Dose: 20 gm Lanolin (Lanolin Oint 7 Gm) 1 applic TOPICAL PRN PRN PRN Reason: DRYNESS Last Admin: 12/10/24 19:03 Dose: 1 applic Lisinopril (Lisinopril 20 Mg Tablet) 40 mg PO DAILY [facility] Last Admin: 12/15/24 04:29 Dose: 40 mg Lorazepam (Lorazepam 0.5 Mg Tablet) 0.5 mg PO BID PRN PRN Reason: ANXIETY Last Admin: 12/15/24 05:50 Dose: 0.5 mg Methylprednisolone Sodium Succinate (Methylprednisolone Sod Succ 40 Mg/Ml Inj) 40 mg IVP Q6H [facility] Last Admin: 12/15/24 08:23 Dose: 40 mg Metoprolol Tartrate (Metoprolol Tartrate 25 Mg Tablet) 12.5 mg PO BID@0900,2100 [facility] Last Admin: 12/15/24 08:17 Dose: 12.5 mg Morphine Sulfate (Morphine 4 Mg/Ml Sdv 1 Ml) 2 mg IVP Q4H PRN PRN Reason: SEVERE PAIN Naloxone HCl (Naloxone 0.4 Mg/Ml Sdv) 0.1 mg IVP Q2M PRN PRN Reason: OPIATERV Ondansetron HCl (Ondansetron 2 Mg/Ml Sdv 2 Ml) 4 mg IVP Q8H PRN PRN Reason: vomiting, or N/V if npo Pantoprazole Sodium (Pantoprazole 40 Mg Sdv) 40 mg IVP Q24H [facility] Last Admin: 12/14/24 17:36 Dose: 40 mg Polyethylene Glycol (Polyethylene Glycol 3350 Pkt 17 Gm) 17 gm PO DAILY [facility] Last Admin: 12/15/24 04:29 Dose: 17 gm Potassium Phosphate (Phosphorus 250 Mg Tablet) 250 mg PO BID AALIYAH Stop: 12/16/24 00:01 Last Admin: 12/15/24 04:28 Dose: 250 mg Tramadol HCl (Tramadol 50 Mg Tablet) 100 mg PO TID PRN PRN Reason: PAIN Last Admin: 12/14/24 20:56 Dose: 100 mg Vitals/I&O/Wt Last Vital Signs Temp 96.9 F L 12/15/24 09:00 Pulse 76 12/15/24 09:00 Resp 19 H 12/15/24 09:00 BP 150/57 12/15/24 09:00 Pulse Ox 92 12/15/24 07:39 O2 Del Method BiPAP 12/15/24 07:39 O2 Flow Rate 4 12/15/24 03:48 FiO2 30 12/15/24 07:39 12/14/24 12/15/24 12/15/24 22:59 06:59 14:59 Intake Total 420 / 840 1316.667 / 2156.667 210 / 210 Output Total 1250 / 1250 700 / 1950 Balance -830 / -410 616.667 / 206.667 210 / 210 Weight last 48 hrs Weight 57.243 kg Weight 54.975 kg Physical Exam 2 Narrative: Patient is in bed using nasal cannula oxygen. She is currently comfortable. Vital signs noted. HEENT normocephalic atraumatic Neck is supple no JVP. Lungs have dull bases per customer success associate irregular irregular. Abdomen is distended and tender high-pitched limited bowel sounds. Extremities no edema neuro awake alert oriented x 3 Urinary Catheter Management: Chi Latex: Cath Placed During This Visit: yes Reason for Continuing Indwelling Catheter: Accurate Measurement of Urinary Output in Critically Ill Patients Urinary Catheter Date of Insertion: 12/14/24 Urinary Catheter Time of Insertion: 15:48 Data 12/15/24 03:54 12/15/24 08:27 A&P Assessment and plan 1. Hyponatremia: 79-year-old lady with hypertension pneumonia and acute on chronic hyponatremia. Per chart the patient has some chronic hyponatremia which is felt to be SSRI induced. The patient had a sodium of 112 on presentation which was felt to be due to infection and poor intake with a low urine sodium. Patient's serum sodium improved with normal saline. Since stopping it her serum sodium has been decreasing again I will restart her normal saline I will give her 1 dose of furosemide to help her expel sodium in her urine. Continue to fluid restrict. The patient is having difficulty taking the oral urea we will stop it at this time. 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 Please note patient is on steroids Can repeat chest x-ray Drontal for December 13 patient did not have signs of CHF instead had emphysema with hyperinflation and airspace consolidation at the lung bases concerning for multilobar pneumonia. 2. Pneumonia treated with antibiotics. 3. Hypokalemia replace potassium and magnesium as needed 4. Atrial fibrillation as per medicine and cardiology. 5.. Hypertension -improving/ Please avoid hydrochlorothiazide in this lady with hyponatremia. Please avoid beta-blockers due to COPD. The patient was seen and examined using telehealth. The patient consented to telehealth. Exam with audiovisual equipment and the aid of a nurse. Plan: See above. PDMP PDMP Reviewed: Not Reviewed Attestations 2 Medical Necessity Statement*: hypoantremia, pna, sob Time Spent in Patient Care: 16 - 35 minutes (>than 50% of time sp ent in counselling and/or direct pt care on unit) . Coding Level of Care Code Acute Code for [facility] Fwd Diagnoses Hyponatremia E87.1
[2024-12-15] MEDS: FUROsemide 10 mg/mL SDV 2mL 20 MG IVP (10:39)
[2024-12-15 11:07] LABS: Troponin 5 2HR 20.72 ng/L (0-10); Troponin 5 2HR Delta 0.72 ABS# (0-10)
[2024-12-15] MEDS: lactulose oral liq 20 gm/30 mL UDC PO (12:19)
--- NOTE | 2024-12-15 14:05 | ECG_ITS ---
Matthew Kenney Cuisine Test Date: 2024-12-15 Pat Name: Korin Ryan Department: Room: ICU10 Gender: Female [employer] Employee: : 1945 Requested By: Noé Hernandez Order Number: [id number] Reading MD: ZACARIAS HARMAN Measurements Intervals [place] Rate: 75 P: 42 ID: 113 QRS: 54 QRSD: 92 T: 261 QT: 387 QTc: 434 Interpretive Statements SINUS RHYTHM WITH SINUS ARRHYTHMIA WITH SHORT ID INTERVAL SEPTAL MYOCARDIAL INFARCTION , PROBABLY OLD [40+ ms Q WAVE IN V1/V2] Compared to ECG 12/15/2024 11:24:53 Short ID interval now present Myocardial infarct finding now present T-wave abnormality no longer present Possible ischemia no longer present Electronically Signed On 12-15-2024 16:07:23 [employer] by ZACARIAS HARMAN [email or web address]
--- NOTE | 2024-12-15 14:57 | P.PN_ITS ---
Subjective 2 Subjective: Patient was seen this morning, alert oriented x 3, following all commands, she does report she had an episode of shortness of breath during the night but she is resting more comfortably, does have a cough, no nausea, no vomiting, no chest pain, she had a bowel movement, no abdominal pain Vitals/I&O/Wt Last Vital Signs Temp 96.9 F L 12/15/24 09:00 Pulse 68 12/15/24 14:00 Resp 24 H 12/15/24 12:00 BP 146/60 12/15/24 12:00 Pulse Ox 88 L 12/15/24 12:00 O2 Del Method Nasal Cannula 12/15/24 11:31 O2 Flow Rate 4 12/15/24 11:31 FiO2 30 12/15/24 07:39 12/14/24 12/15/24 12/15/24 22:59 06:59 14:59 Intake Total 420 / 840 1316.667 / 2156.667 360 / 360 Output Total 1250 / 1250 700 / 1950 Balance -830 / -410 616.667 / 206.667 360 / 360 Weight last 48 hrs Weight 57.243 kg Weight 54.975 kg Physical Exam 2 Const: COMMON NORMALS: no acute distress ORIENTATION/CONSCIOUSNESS: Yes awake, Yes oriented to person and Yes oriented to place; not oriented to time Resp: COMMON NORMALS: normal respiratory effort, No retractions and No use of accessory muscles AUSCULTATION: wheezes Cardio: COMMON NORMALS: regular rate, regular rhythm, S1 normal heart sound present and S2 normal heart sound present RATE: regular rate RHYTHM: r egular rhythm HEART SOUNDS: S1 normal heart sound present and S2 normal heart sound present GI: COMMON NORMALS: Normal to inspection, nondistended, normoactive bowel sounds present and non-tender : COMMON NORMALS: Yes no CVA tenderness BLADDER/KIDNEY EXAM: Yes no CVA tenderness Back/Pelvis: COMMON NORMALS: no CVA tenderness Extremity: COMMON NORMALS: no pedal edema Neuro: SENSORIUM/ORIENTATION: Yes oriented to person, Yes oriented to place and No oriented to time Psych: COMMON NORMALS: mental status grossly normal Urinary Catheter Management: Chi Latex: Cath Placed During This Visit: yes Reason for Continuing Indwelling Catheter: Accurate Measurement of Urinary Output in Critically Ill Patients Urinary Catheter Date of Insertion: 12/14/24 Urinary Catheter Time of Insertion: 15:48 Data 12/15/24 03:54 12/15/24 08:27 A&P Assessment and plan 1. Hypertension: 2. Bilateral pneumonia: 3. Acute respiratory failure with hypoxia: Plan: Acute hypoxic respiratory failure Bilateral pneumonia COPD exacerbation CT/CT angio chest PE protcl [id number] IMPRESSION: 1. No evidence for pulmonary embolism. 2. Bilateral lower lobe consolidation, most consistent with pneumonia. 3. Marked carotid bulb calcification is partially imaged bilaterally. 4. Mild T11 compression fracture of indeterminate age. 5. Severe centrilobular bullous disease, primarily in the upper lobes. - With episode of shortness of breath during the night requiring Lasix, steroids, DuoNeb Plan -Secondary to bilateral lower lobe pneumonia -Broaden antibiotic coverage was broadened to vancomycin, Zosyn -Sputum cultures growing Judy, Diflucan - Antibiotics de-escalated to Solu-Medrol 40 mg IV every 8 hours -Will order cardiac echocardiogram -CRP, Pro-Juan Carlos, repeat blood cultures -Sputum culture -Blood culture -DuoNeb -Budesonide -Full code -Lovenox for DVT prophylaxis Atrial fibrillation with rapid ventricular response - Cardizem, metoprolol, Cardizem - Therapeutic Lovenox Transaminitis, CT scan abdomen pelvis, no acute findings Ileus seen on CT scan CT/CT abdomen pelvis wo con [id number] IMPRESSION: 1. Tiny bilateral pleural effusions with subsegmental ectasis in the lung bases. 2. Cholelithiasis. 3. Air distended loops of predominantly small bowel in the pelvis and anterior abdomen may be due to adynamic ileus. Early obstruction not excluded. Recommend interval follow-up. 4. Constipation in the cecum and RIGHT colon. LEFT colon is decompressed. 5. Sigmoid diverticulosis. 6. Dense vascular calcification. 7. Atrophic RIGHT kidney. 8. Diffuse body wall anasarca - Passing gas from below - She had a bowel movement - MiraLAX, lactulose Sepsis secondary to bilateral pneumonia, acute hypoxic respiratory failure resolved Acute encephalopathy, metabolic, resolving -Secondary sepsis, hypoxia, pneumonia, hyponatremia -Monitor mentation closely Acute on chronic hyponatremia -Baseline sodium is 128-130 - Serum down to 123, - Currently on fluids, - Monitor serum sodium -Nephrology consulted, IV hydration -Seizure precautions, neurochecks Full code Lovenox for DVT prophylaxis Plan for today broaden antibiotic coverage, broaden steroids, cardiac echo, repeat blood cultures, inflammatory markers, consult pulmonary monitor serum sodium PDMP PDMP Reviewed: Not Reviewed Attestations 2 Medical Necessity Statement*: Patient requires hospitalization for acute respiratory failure, respiratory failure Diagnoses Hypertension I10 Bilateral pneumonia J18.9 Acute respiratory failure with hypoxia J96.01
--- NOTE | 2024-12-15 14:59 | PM.CONSULT ---
Providers/Reason For Consult Consulting Physician/Specialty*: Dr Medhat Bran/Pulmonary and Critical Care medicine Reason for Consult*: Acute respiratory failure Attending Physician: Noé Hernandez MD Primary Care Provider: Matt Elias MD History of Present Illness History of Present Illness Korin Ryan is a 79 year old female with past medical history of hyponatremia baseline sodium of 128, COPD, hypertension, left [id number] amputee, rheumatoid arthritis initially presents with increased shortness of breath on 12/09. Do not report increased cough or fever or chills. She was admitted to the hospitalist service for bilateral pneumonia and acute hypoxic respiratory failure and COPD exacerbation. She was started on vancomycin and cefepime as well as Solu-Medrol with DuoNebs and budesonide. Her sodium was also found to be 113. She received initial bolus of fluid for sepsis. Nephrology consulted. Hyponatremia. Secondary to be due to SSRI. Sodium continuing to be low during this admission. Intermittently was also given Lasix. Is on free water restriction. She has also been hypochloremic suggestive of volume depletion. K and Phos and mag have also been low. Course complicated by A-fib with RVR for which diltiazem drip was started on 12/12/2024 She developed sudden shortness of breath on 12/14, BiPAP started. She was getting volume overload during due to being on NS at 100 mL/h. Medications/Allergies Home Medications ?Medication ?Instructions ?Recorded ?Confirmed ?Last Taken ?Type aspirin 81 mg tablet,delayed 81 mg PO DAILY 12/15/20 12/09/24 12/09/24 History release baclofen 10 mg tablet 10 mg PO DAILY 12/15/20 12/09/24 12/09/24 History montelukast 10 mg tablet 10 mg PO DAILY 12/15/20 12/09/24 12/09/24 History naloxone 0.4 mg/mL injection 0.4 mg IM Q2M PRN overdose 12/15/20 12/09/24 Unknown History solution acetaminophen 500 mg tablet 500 mg PO Q6H PRN Pain 12/16/20 12/09/24 Unknown History (Tylenol Extra Strength) isosorbide mononitrate 30 mg 30 mg PO DAILY 12/16/20 12/09/24 12/09/24 History tablet,extended release 24 hr lorazepam 0.5 mg tablet 0.5 mg PO BID PRN Anxiety 12/16/20 12/09/24 Unknown History pramipexole 0.125 mg tablet 0.125 mg PO DAILY 12/16/20 12/09/24 12/09/24 History tramadol 50 mg tablet 100 mg PO TID PRN Pain 12/16/20 12/09/24 12/09/24 History lisinopril 40 mg tablet 40 mg PO DAILY #90 tabs 05/03/22 12/09/24 12/09/24 Rx cholecalciferol (vitamin D3) 50 50 mcg PO BID 12/09/24 12/09/24 12/09/24 History mcg (2,000 unit) tablet (Vitamin D3) fluticasone fur. 100 mcg-umeclid 1 inh inhalation QAM 12/09/24 12/09/24 12/09/24 History 62.5 mcg-vilant 25 mcg inhalat.powder (Trelegy Ellipta) pantoprazole 40 mg tablet,delayed 40 mg PO DAILY 12/09/24 12/09/24 12/09/24 History release rosuvastatin 40 mg tablet 40 mg PO DAILY 12/09/24 12/09/24 12/08/24 History apixaban 5 mg tablet (Eliquis) 5 mg PO BID 30 days #60 tabs 12/13/24 Unknown Rx diltiazem HCl 240 mg 240 mg PO DAILY 30 days #30 tabs 12/13/24 Unknown Rx tablet,extended release 24 hr (Cardizem LA) fluconazole 100 mg tablet 100 mg PO DAILY 7 days #7 tabs 12/13/24 Unknown Rx levofloxacin 750 mg tablet 750 mg PO DAILY 5 days #5 tabs 12/13/24 Unknown Rx metoprolol tartrate 25 mg tablet 12.5 mg (1/2 x 25 mg) PO 12/13/24 Unknown Rx BID@0900,2100 30 days #30 tabs prednisone 20 mg tablet 40 mg (2 x 20 mg) PO DAILY 5 days 12/13/24 Unknown Rx #10 tabs Allergies Allergy/AdvReac Type Severity Reaction Status Date / Time No Known Allergies Allergy Verified 12/09/24 14:13 Current Medications Generic Name Dose Route Start Last Admin Trade Name Freq PRN Reason Stop Dose Admin Albuterol/Ipratropium 3 ml 12/09/24 20:00 12/15/24 11:30 Ipratropium-Albuterol 3 Ml Neb INHALATION 3 ml Q4H.RESPIRATORY AALIYAH Administration Aspirin 81 mg 12/10/24 05:00 12/15/24 04:29 Aspirin 81 Mg Ec Tablet PO 81 mg DAILY AALIYAH Administration Atorvastatin Calcium 80 mg 12/10/24 05:00 12/15/24 04:29 Atorvastatin 40 Mg Tablet PO 80 mg DAILY AALIYAH Administration Bisacodyl 10 mg 12/11/24 10:25 12/15/24 04:29 Bisacodyl 5 Mg Tablet PO 10 mg DAILY AALIYAH Administration Budesonide 0.5 mg 12/09/24 20:00 12/15/24 07:39 Budesonide 0.5 Mg/2 Ml Neb INHALATION 0.5 mg BID.RESPIRATORY AALIYAH Administration Diltiazem HCl 60 mg 12/12/24 12:30 12/15/24 12:19 Diltiazem 60 Mg Tablet PO 60 mg Q6H AALIYAH Administration Enoxaparin Sodium 50 mg 12/12/24 08:30 12/15/24 08:17 Enoxaparin 60 Mg/0.6 Ml Syringe SUBCUT 50 mg Q12H AALIYAH Administration Fluconazole 100 mg 12/15/24 08:00 12/15/24 08:17 Fluconazole 100 Mg Tablet PO 100 mg Q24H AALIYAH Administration Furosemide 20 mg 12/15/24 09:45 12/15/24 10:39 Furosemide 10 Mg/Ml Sdv 2ml IVP 20 mg Q24H AALIYAH Administration Guaifenesin 600 mg 12/12/24 10:30 12/15/24 04:29 Guaifenesin 600 Mg Tablet PO 600 mg BID AALIYAH Administration Vancomycin HCl 750 mg/ Sodium 250 mls @ 250 mls/hr 12/09/24 18:00 12/15/24 06:56 Chloride IV Infused Q12H AALIYAH Infusion Piperacillin Sod/Tazobactam 50 mls @ 12.5 mls/hr 12/15/24 08:30 12/15/24 13:04 Sod 3.375 gm/ Sodium Chloride IV Infused Q8H AALIYAH Infusion Protocol Sodium Chloride 1,000 mls @ 100 mls/hr 12/15/24 09:45 12/15/24 10:40 Sodium Chloride 0.9% IV 100 mls/hr .Q10H AALIYAH Administration Isosorbide Mononitrate 30 mg 12/12/24 08:00 12/15/24 04:29 Isosorbide Mononitrate Er 30 Mg Tablet PO 30 mg DAILY AALIYAH Administration Lactulose 20 gm 12/12/24 12:30 12/15/24 12:19 Lactulose Oral Liq 20 Gm/30 Ml Udc PO 20 gm Q12H AALIYAH Administration Lanolin 1 applic 12/10/24 18:51 12/10/24 19:03 Lanolin Oint 7 Gm TOPICAL 1 applic PRN PRN Administration DRYNESS Lisinopril 40 mg 12/11/24 18:25 12/15/24 04:29 Lisinopril 20 Mg Tablet PO 40 mg DAILY AALIYAH Administration Lorazepam 0.5 mg 12/09/24 17:37 12/15/24 05:50 Lorazepam 0.5 Mg Tablet PO 0.5 mg BID PRN Administration ANXIETY Methylprednisolone Sodium Succinate 40 mg 12/15/24 08:30 12/15/24 14:32 Methylprednisolone Sod Succ 40 Mg/Ml Inj IVP 40 mg Q6H AALIYAH Administration Metoprolol Tartrate 12.5 mg 12/13/24 09:00 12/15/24 08:17 Metoprolol Tartrate 25 Mg Tablet PO 12.5 mg BID@0900,2100 AALIYAH Administration Pantoprazole Sodium 40 mg 12/09/24 18:00 12/14/24 17:36 Pantoprazole 40 Mg Sdv IVP 40 mg Q24H AALIYAH Administration Polyethylene Glycol 17 gm 12/11/24 10:20 12/15/24 04:29 Polyethylene Glycol 3350 Pkt 17 Gm PO 17 gm DAILY AALIYAH Administration Potassium Phosphate 250 mg 12/13/24 17:00 12/15/24 04:28 Phosphorus 250 Mg Tablet PO 12/16/24 00:01 250 mg BID AALIYAH Administration Tramadol HCl 100 mg 12/10/24 15:07 12/14/24 20:56 Tramadol 50 Mg Tablet PO 100 mg TID PRN Administration PAIN PFSH Acute PFSH: Medical History (Updated 12/09/24 @ 17:19 by Noé Hernandez MD) Anxiety GERD (gastroesophageal reflux disease) Left above-knee amputee Immunization counseling High risk medication use Seropositive rheumatoid arthritis of multiple sites Joint pain Hypertension History of hypercholesterolemia COPD (chronic obstructive pulmonary disease) Surgical History History of total knee arthroplasty left Family History Other CAD (coronary artery disease) Diabetes Hyperlipidemia Hypertension Lung disease Stroke Social History Smoking and tobacco/nicotine status: former use of tobacco/nicotine Alcohol intake: current Alcohol intake frequency: holidays/special occasions only Vitals/I&O/Wt Last Vital Signs Temp 96.9 F L 12/15/24 09:00 Pulse 68 12/15/24 14:00 Resp 24 H 12/15/24 12:00 BP 146/60 12/15/24 12:00 Pulse Ox 88 L 12/15/24 12:00 O2 Del Method Nasal Cannula 12/15/24 11:31 O2 Flow Rate 4 12/15/24 11:31 FiO2 30 12/15/24 07:39 12/14/24 12/15/24 12/15/24 22:59 06:59 14:59 Intake Total 420 / 840 1316.667 / 2156.667 360 / 360 Output Total 1250 / 1250 700 / 1950 Balance -830 / -410 616.667 / 206.667 360 / 360 Weight last 48 hrs Weight 126 lb 3.2 oz Weight 121 lb 3.2 oz Physical Exam Narrative: Per RN General: Tachypneic dyspneic elderly frail appearing lady lying in bed HEENT: EOMI bilaterally Pulmonary: Mild rhonchi heard. Barrel chest noted Cardiovascular: rrr, nl s1s2, Abdomen: soft, nt, nd, no r/g, Neurologic: grossly intact Agree with above exam Urinary Catheter Management: Chi Latex: Cath Placed During This Visit: yes Reason for Continuing Indwelling Catheter: Accurate Measurement of Urinary Output in Critically Ill Patients Urinary Catheter Date of Insertion: 12/14/24 Urinary Catheter Time of Insertion: 15:48 Data 12/15/24 03:54 12/15/24 08:27 A&P Assessment and plan 1. COPD (chronic obstructive pulmonary disease): 2. Bilateral pneumonia: Plan: # Acute respiratory hypoxic failure most likely secondary to pneumonia-probable pleural acute congestive heart failure Patient has on 5 L nasal cannula currently does not use any home oxygen she says. Needing as needed BiPAP. Reviewed ABG from 12/13/2024-ABG pH shows 7.29 pH, pCO2 of 49, PaO2 141. Agree with as needed Lasix, avoid fluids. Continue to wean O2 to keep O2 sats between 88 to 92%. High risk for intubation and respiratory failure. Cautious with fluid. # Bilateral pneumonia Patient was admitted initially with shortness of breath and. I reviewed her chest x-ray as well as CT chest from 12/09/2024 showing severe emphysematous changes with bilateral lower lobe dense consolidation due to pneumonia. Chest x-ray today shows bilateral lower lobe infiltrates worsened compared to 12/09/2024 mix with some pleural effusions. Sputum culture shows greater than gram-positive cocci in pairs Currently on vancomycin and Zosyn is day 12/15/2024 # Increased secretions Patient complains of inability to clear. Will start Acapella and Mucinex for this today. If she does not improve may need IPV or vest therapy. # Acute COPD exacerbation Continue DuoNebs Solu-Medrol 40 Q6 as well as budesonide. Will also start Brovana # Acute on chronic hyponatremia Appreciate nephrology help. Agree with Lasix 20 daily. Monitor urine output and creatinine. DC NS recommended secondary to volume overload and congestive heart failure. She has severe aortic calcifications mild aortic valve stenosis and moderate AR. # Volume overload Avoid fluids. She does appear to be in acute congestive heart failure. Echocardiogram reviewed from 12/09/2024 echo noted EF of 60% with severe aortic calcifications mild aortic valve stenosis and moderate AR. # Sepsis Most likely secondary to pneumonia. White count trending down currently is 20 compared to 44K on 12/09. Influenza AB RSV and SARS-CoV-2 are all negative-12/15/2024 # A-fib Currently rate controlled will continue to monitor # Possible non-STEMI EKG reviewed shows ST depressions in some leads. # Acute metabolic encephalopathy-resolved # Hypokalemia-aggressive replacement # Hypochloremia # Blood glucose-insulin sliding scale medium. Avoid hypoglycemia. Maintain blood sugars between 140-180. Dextrose drip continue # Sedation-none. Patient is very high risk for respiratory failure and would avoid sedating medications. # Nutrition-p.o. as tolerated # DVT GI prophylaxis-SCDs and Lovenox # Goals of care-family not available at bedside # CODE STATUS- FULL # Disposition-Will need full ICU support follow-up The high probability of a clinically significant, sudden or life threatening deterioration of the patient's [Respiratory, cardiac and renal] system(s) required my full and direct attention, intervention and personal management. The critical care time is as shown. This time is in addition to time spent performing any reported procedures but includes the following: [x] Data and vital sign review and interpretation [x] Patient assessment, examination and intervention [x] Documentation [x] Medication orders and management Critical Care Time (min): 35 Telemedicine Consent Patient seen today via Telemedicine by agreement and consent of patient.? Telemedicine technology used during the visit includes audio and, as available, review of images.? The patient encounter is appropriate and reasonable under the circumstances given the patient?s particular presentation at this time.? The patient has been advised of the potential risks and limitations of this mode of treatment (including but not limited to the absence of in-person examination) and has agreed to be treated in a remote fashion in spite of them.? Any, and all, of the patient?s/patient?s family?s questions on this issue have been answered and I have made no promises or guarantees to the patient. The patient has also been advised to contact this office for worsening conditions or problems, and seek emergency medical treatment and/or call 911 if the patient deems either necessary PDMP PDMP Reviewed: Not Reviewed Coding Level of Care Code Critical Care >/= 30 minutes Diagnoses COPD (chronic obstructive pulmonary disease) J44.9 Bilateral pneumonia J18.9
[2024-12-15 15:42] LABS: Alanine Aminotransferase 54 U/L (0-33); Albumin Level 2.7 g/dL (3.5-5.2); Alkaline Phosphatase 81 U/L (35-105); Anion Gap 16.8 (5-19); Aspartate Amino Transferase 42 U/L (0-32); Blood Urea Nitrogen 30 mg/dL (8-23); Calcium 7.6 mg/dL (8.5-10.5); Carbon Dioxide 21 mmol/L (22-29); Chloride 85 mmol/L (98-107); Globulin 3.0 g/dL (1.3-4.6); Glucose 179 mg/dL (65-115); Osmolality Calculated 259 mOsm/kg (285-295); Potassium 3.8 mmol/L (3.5-5.1); Total Protein 5.7 g/dL (6.6-8.7)
[2024-12-15 15:44] LABS: Sodium 119 mmol/L (136-145)
[2024-12-15 15:45] LABS: Troponin 5 6HR 19.35 ng/L (0-10)
[2024-12-15 15:47] LABS: Troponin 5 6HR Delta -0.65 ng/L (0-12)
--- NOTE | 2024-12-15 16:01 | PC.NURSE ---
lab results called orders noted ns stopped
--- NOTE | 2024-12-15 16:46 | PC.NURSE ---
urine spec down to lab, noted sluggish irrigated barboza with large return urine noted
[2024-12-15] MEDS: pantoprazole 40 mg SDV IVP (16:56)
[2024-12-15 18:28] LABS: Alanine Aminotransferase 57 U/L (0-33); Albumin Level 2.8 g/dL (3.5-5.2); Alkaline Phosphatase 88 U/L (35-105); Anion Gap 15.7 (5-19); Aspartate Amino Transferase 42 U/L (0-32); Blood Urea Nitrogen 29 mg/dL (8-23); Calcium 7.9 mg/dL (8.5-10.5); Carbon Dioxide 22 mmol/L (22-29); Chloride 85 mmol/L (98-107); Globulin 3.1 g/dL (1.3-4.6); Glucose 166 mg/dL (65-115); Osmolality Calculated 258 mOsm/kg (285-295); Potassium 3.7 mmol/L (3.5-5.1); Total Protein 5.9 g/dL (6.6-8.7)
[2024-12-15 18:33] LABS: Sodium 119 mmol/L (136-145)
[2024-12-15] MEDS: morphine 4 mg/mL SDV 1 mL 2 MG IVP (19:13)
[2024-12-15] MEDS: FUROsemide 10 mg/mL SDV 4mL 40 MG IVP (19:13)
[2024-12-15 19:25] LABS: ABG PCO2 34.7 mmHg (35-45); ABG PH Result 7.48 (7.35-7.45); Arterial Blood Gas Hematocrit 34.8 % (37-47); Blood Gas Allen Test Pos; Blood Gas Operator Identificat BD; Blood Gas Sample Site Brachial, right; Blood Gas Sample Type Arterial; HCO3 ABG 25.7 mmol/L (22-26); PO2 ABG 50.6 mmHg (80.0-100.0); PO2 FiO2 Ratio Arterial Blood 168
[2024-12-15] MEDS: ARFORMOTEROL 15 MCG/2 ML NEB INHALATION (19:39)
[2024-12-15 20:23] LABS: Alanine Aminotransferase 60 U/L (0-33); Albumin Level 3.1 g/dL (3.5-5.2); Alkaline Phosphatase 93 U/L (35-105); Anion Gap 15.9 (5-19); Aspartate Amino Transferase 44 U/L (0-32); Blood Urea Nitrogen 28 mg/dL (8-23); Calcium 8.0 mg/dL (8.5-10.5); Carbon Dioxide 24 mmol/L (22-29); Chloride 85 mmol/L (98-107); Globulin 3.2 g/dL (1.3-4.6); Glucose 170 mg/dL (65-115); Osmolality Calculated 261 mOsm/kg (285-295); Potassium 3.9 mmol/L (3.5-5.1); Sodium 121 mmol/L (136-145); Total Protein 6.3 g/dL (6.6-8.7)
[2024-12-16] VITALS (41 sets, daily range): BP systolic 93–159; BP diastolic 46–76; PULSE 60–94; RESP 12–31; TEMP 36.1–36.7; O2SAT 77–97; BMI 21.3
[2024-12-16] MEDS: piperacillin-tazobactam 3.375 GM in sodium chloride 0.9% (plus) 50 ML IV ×2 (00:40→08:10)
[2024-12-16] MEDS: methylPREDNISolone sod succ 40 mg/mL INJ IVP ×3 (02:31→14:10)
--- NOTE | 2024-12-16 03:22 | PC.NURSE ---
Lactulose: Dr. Concepcion gave verbal orders to change lactulose order to PRN for constipation. Patient not reporting any constipation.
[2024-12-16 04:51] LABS: Alanine Aminotransferase 49 U/L (0-33); Albumin Level 2.8 g/dL (3.5-5.2); Alkaline Phosphatase 81 U/L (35-105); Anion Gap 15.1 (5-19); Aspartate Amino Transferase 34 U/L (0-32); Blood Urea Nitrogen 24 mg/dL (8-23); Calcium 7.8 mg/dL (8.5-10.5); Carbon Dioxide 25 mmol/L (22-29); Chloride 87 mmol/L (98-107); Globulin 2.8 g/dL (1.3-4.6); Glucose 177 mg/dL (65-115); Magnesium 1.7 mg/dL (1.7-2.3); Osmolality Calculated 266 mOsm/kg (285-295); Potassium 3.1 mmol/L (3.5-5.1); Sodium 124 mmol/L (136-145); Total Protein 5.6 g/dL (6.6-8.7)
--- NOTE | 2024-12-16 05:05 | PC.NURSE ---
Low K: Patient's potassium was 3.1, Dr. Concepcion gave verbal orders for 40meq K PO liquid ONCE.
[2024-12-16] MEDS: potassium chloride oral liq 20 mEq/15 mL UDC 40 MEQ PO (05:47)
[2024-12-16] MEDS: polyethylene glycol 3350 Pkt 17 gm PO (05:50)
--- NOTE | 2024-12-16 06:19 | PC.NURSE ---
Resp Distress: Patient went into respiratory distress, saturations dropped as low as 79%. Patient was given xanax and put on BiPAP, Dr. Blankenship and Shant were both contacted and agreed on a dose of 40mg lasix IVP ONCE, Dr. Bran also ordered an ABG STAT. After patient relaxed on Bipap saturations improved to low 90s.
[2024-12-16 06:34] LABS: Sodium 125 mmol/L (136-145)
--- NOTE | 2024-12-16 07:35 | P.PN_ITS ---
Subjective 2 Subjective: Still short of breath. Feels better after getting furosemide last night. No nausea vomiting. Positive crackles poor appetite. Medications: Reviewed: Yes Medication Review Details: Current Medications Acetaminophen (Acetaminophen 325 Mg Tablet) 650 mg PO Q6H PRN PRN Reason: Mild/Mod Pain Or Temp >/= 101 Albuterol/Ipratropium (Ipratropium-Albuterol 3 Ml Neb) 3 ml INHALATION Q4H.RESPIRATORY AALIYAH Last Admin: 12/16/24 03:58 Dose: 3 ml Aspirin (Aspirin 81 Mg Ec Tablet) 81 mg PO DAILY AALIYAH Last Admin: 12/16/24 05:44 Dose: 81 mg Atorvastatin Calcium (Atorvastatin 40 Mg Tablet) 80 mg PO DAILY AALIYAH Last Admin: 12/16/24 05:45 Dose: 80 mg Bisacodyl (Bisacodyl 5 Mg Tablet) 10 mg PO DAILY AALIYAH Last Admin: 12/16/24 05:44 Dose: 10 mg Budesonide (Budesonide 0.5 Mg/2 Ml Neb) 0.5 mg INHALATION BID.RESPIRATORY AALIYAH Last Admin: 12/15/24 19:36 Dose: 0.5 mg Camphor/Menthol/Phenol (Blistex Lip Oint 7 Gm Tube) 1 applic TOPICAL PRN PRN PRN Reason: DRYNESS Diltiazem HCl (Diltiazem 60 Mg Tablet) 60 mg PO Q6H AALIYAH Last Admin: 12/16/24 06:31 Dose: 60 mg Enoxaparin Sodium (Enoxaparin 60 Mg/0.6 Ml Syringe) 50 mg SUBCUT Q12H AALIYAH Last Admin: 12/15/24 20:28 Dose: 50 mg Fluconazole (Fluconazole 100 Mg Tablet) 100 mg PO Q24H AALIYAH Last Admin: 12/15/24 08:17 Dose: 100 mg Furosemide (Furosemide 10 Mg/Ml Sdv 2ml) 20 mg IVP Q24H AALIYAH Last Admin: 12/15/24 10:39 Dose: 20 mg Guaifenesin (Guaifenesin 600 Mg Tablet) 600 mg PO BID AALIYAH Last Admin: 12/16/24 05:45 Dose: 600 mg Piperacillin Sod/Tazobactam (Sod 3.375 gm/ Sodium Chloride) 50 mls @ 12.5 mls/hr IV Q8H COUNT INCLUDES THE [facility]; Protocol Last Infusion: 12/16/24 06:32 Dose: Infused Vancomycin HCl 1,000 mg/ (Sodium Chloride) 250 mls @ 250 mls/hr IV Q12H COUNT INCLUDES THE [facility] Last Infusion: 12/16/24 01:04 Dose: Infused Isosorbide Mononitrate (Isosorbide Mononitrate Er 30 Mg Tablet) 30 mg PO DAILY COUNT INCLUDES THE [facility] Last Admin: 12/16/24 05:44 Dose: 30 mg Lactulose (Lactulose Oral Liq 20 Gm/30 Ml Udc) 20 gm PO PRN PRN PRN Reason: CONSTIPATION Lanolin (Lanolin Oint 7 Gm) 1 applic TOPICAL PRN PRN PRN Reason: DRYNESS Last Admin: 12/10/24 19:03 Dose: 1 applic Lisinopril (Lisinopril 20 Mg Tablet) 40 mg PO DAILY COUNT INCLUDES THE [facility] Last Admin: 12/16/24 05:46 Dose: 40 mg Lorazepam (Lorazepam 0.5 Mg Tablet) 0.5 mg PO BID PRN PRN Reason: ANXIETY Last Admin: 12/15/24 18:59 Dose: 0.5 mg Methylprednisolone Sodium Succinate (Methylprednisolone Sod Succ 40 Mg/Ml Inj) 40 mg IVP Q6H COUNT INCLUDES THE [facility] Last Admin: 12/16/24 02:31 Dose: 40 mg Metoprolol Tartrate (Metoprolol Tartrate 25 Mg Tablet) 12.5 mg PO BID@0900,2100 COUNT INCLUDES THE [facility] Last Admin: 12/15/24 20:26 Dose: 12.5 mg Morphine Sulfate (Morphine 4 Mg/Ml Sdv 1 Ml) 2 mg IVP Q4H PRN PRN Reason: SEVERE PAIN Last Admin: 12/15/24 19:13 Dose: 2 mg Naloxone HCl (Naloxone 0.4 Mg/Ml Sdv) 0.1 mg IVP Q2M PRN PRN Reason: OPIATERV Ondansetron HCl (Ondansetron 2 Mg/Ml Sdv 2 Ml) 4 mg IVP Q8H PRN PRN Reason: vomiting, or N/V if npo Pantoprazole Sodium (Pantoprazole 40 Mg Sdv) 40 mg IVP Q24H COUNT INCLUDES THE [facility] Last Admin: 12/15/24 16:56 Dose: 40 mg Polyethylene Glycol (Polyethylene Glycol 3350 Pkt 17 Gm) 17 gm PO DAILY COUNT INCLUDES THE [facility] Last Admin: 12/16/24 05:50 Dose: 17 gm Tramadol HCl (Tramadol 50 Mg Tablet) 100 mg PO TID PRN PRN Reason: PAIN Last Admin: 12/16/24 05:54 Dose: 100 mg Vitals/I&O/Wt Last Vital Signs Temp 98.0 F 12/16/24 05:00 Pulse 88 12/16/24 06:00 Resp 31 H 12/16/24 05:00 BP 140/76 12/16/24 05:00 Pulse Ox 91 12/16/24 05:00 O2 Del Method Nasal Cannula 12/16/24 05:00 O2 Flow Rate 5 12/16/24 05:00 FiO2 40 12/16/24 03:59 12/15/24 12/16/24 12/16/24 22:59 06:59 14:59 Intake Total 350 / 960 780 / 1740 Output Total 275 / 725 2650 / 3375 Balance 75 / 235 -1870 / -1635 Weight last 48 hrs Weight 59.965 kg Weight 57.243 kg Physical Exam 2 Narrative: Patient is sitting up in bed using nasal cannula oxygen. She has mild respiratory discomfort Vital signs noted. HEENT normocephalic atraumatic Neck is supple no JVP. Lungs have dull bases and scattered crackles rhonchi Heart irregular irregular. Abdomen is distended and tender high-pitched limited bowel sounds. Extremities no edema neuro awake alert oriented x 3 Urinary Catheter Management: Chi Latex: Cath Placed During This Visit: yes Reason for Continuing Indwelling Catheter: Accurate Measurement of Urinary Output in Critically Ill Patients Urinary Catheter Date of Insertion: 12/14/24 Urinary Catheter Time of Insertion: 15:48 Data 12/15/24 03:54 12/16/24 06:12 Micro: Microbiology 12/15/24 16:20 Bacterial Antigens - Final Urine,Clean Catch A&P Assessment and plan 1. Hyponatremia: 79-year-old lady with hypertension pneumonia and acute on chronic hyponatremia. Per chart the patient has some chronic hyponatremia which is felt to be SSRI induced. The patient had a sodium of 112 on presentation which was felt to be due to infection and poor intake with a low urine sodium. Patient's serum sodium improved with normal saline. Patient's sodium then dropped the patient was given both IV fluids and furosemide. Patient overnight received furosemide and is improving. 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 Pneumonia treated with antibiotics. 3. Hypokalemia replace potassium and magnesium as needed 4. Atrial fibrillation as per medicine and cardiology. 5.. Hypertension -improving/ Please avoid hydrochlorothiazide in this lady with hyponatremia. Please avoid beta-blockers due to COPD. The patient was seen and examined using telehealth. The patient consented to telehealth. Exam with audiovisual equipment and the aid of a nurse. Plan: See above. Will diurese and give electrolytes. PDMP PDMP Reviewed: Not Reviewed Attestations 2 Medical Necessity Statement*: Pneumonia, volume overload, electrolyte abnormalities including hyponatremia hypokalemia and hypomagnesemia Time Spent in Patient Care: 16 - 35 minutes (>than 50% of time sp ent in counselling and/or direct pt care on unit) . Coding Level of Care Code Acute Code for [facility] Diagnoses Hyponatremia E87.1
[2024-12-16] MEDS: morphine 4 mg/mL SDV 1 mL 2 MG IVP (07:40)
[2024-12-16] MEDS: magnesium sulfate premix 1 GM/100 ML PIGGYBACK IV (08:07)
[2024-12-16] MEDS: FUROsemide 10 mg/mL SDV 4mL 40 MG IVP (08:08)
[2024-12-16] MEDS: ARFORMOTEROL 15 MCG/2 ML NEB INHALATION (08:33)
--- NOTE | 2024-12-16 09:23 | P.PN_ITS ---
Subjective 2 Subjective: Korin Ryan is a 79 year old female with past medical history of hyponatremia baseline sodium of 128, COPD, hypertension, left [id number] amputee, rheumatoid arthritis initially presents with increased shortness of breath on 12/09. Do not report increased cough or fever or chills. She was admitted to the hospitalist service for bilateral pneumonia and acute hypoxic respiratory failure and COPD exacerbation. She was started on vancomycin and cefepime as well as Solu-Medrol with DuoNebs and budesonide. Her sodium was also found to be 113. She received initial bolus of fluid for sepsis. Nephrology consulted. Hyponatremia. Secondary to be due to SSRI. Sodium continuing to be low during this admission. Intermittently was also given Lasix. Is on free water restriction. She has also been hypochloremic suggestive of volume depletion. K and Phos and mag have also been low. Course complicated by A-fib with RVR for which diltiazem drip was started on 12/12/2024 She developed sudden shortness of breath on 12/14, BiPAP started. She was getting volume overload during due to being on NS at 100 mL/h. 12/16/2024 Reports significant groin pain, which limits ability to sit up. Anxiety makes it difficult to tolerate bilevel positive airway pressure (BiPAP). Agrees to endotracheal intubation and ventilator support if condition worsens (full code). Breathing treatments were started, including positive expiratory pressure (PEP) and another nebulized therapy. Mucinex is being given. Vitals/I&O/Wt Last Vital Signs Temp 98.0 F 12/16/24 05:00 Pulse 87 12/16/24 08:31 Resp 19 H 12/16/24 08:15 BP 132/66 12/16/24 08:00 Pulse Ox 92 12/16/24 08:15 O2 Del Method Nasal Cannula 12/16/24 08:15 O2 Flow Rate 6 12/16/24 08:15 FiO2 40 12/16/24 03:59 12/15/24 12/16/24 12/16/24 22:59 06:59 14:59 Intake Total 350 / 960 780 / 1740 300 / 300 Output Total 275 / 725 2650 / 3375 Balance 75 / 235 -1870 / -1635 300 / 300 Weight last 48 hrs Weight 132 lb 3.2 oz Weight 126 lb 3.2 oz Physical Exam 2 Narrative: Per RN General: Dyspneic elderly frail appearing lady lying in bed HEENT: EOMI bilaterally Pulmonary: Mild rhonchi heard. Barrel chest noted Cardiovascular: rrr, nl s1s2, 2+ edema noted with third spacing all over her skin. Abdomen: soft, nt, nd, no r/g, Neurologic: grossly intact Agree with above exam Urinary Catheter Management: Chi Latex: Cath Placed During This Visit: yes Reason for Continuing Indwelling Catheter: Accurate Measurement of Urinary Output in Critically Ill Patients Urinary Catheter Date of Insertion: 12/14/24 Urinary Catheter Time of Insertion: 15:48 Data 12/15/24 03:54 12/16/24 06:12 Micro: Microbiology 12/15/24 16:20 Bacterial Antigens - Final Urine,Clean Catch A&P Assessment and plan 1. COPD (chronic obstructive pulmonary disease): 2. Bilateral pneumonia: Plan: # Acute respiratory hypoxic failure most likely secondary to acute congestive heart failure and pneumonia Patient has on 5 L nasal cannula currently does not use any home oxygen she says. - Administered furosemide (Lasix) 40 mg yesterday and another 40 mg this morning. - No intravenous maintenance fluids. - Continue piperacillin-tazobactam (Zosyn). - Plan to stop vancomycin after 2 days (started yesterday). - Pharmacy to concentrate intravenous solutions. - Check culture results.-No growth to date 12/16/2024 - Provide respiratory treatments including PEP therapy and Brovana. - Provide guaifenesin (Mucinex). - Patient is full code and agrees to ventilator if needed; aim to avoid intubation if possible. - ABG checked last night shows a pH of 7.48, pCO2 34, PaO2 50, PF ratio 168 on 30% FiO2 on BiPAP. Continue to wean O2 to keep O2 sats between 88 to 92%. High risk for intubation and respiratory failure. Cautious with fluid - Patient's status overall is very tenuous. She is not able to tolerate BiPAP very well and having secretion issues. I am concerned OF IMPENDING RESPIRATORY FAILURE NEED FOR MECHANICAL VENTILATION IN THE NEXT 24 to 48 hours. Anxiety with BiPAP use : Anxiety limits tolerance of BiPAP. - BiPAP used overnight as needed. - Consider dexmedetomidine (Precedex) to improve BiPAP tolerance. # Bilateral pneumonia Patient was admitted initially with shortness of breath and. I reviewed her chest x-ray as well as CT chest from 12/09/2024 showing severe emphysematous changes with bilateral lower lobe dense consolidation due to pneumonia. Chest x-ray today shows bilateral lower lobe infiltrates worsened compared to 12/09/2024 mix with some pleural effusions. Chest x-ray done yesterday 12/15/2024 reviewed personally and interpreted shows bilateral pleural effusions mixed with pneumonialike changes. Sputum culture shows greater than gram-positive cocci in pairs-not speciated out yet 12/16/2024 Currently on vancomycin and Zosyn is day 12/15/2024 # Increased secretions Patient complains of inability to clear. Continue Acapella and Mucinex If she does not improve may need IPV or vest therapy. # Acute COPD exacerbation Continue DuoNebs Solu-Medrol 40 Q6 Continue Brovana and budesonide # Acute on chronic hyponatremia Appreciate nephrology help. Agree with Lasix 40 daily. Monitor urine output and creatinine. Patient's sodium today is 125, good response to Lasix and fluid restriction. Appreciate nephrology help she has severe aortic calcifications mild aortic valve stenosis and moderate AR. # Volume overload Avoid fluids. She does appear to be in acute congestive heart failure. Echocardiogram reviewed from 12/09/2024 echo noted EF of 60% with severe aortic calcifications mild aortic valve stenosis and moderate AR. # Sepsis Most likely secondary to pneumonia. White count trending down currently is 20 compared to 44K on 12/09. Influenza AB RSV and SARS-CoV-2 are all negative- 12/15/2024. Continue vancomycin until tomorrow and while cultures are negative may stop it and continue Zosyn alone. # A-fib Currently rate controlled will continue to monitor. Heart rate 80-90 # Possible non-STEMI EKG reviewed shows ST depressions in some leads. # Acute metabolic encephalopathy-resolved # Hypokalemia-aggressive replacement. Today potassium is 3.2. May consider switching to IV. # Hypochloremia # Blood glucose-insulin sliding scale medium. Avoid hypoglycemia. Maintain blood sugars between 140-180. Patient taking p.o. # Sedation-none. Patient is very high risk for respiratory failure and would avoid sedating medications. # Nutrition-p.o. as tolerated # DVT GI prophylaxis-SCDs and Lovenox # Goals of care-family not available at bedside # CODE STATUS- FULL # Disposition-Will need full ICU support follow-up The high probability of a clinically significant, sudden or life threatening deterioration of the patient's [Respiratory, cardiac and renal] system(s) required my full and direct attention, intervention and personal management. The critical care time is as shown. This time is in addition to time spent performing any reported procedures but includes the following: [x] Data and vital sign review and interpretation [x] Patient assessment, examination and intervention [x] Documentation [x] Medication orders and management Critical Care Time (min): 35 Telemedicine Consent Patient seen today via Telemedicine by agreement and consent of patient.? Telemedicine technology used during the visit includes audio and, as available, review of images.? The patient encounter is appropriate and reasonable under the circumstances given the patient?s particular presentation at this time.? The patient has been advised of the potential risks and limitations of this mode of treatment (including but not limited to the absence of in-person examination) and has agreed to be treated in a remote fashion in spite of them.? Any, and all, of the patient?s/patient?s family?s questions on this issue have been answered and I have made no promises or guarantees to the patient. The patient has also been advised to contact this office for worsening conditions or problems, and seek emergency medical treatment and/or call 911 if the patient deems either necessary PDMP PDMP Reviewed: Not Reviewed Attestations 2 Medical Necessity Statement*: Impending respiratory failure Coding Level of Care Code Critical Care >/= 30 minutes Diagnoses COPD (chronic obstructive pulmonary disease) J44.9 Bilateral pneumonia J18.9
[2024-12-16 10:02] LABS: Hematocrit 27.8 % (36-47); Hemoglobin 9.50 g/dL (11.27-16.99); Mean Corpuscular HGB Conc 34.2 g/dL (30-55); Mean Corpuscular Hemoglobin 29.2 pg (27-33); Mean Corpuscular Volume 85.5 fl (85-98); Nucleated Red Blood Cells % 0 %; Platelet Count 504 10^3/cmm (157-399); Red Blood Count 3.25 10^6/uL (3.85-5.65); White Blood Count 16.32 10^3/uL (3.29-11.43)
[2024-12-16 10:34] LABS: NT Pro B Type Natriuretic Pept 2197 pg/mL (0-450)
--- NOTE | 2024-12-16 11:04 | PC.NURSE ---
up in chair this am with assist of 2 dyspnic with activity large soft bm on bsc , encouraged to cough deep breath , large amt of swelling in bilateral upper arms 3 pitting , c/o pain right groin site check good pulse noted distal good color to extremety , lasix given
[2024-12-16 12:05] LABS: Alanine Aminotransferase 46 U/L (0-33); Albumin Level 2.7 g/dL (3.5-5.2); Alkaline Phosphatase 71 U/L (35-105); Anion Gap 16.4 (5-19); Aspartate Amino Transferase 31 U/L (0-32); Blood Urea Nitrogen 21 mg/dL (8-23); Calcium 7.6 mg/dL (8.5-10.5); Carbon Dioxide 24 mmol/L (22-29); Chloride 84 mmol/L (98-107); Globulin 2.4 g/dL (1.3-4.6); Glucose 235 mg/dL (65-115); Osmolality Calculated 263 mOsm/kg (285-295); Potassium 3.4 mmol/L (3.5-5.1); Sodium 121 mmol/L (136-145); Total Protein 5.1 g/dL (6.6-8.7)
[2024-12-16] MEDS: diclofenac 1% Topical Gel 100 gm 1 APPLIC TOPICAL (12:31)
--- NOTE | 2024-12-16 13:16 | CTR_ITS ---
PROCEDURE INFORMATION: Exam: CT Chest With Contrast; Diagnostic Exam date and time: 12/16/2024 1:29 PM Age: 79 years old Clinical indication: Abdominal tenderness and bloating; Dyspnea; Additional info: Bleed TECHNIQUE: Imaging protocol: Diagnostic computed tomography of the chest with contrast. Radiation optimization: All CT scans at this facility use at least one of these dose optimization techniques: automated exposure control; mA and/or kV adjustment per patient size (includes targeted exams where dose is matched to clinical indication); or iterative reconstruction. Contrast material: OMNIPAQUE 350; Contrast volume: 100 ml; Contrast route: INTRAVENOUS (IV); COMPARISON: CT angio chest PE protcl [id number] 12/09/2024 4:03 PM RADIATION DOSE METRICS: Total DLP (mGy-cm): 663.1 FINDINGS: Lungs: Markedly improved atelectasis and possible pneumonitis in the lung bases. Unchanged bilateral bullous emphysema. Otherwise, unremarkable. Pleural spaces: Decreased tiny bilateral pleural effusions. Heart: Unremarkable. No cardiomegaly. No pericardial effusion. Coronary arteries: Unchanged moderate amount of coronary artery calcification. Lymph nodes: Unremarkable. No enlarged lymph nodes. Vasculature: Unremarkable. No aortic aneurysm. Bones/joints: Unchanged moderate scoliosis. Unchanged mild multilevel spondylosis. The mild chronic compression deformities of the T11 and L1 vertebral bodies remain unchanged. Otherwise, unremarkable. Soft tissues: Unremarkable visualized chest wall. Otherwise, unremarkable soft tissues. COMMENTS: The presence of pulmonary emphysema on CT is an independent risk factor for lung cancer. In the absence of a history or active diagnosis of lung cancer, it is recommended that this patient with emphysema be evaluated for enrollment in a low dose CT lung cancer screening program. PROCEDURE INFORMATION: Exam: CT Abdomen And Pelvis With Contrast Exam date and time: 12/16/2024 1:29 PM Age: 79 years old Clinical indication: Abdominal tenderness and bloating; Dyspnea; Additional info: Bleed TECHNIQUE: Imaging protocol: Computed tomography of the abdomen and pelvis with contrast. Radiation optimization: All CT scans at this facility use at least one of these dose optimization techniques: automated exposure control; mA and/or kV adjustment per patient size (includes targeted exams where dose is matched to clinical indication); or iterative reconstruction. Contrast material: OMNIPAQUE 350; Contrast volume: 100 ml; Contrast route: INTRAVENOUS (IV); COMPARISON: CT abdomen pelvis con [id number] 12/11/2024 9:19 AM RADIATION DOSE METRICS: Total DLP (mGy-cm): 663.1 FINDINGS: Lungs: See above report. Liver: Normal. No mass. Gallbladder and biliary ducts: A few unchanged small gallstones in the gallbladder. Otherwise, unremarkable. Pancreas: Normal. No ductal dilation. Spleen: Unchanged small spleen. Otherwise, unremarkable. Adrenal glands: Normal. No mass. Kidneys and ureters: Unchanged atrophic right kidney. Unchanged tiny left renal cyst needs no follow-up. Otherwise, unremarkable. Stomach and bowel: There is a small amount of high density material within the low dependent stomach which may be ingested material, but could be a small GI hemorrhage. Much of the colon is quite distended with gas and stool. This could be colonic ileus. This is unchanged. Otherwise, grossly unremarkable stomach and bowel. Appendix: The appendix is not clearly identified. Intraperitoneal space: No free air. Retroperitoneal space: New 10 cm by 11 cm x 10 cm retroperitoneal hematoma in the right pelvis extending up into the abdomen. This abuts the psoas muscle. There is a small amount of serpiginous and amorphous contrast enhancement along the posterior margin of this and within additional disorganized blood in the more posterior right retroperitoneal space indicating active contrast extravasation. This hematoma may be arising from the right psoas muscle or possibly an adjacent blood vessel. Vasculature: Unchanged large amount of arterial calcification. Otherwise, unremarkable. Lymph nodes: Unremarkable. No enlarged lymph nodes. Urinary bladder: Trans urethral Chi catheter in the empty urinary bladder. Reproductive: Unremarkable. Bones/joints: Unchanged scoliosis and spondylosis. Otherwise, unremarkable. Soft tissues: Unchanged diffuse body wall edema. Otherwise, unremarkable visualized body wall. Otherwise, unremarkable soft tissues. CT/CT chest abdpel w/*[id number] IMPRESSION: 1. Decreased tiny bilateral pleural effusions. 2. Markedly improved atelectasis and possible pneumonitis in the lung bases. 3. No other acute thoracic findings. 4. Additional details as above. IMPRESSION: 1. New 10 cm by 11 cm x 10 cm retroperitoneal hematoma in the right pelvis extending up into the abdomen. This abuts the psoas muscle. There is a small amount of serpiginous and amorphous contrast enhancement along the posterior margin of this and within additional disorganized blood in the more posterior right retroperitoneal space indicating active contrast extravasation. This hematoma may be arising from the right psoas muscle or possibly an adjacent blood vessel. 2. There is a small amount of high density material within the low dependent stomach which may be ingested material, but could be a small GI hemorrhage. 3. Much of the colon is quite distended with gas and stool. This could be colonic ileus. This is unchanged. 4. Additional details as above.
[2024-12-16 13:27] LABS: Hematocrit 22.5 % (36-47); Hemoglobin 7.80 g/dL (11.27-16.99); Mean Corpuscular HGB Conc 34.7 g/dL (30-55); Mean Corpuscular Hemoglobin 29.5 pg (27-33); Mean Corpuscular Volume 85.2 fl (85-98); Nucleated Red Blood Cells % 0.1 %; Platelet Count 410 10^3/cmm (157-399); Red Blood Count 2.64 10^6/uL (3.85-5.65); White Blood Count 18.68 10^3/uL (3.29-11.43)
[2024-12-16] MEDS: iohexol 350 mg/mL 500 mL Btl (per mL) IV (13:41)
[2024-12-16 13:46] LABS: Alanine Aminotransferase 43 U/L (0-33); Albumin Level 2.5 g/dL (3.5-5.2); Alkaline Phosphatase 62 U/L (35-105); Anion Gap 16.5 (5-19); Aspartate Amino Transferase 32 U/L (0-32); Blood Urea Nitrogen 25 mg/dL (8-23); Calcium 7.5 mg/dL (8.5-10.5); Carbon Dioxide 23 mmol/L (22-29); Chloride 86 mmol/L (98-107); Globulin 2.2 g/dL (1.3-4.6); Glucose 283 mg/dL (65-115); Osmolality Calculated 269 mOsm/kg (285-295); Potassium 3.5 mmol/L (3.5-5.1); Sodium 122 mmol/L (136-145); Total Protein 4.7 g/dL (6.6-8.7)
--- NOTE | 2024-12-16 13:52 | PC.NURSE ---
noted very pale and weak , speech weak, noted decrease in blood pressure has had multiple loose bms, liquid, started levophed to stablelize blood pressure, doctor called to ct at this time stat and labdrawn , family called back , at this time
[2024-12-16 13:53] LABS: ABG PCO2 37.7 mmHg (35-45); ABG PH Result 7.45 (7.35-7.45); Arterial Blood Gas Hematocrit 19.0 % (37-47); Blood Gas Allen Test Pos; Blood Gas LPM 6.0 %; Blood Gas Operator Identificat GD; Blood Gas Sample Site Radial, right; Blood Gas Sample Type Arterial; HCO3 ABG 25.9 mmol/L (22-26); PO2 ABG 57.4 mmHg (80.0-100.0); PO2 FiO2 Ratio Arterial Blood 130
[2024-12-16] MEDS: albumin 25 G/100 ML BAG 60 G IV (14:10)
[2024-12-16] MEDS: norepinephrine 4 MG/250 ML BAG 15 MG IV (14:12)
[2024-12-16] MEDS: tranexamic acid 1,000 MG/100 ML PREMIX 12.5 MG IV (14:13)
[2024-12-16 14:18] LABS: INR 1.27 (0.8-1.2); Partial Thromboplastin Time 32.5 SECONDS (23.9-36.7); Prothrombin Time 16.80 SECONDS (12.1-14.9)
[2024-12-16 14:25] LABS: Lactic Sepsis W/Reflex 3.7 mmol/L (0.5-2.2)
[2024-12-16] MEDS: protamine 10 mg/mL SDV 5 mL 50 MG IVP (14:27)
[2024-12-16 14:31] LABS: Reflex Lactate Order REFLEX LACTIC ORDERD
--- NOTE | 2024-12-16 14:52 | XRR_ITS ---
PROCEDURE INFORMATION: Exam: XR Chest Exam date and time: 12/16/2024 3:54 PM Age: 79 years old Clinical indication: Other vascular access device placement or adjustment; Central line, non-tunnelled; Additional info: Central line confirmation only TECHNIQUE: Imaging protocol: Radiologic exam of the chest. Views: 1 view. COMPARISON: CT chest abdpel w/*[id number] 12/16/2024 1:29 PM FINDINGS: Tubes, catheters and devices: New right IJ central line terminates in the low SVC. Lungs: Unchanged atelectasis and possible pneumonitis in the lung bases. Otherwise, grossly unremarkable, but limited Pleural spaces: No pneumothorax identified. No pleural effusion identified. Heart/Mediastinum: Unremarkable. No cardiomegaly. Bones/joints: Nothing acute. No change. Other findings: The examination is markedly limited due to over penetration. XR/XR chest 1V portable [id number] IMPRESSION: 1. New right IJ central line terminates in the low SVC. 2. No pneumothorax identified. 3. Additional details as above.
[2024-12-16] MEDS: ondansetron 2 mg/ML SDV 2 mL 4 MG IVP (15:02)
--- NOTE | 2024-12-16 15:10 | P.PN_ITS ---
Subjective 2 Subjective: - Overnight events noted - Patient had episodes of Pittore failur e, shortness of breath, secondary to fluid overload elevated BNP, chest x-ray showing bilateral pleural effusions, received IV Lasix, placed on BiPAP - This morning she was seen sitting up i n a chair, alert oriented x 3, follow commands, no evidence of respiratory distress she is more comfortable, she is on 5 L, she has had good urine output overnight 3500 mL - Discussed with patient her respiratory failure secondary to pneumonia, fluid overload, with her hyponatremia - Discussed continue IV antibiotics is o n vancomycin, Zosyn, continue to clinically monitor her serum sodium at 122 - I believe that she is fluid overloaded has anasarca, has 1+ pitting edema, she will receive Lasix this morning, will monitor hemodynamics closely - She tells me that he is hurting all ov er, she has had a bowel movement this morning, - At roughly noon patient blood pressure s started coming down according to nursing staff MAP is 60-65, she is complaining of right flank pain, lower black pain - Discussed with nursing staff concerns for retroperitoneal bleed - She did receive Lovenox 50 mg DVT prop hylaxis at 8 AM for atrial fibrillation - All her blood thinners including aspir in was stopped, but pressure medications stopped, - She was immediately examined she is al ert oriented x 3, follow commands she is complaining of right flank pain, right hip pain - Orders placed for immediate CT scan ab domen and pelvis with IV contrast, placed repeat CBC, CMP, ABG, lactic acid - Ordered 2 units of blood, 2 units FFP, transamex acid, 1 g calcium - Patient was taken to CT scan of abdome n pelvis and taken back to her room - She is on 2 Levophed - Spoke to Angie aguiar, radiologist believes that patient has a right retroperitoneal hematoma, with concerns for right psoas hematoma, with concerns for active retroperitoneal bleed - Order placed for protamine sulfate, - Patient was reexamined, discussed with patient her retroperitoneal bleed, morbidity and mortality discussed, we are giving her reversal agents, blood, FFP, she wants to remain a full code she wants everything to be done, we discussed transferring to tertiary level center for IR evaluation and consideration of embolization, she voiced understanding, all questions answered, agreed to proceed - Spoke to [facility] transfer cente r, images pushed over, radiologist has agreed for transfer, pelletizer operator will discuss case with mower operator - Patient is requiring about 4 Levophed, receiving blood, FFP, protamine sulfate, she is alert oriented x 3, follow commands, MAP is about 65, she is on 6 L, no evidence of respiratory distress - Central line right was urgently placed , discussed with patient the risk and benefits, she voiced understanding, all questions answered, shared decision making agreed to proceed - Discussed with family patient's hospit al presentation, patient's hospitalization for respiratory failure secondary to pneumonia, her A-fib with RVR, her acute on chronic hyponatremia -Discussed for her respiratory failure s he is quired IV diuresis for the last 48 hours, antibiotic therapy has been broadened, so far she remains afebrile, blood cultures so far negative, sputum cultures so far negative, leukocytosis is improving, but she is requiring up to 6 L -Discussed the risks and benefits of pos sible intubation, they voiced understanding all questions answered, I have confirmed with PEBBLES that she has a full code, and she wants everything to be done - Discussed events of this morning, conc erns for right retroperitoneal bleed, right psoas hematoma, requiring protamine sulfate, discussed urgency of blood, FFP, central line placement and urgency for transfer for the need for IR embolectomy of retroperitoneal bleed - Discussed risk of benefits of transfer , they voiced understanding, all questions answered, shared decision making, agreed to proceed - Patient was reexamined with family num bers at bedside she is status post central line placement, she has received her first unit of blood, protamine sulfate, she is down to 2 Levophed she is alert oriented x 3, following all commands, no evidence of shortness of breath, - Discussed my concerns for fluid overlo ad with blood products, protamine sulfate, FFP, will give her Lasix as her Levophed requirements are improving and there is been concerns for respiratory failure -Discussed with family her retroperitone al bleed spontaneous versus traumatic, she has not had any falls, she has been bedbound here at [facility] she has been on Lovenox for history of atrial fibrillation 50 mg twice daily, in addition to aspirin - Discussed with patient and family in t he room the risks and benefits of transfer to tertiary level center, [facility] for consideration of IR embolization for retroperitoneal bleed, discussed risk and benefits, of transfer, they voiced understanding, all questions answered, agreed to proceed, patient agreed to proceed Vitals/I&O/Wt Last Vital Signs Temp 97 F L 12/16/24 14:45 Pulse 64 12/16/24 14:45 Resp 24 H 12/16/24 14:45 BP 104/46 12/16/24 14:40 Pulse Ox 87 L 12/16/24 14:40 O2 Del Method Nasal Cannula 12/16/24 12:03 O2 Flow Rate 6 12/16/24 12:03 FiO2 40 12/16/24 03:59 12/16/24 12/16/24 12/16/24 06:59 14:59 22:59 Intake Total 780 / 1740 1100 / 1100 Output Total 2650 / 3375 650 / 650 Balance -1870 / -1635 450 / 450 Weight last 48 hrs Weight 59.965 kg Weight 57.243 kg Physical Exam 2 Const: COMMON NORMALS: no acute distress and patient oriented x3 Resp: COMMON NORMALS: normal respiratory effort, No retractions and No use of accessory muscles AUSCULTATION: wheezes Cardio: COMMON NORMALS: regular rate, regular rhythm, S1 normal heart sound present and S2 normal heart sound present RATE: regular rate RHYTHM: r egular rhythm HEART SOUNDS: S1 normal heart sound present and S2 normal heart sound present GI: COMMON NORMALS: Normal to inspection, nondistended, normoactive bowel sounds present OTHER: Right lower quadrant tenderness, right flank tenderness tenderness Extremity: COMMON NORMALS: no pedal edema Neuro: COMMON NORMALS: patient oriented x3 Psych: COMMON NORMALS: mental status grossly normal Urinary Catheter Management: Chi Latex: Cath Placed During This Visit: yes Reason for Continuing Indwelling Catheter: Accurate Measurement of Urinary Output in Critically Ill Patients Urinary Catheter Date of Insertion: 12/14/24 Urinary Catheter Time of Insertion: 15:48 Data 12/16/24 13:21 12/16/24 13:21 Micro: Microbiology 12/15/24 16:20 Bacterial Antigens - Final Urine,Clean Catch A&P Assessment and plan 1. Hypertension: 2. Bilateral pneumonia: 3. Acute respiratory failure with hypoxia: 4. Retroperitoneal bleed: Plan: Retroperitoneal bleed -hgb down to 7.8, before blood products IMPRESSION: 1. New 10 cm by 11 cm x 10 cm retroperitoneal hematoma in the right pelvis extending up into the abdomen. This abuts the psoas muscle. There is a small amount of serpiginous and amorphous contrast enhancement along the posterior margin of this and within additional disorganized blood in the more posterior right retroperitoneal space indicating active contrast extravasation. This hematoma may be arising from the right psoas muscle or possibly an adjacent blood vessel. 2. There is a small amount of high density material within the low dependent stomach which may be ingested material, but could be a small GI hemorrhage. 3. Much of the colon is quite distended with gas and stool. This could be colonic ileus. This is unchanged. 4. Additional details as above. PLAN - Status post 2 units RBC, 2 units FFP -protamine sulfate -txa - All blood thinners stopped - N.p.o., transfer to tertiary level center for consideration of IR embolization - Currently on 2 Levophed Hemorrhagic shock - Secondary to retroperitoneal bleed Acute hypoxic respiratory failure Bilateral pneumonia COPD exacerbation CT/CT angio chest PE protcl [id number] IMPRESSION: 1. No evidence for pulmonary embolism. 2. Bilateral lower lobe consolidation, most consistent with pneumonia. 3. Marked carotid bulb calcification is partially imaged bilaterally. 4. Mild T11 compression fracture of indeterminate age. 5. Severe centrilobular bullous disease, primarily in the upper lobes. - With episode of shortness of breath during the night requiring Lasix, steroids, DuoNeb CT CHEST Lungs: Markedly improved atelectasis and possible pneumonitis in the lung bases. Unchanged bilateral bullous emphysema. Otherwise, unremarkable. Pleural spaces: Decreased tiny bilateral pleural effusions. Heart: Unremarkable. No cardiomegaly. No pericardial effusion. Coronary arteries: Unchanged moderate amount of coronary artery calcification. Lymph nodes: Unremarkable. No enlarged lymph nodes. Vasculature: Unremarkable. No aortic aneurysm. Bones/joints: Unchanged moderate scoliosis. Unchanged mild multilevel spondylosis. The mild chronic compression deformities of the T11 and L1 vertebral bodies remain unchanged. Otherwise, unremarkable. Soft tissues: Unremarkable visualized chest wall. Otherwise, unremarkable soft tissues. Plan -Secondary to bilateral lower lobe pneumonia -Broaden antibiotic coverage was broadened to vancomycin, Zosyn -Sputum cultures growing Judy, Diflucan - Antibiotics de-escalated to Solu-Medrol 40 mg IV every 8 hours -CRP, Pro-Juan Carlos, repeat blood cultures -Sputum culture -Blood culture -DuoNeb -Budesonide -Full code -Lovenox for DVT prophylaxis Atrial fibrillation with rapid ventricular response - Cardizem, metoprolol, Cardizem - Therapeutic Lovenox stopped Transaminitis, CT scan abdomen pelvis, no acute findings Ileus seen on CT scan CT/CT abdomen pelvis wo con [id number] IMPRESSION: 1. Tiny bilateral pleural effusions with subsegmental ectasis in the lung bases. 2. Cholelithiasis. 3. Air distended loops of predominantly small bowel in the pelvis and anterior abdomen may be due to adynamic ileus. Early obstruction not excluded. Recommend interval follow-up. 4. Constipation in the cecum and RIGHT colon. LEFT colon is decompressed. 5. Sigmoid diverticulosis. 6. Dense vascular calcification. 7. Atrophic RIGHT kidney. 8. Diffuse body wall anasarca - Passing gas from below - She had a bowel movement - MiraLAX, lactulose Sepsis secondary to bilateral pneumonia, acute hypoxic respiratory failure resolved Acute encephalopathy, metabolic, resolving -Secondary sepsis, hypoxia, pneumonia, hyponatremia -Monitor mentation closely Acute on chronic hyponatremia -Baseline sodium is 128-130 - Serum down to 122, - Currently on lasix for fluid overload - Monitor serum sodium -Nephrology consulted, IV hydration -Seizure precautions, neurochecks Full code Lovenox for DVT prophylaxis stopped, Plan for today broaden antibiotic coverage, broaden steroids, cardiac echo, repeat blood cultures, inflammatory markers, consult pulmonary monitor serum sodium PDMP PDMP Reviewed: Not Reviewed Attestations 2 Medical Necessity Statement*: Patient requires hospitalization for retroperitoneal bleed, transfer to tertiary level center Coding Level of Care Code Critical Care >/= 30 minutes Critical care time (in minutes): 45 The high probability of a clinically significant, sudden or life threatening deterioration, as referenced in this documentation, required my full and direct attention, intervention and personal management. The critical care time shown is in addition to time spent performing any reported separately billable procedures and includes the following: [x] Data and vital sign review and interpretation [x ] Patient assessment, examination and intervention [x] Medication orders and management [x] Patient/Family updates as able [x] Care Coordination and Documentation. Diagnoses Hypertension I10 Bilateral pneumonia J18.9 Acute respiratory failure with hypoxia J96.01 Retroperitoneal bleed K68.3
--- NOTE | 2024-12-16 15:28 | PC.NURSE ---
report pending for transfer awaiting bed assignment at this time ,weaning off levophed slowly gave ffp emergent and central line placed right neck area cxr done
[2024-12-16] MEDS: calcium chloride 10% Syr 10 mL 1 GM IVP (15:29)
[2024-12-16] MEDS: FUROsemide 10 mg/mL SDV 2mL 20 MG IVP (15:36)
--- NOTE | 2024-12-16 15:36 | P.ANES_ITS ---
Anesthesia Procedures Procedure/Date: 12/16/24 Central Venous Insert: Time Out Performed: Yes Consent: from patient, risks and benefits reviewed and patient agrees to proceed Anesthesia monitors: pulse oximetry, EKG, BP cuff and oxygen Vein cannulated: right internal jugular Ultrasound used: to identify patency to vessel and to visualize needle entry to vein Post procedure: Obtain Chest X-Ray Additional Comments: - Dark red nonpulsatile blood was seen u conchita drawback of blood, once needle and to right IJ - Guidewire was advanced over needle, ul trasound confirms placement of guidewire into right IJ
--- NOTE | 2024-12-16 15:38 | PM.TDS ---
Transfer Summary Providers Date of Admission: 12/09/24 15:54 Date of Discharge/Transfer: 12/16/24 Attending Provider at Admission: Noé Hernandez MD Attending Provider at Transfer: Noé Hernandez MD Primary Care Provider: Matt Elias MD Transfer Plans: Anticipated date of transfer: 12/16/24. Diagnoses at Discharge Discharge Diagnosis 1. Primary hypertension: 2. Bilateral pneumonia: 3. Acute respiratory failure with hypoxia: 4. 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, rheumatoid arthritis presents [facility] due to increased shortness of breath, patient is alert oriented x 2, follow commands, does require frequent redirection, frequently questioning, daughter is at bedside who helps with history taking, patient lives at home by herself, for the last 4 days she has been increasingly short of breath short of breath with minimal exertion, without productive cough, no fevers, does report chills, no nausea, no vomiting, abdominal pain she does have a lot of birds in the home including exotic birds, she does not vape, she quit smoking, no falls, no injuries, no chest pain currently she is on 4 L, nasal flaring, intercostal suprasternal retractions, mild respiratory distress short of breath with a few words, discussed with family her sepsis, bilateral lower lobe pneumonia, her hyponatremia does report poor oral intake, over the last 4 days, Patient was admitted to [facility] for acute hypoxic respiratory failure secondary to bilateral pneumonia, COPD exacerbation, with acute on chronic hyponatremia -In terms of bilateral pneumonia, patient was admitted to ICU, required oxygen therapy, vancomycin, cefepime clinically monitored. Pulmonary was consulted, due to persistent shortness of breath she was placed on IV Lasix intermittently for fluid overload. Her antibiotic therapy was broadened to vancomycin, Zosyn. So far her sputum cultures show Judy species she is on p.o. Diflucan. For her CHF exacerbation, fluid overload she received Lasix, -3.5 L today. On transfer, she is on vancomycin, Zosyn, -3.5 L, she received an additional of 20 mg IV push Lasix transferring to [facility]. 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 Serum sodium is improved to 129, with fluid restrictions, nephrology consulted. However serum sodiums have trended downwards to 122, did receive fluid therapy for consideration of dehydration, was stopped 12/15/2024. Due to concern for fluid overload received Lasix, serum sodiums have improved since then, serum sodium on transfer is 122, checking serum sodiums every 6 hours. For atrial fibrillation placed on Cardizem drip, transition to p.o. Cardizem, metoprolol, was on therapeutic Lovenox. Due to complaints of right flank pain, right lower back pain with hemoglobin dropped to 7.8 she was found to have a retroperitoneal bleed. For retroperitoneal bleed she received 2 units of FFP, 1 unit of blood, protamine sulfate, placed on Levophed, central line placed. Patient will be transferred to tertiary level [facility] for IR evaluation, transferred to ICU. Transferred on Air-Evac, Levophed at 2, she has 1 unit of blood which she was transferred with, hemodynamically stable, alert oriented x 3, comply with all commands, on 6 L, MAP is greater than 65, family members at bedside. Retroperitoneal bleed -hgb down to 7.8, before blood products IMPRESSION: 1. New 10 cm by 11 cm x 10 cm retroperitoneal hematoma in the right pelvis extending up into the abdomen. This abuts the psoas muscle. There is a small amount of serpiginous and amorphous contrast enhancement along the posterior margin of this and within additional disorganized blood in the more posterior right retroperitoneal space indicating active contrast extravasation. This hematoma may be arising from the right psoas muscle or possibly an adjacent blood vessel. 2. There is a small amount of high density material within the low dependent stomach which may be ingested material, but could be a small GI hemorrhage. 3. Much of the colon is quite distended with gas and stool. This could be colonic ileus. This is unchanged. 4. Additional details as above. PLAN - Status post 1 units RBC, 2 units FFP, 1 unit of blood on hold -protamine sulfate -txa - All blood thinners stopped - N.p.o., transfer to tertiary level [place] for consideration of IR embolization - Currently on 2 Levophed Hemorrhagic shock - Secondary to retroperitoneal bleed Acute hypoxic respiratory failure Bilateral pneumonia COPD exacerbation CT/CT angio chest PE protcl [id number] IMPRESSION: 1. No evidence for pulmonary embolism. 2. Bilateral lower lobe consolidation, most consistent with pneumonia. 3. Marked carotid bulb calcification is partially imaged bilaterally. 4. Mild T11 compression fracture of indeterminate age. 5. Severe centrilobular bullous disease, primarily in the upper lobes. - With episode of shortness of breath during the night requiring Lasix, steroids, DuoNeb CT CHEST Lungs: Markedly improved atelectasis and possible pneumonitis in the lung bases. Unchanged bilateral bullous emphysema. Otherwise, unremarkable. Pleural spaces: Decreased tiny bilateral pleural effusions. Heart: Unremarkable. No cardiomegaly. No pericardial effusion. Coronary arteries: Unchanged moderate amount of coronary artery calcification. Lymph nodes: Unremarkable. No enlarged lymph nodes. Vasculature: Unremarkable. No aortic aneurysm. Bones/joints: Unchanged moderate scoliosis. Unchanged mild multilevel spondylosis. The mild chronic compression deformities of the T11 and L1 vertebral bodies remain unchanged. Otherwise, unremarkable. Soft tissues: Unremarkable visualized chest wall. Otherwise, unremarkable soft tissues. Plan -Secondary to bilateral lower lobe pneumonia -Broaden antibiotic coverage was broadened to vancomycin, Zosyn -Sputum cultures growing Judy, Diflucan - Antibiotics de-escalated to Solu-Medrol 40 mg IV every 8 hours -CRP, Pro-Juan Carlos, repeat blood cultures -Sputum culture -Blood culture -DuoNeb -Budesonide -Full code -Lovenox for DVT prophylaxis Atrial fibrillation with rapid ventricular response - Cardizem, metoprolol, Cardizem - Therapeutic Lovenox stopped Transaminitis, CT scan abdomen pelvis, no acute findings Ileus seen on CT scan CT/CT abdomen pelvis wo con [id number] IMPRESSION: 1. Tiny bilateral pleural effusions with subsegmental ectasis in the lung bases. 2. Cholelithiasis. 3. Air distended loops of predominantly small bowel in the pelvis and anterior abdomen may be due to adynamic ileus. Early obstruction not excluded. Recommend interval follow-up. 4. Constipation in the cecum and RIGHT colon. LEFT colon is decompressed. 5. Sigmoid diverticulosis. 6. Dense vascular calcification. 7. Atrophic RIGHT kidney. 8. Diffuse body wall anasarca - Passing gas from below - She had a bowel movement - MiraLAX, lactulose Sepsis secondary to bilateral pneumonia, acute hypoxic respiratory failure resolved Acute encephalopathy, metabolic, resolving -Secondary sepsis, hypoxia, pneumonia, hyponatremia -Monitor mentation closely Acute on chronic hyponatremia -Baseline sodium is 128-130 - Serum down to 122, - Currently on lasix for fluid overload - Monitor serum sodium -Nephrology consulted, IV hydration -Seizure precautions, neurochecks Full code Lovenox for DVT prophylaxis stopped, Plan for today broaden antibiotic coverage, broaden steroids, cardiac echo, repeat blood cultures, inflammatory markers, consult pulmonary monitor serum sodium Physical Exam Const: COMMON NORMALS: no acute distress and patient oriented x3 Resp: COMMON NORMALS: normal respiratory effort, No retractions, No use of accessory muscles and clear to auscultation bilaterally AUSCULTATION: clear to auscultation bilaterally Cardio: COMMON NORMALS: regular rate, regular rhythm, S1 normal heart sound present and S2 normal heart sound present RATE: regular rate RHYTHM: regular rhythm HEART SOUNDS: S1 normal heart sound present and S2 normal heart sound present GI: COMMON NORMALS: Normal to inspection, nondistended, normoactive bowel sounds present and non-tender Extremity: COMMON NORMALS: no calf tenderness and no pedal edema Neuro: COMMON NORMALS: patient oriented x3 Psych: COMMON NORMALS: mental status grossly normal Skin: NARRATIVE SKIN EXAM: Pale appearing DP PT pulses are palpable on the right, diminished, cap refill less than 3 seconds, no mottling Urinary Catheter Management: Chi Latex: Cath Placed During This Visit: yes Reason for Continuing Indwelling Catheter: Accurate Measurement of Urinary Output in Critically Ill Patients Urinary Catheter Date of Insertion: 12/14/24 Urinary Catheter Time of Insertion: 15:48 TS Data Studies Completed and Pending Pending at discharge Category Date Time Status CXRP [XR chest 1V portable [id number]] Stat Exams 12/16/24 14:52 Taken ABO/Rh Type Stat Lab 12/16/24 13:21 Results Blood Culture Stat Lab 12/09/24 14:58 Results Blood Culture Stat Lab 12/15/24 08:28 Received Complete Crossmatch Stat Lab 12/16/24 13:21 Results Comprehensive Metabolic Panel AM LABS Lab 12/17/24 04:00 Ordered Comprehensive Metabolic Panel AM LABS Lab 12/18/24 04:00 Ordered Comprehensive Metabolic Panel Q6HR Lab 12/16/24 18:00 Ordered FFP [Frozen Plasma FZ <24 1st Cont] Routine Lab 12/16/24 13:21 Results Lactic Acid level (Lactate) Stat Lab 12/16/24 16:57 Ordered Leukocyte Reduced RBC Stat Lab 12/16/24 13:21 Results Magnesium AM LABS Lab 12/17/24 04:00 Ordered Magnesium AM LABS Lab 12/18/24 04:00 Ordered Phosphorus AM LABS Lab 12/17/24 04:00 Ordered Phosphorus AM LABS Lab 12/18/24 04:00 Ordered Sputum Culture and Gram Stain Stat Lab 12/16/24 01:40 Received Type and Screen Stat Lab 12/16/24 13:21 Results Completed Studies During Hospitalization Category Date Time Status CT abdomen pelvis wo con [id number] Stat Cat Scan 12/11/24 08:[address] chest abdpel w/*[id number] Stat Cat Scan 12/16/24 13:16 Completed CTA chest [CT angio chest PE protcl [id number]] Stat Cat Scan 12/09/24 14:50 Completed XR KUB portable [id number] Routine Exams 12/12/24 07:59 Completed XR chest 1V portable [id number] Routine Exams 12/12/24 08:15 Completed XR chest 1V portable [id number] Routine Exams 12/15/24 08:04 Completed XR chest 1V portable [id number] Stat Exams 12/09/24 14:07 Completed XR chest 1V portable [id number] Stat Exams 12/13/24 22:16 Completed CV. echo complete* [id number] Routine Ultrasound 12/15/24 08:04 Completed Laboratory Last Values WBC 18.68 10^3/uL (3.29-11.43) H 12/16/24 13:21 RBC 2.64 10^6/uL (3.85-5.65) L 12/16/24 13:21 Hgb 7.80 g/dL (11.27-16.99) L 12/16/24 13:21 Hct 22.5 % (36-47) L 12/16/24 13:21 MCV 85.2 fl (85-98) 12/16/24 13:21 MCH 29.5 pg (27-33) 12/16/24 13:21 MCHC 34.7 g/dL (30-55) 12/16/24 13:21 RDW 15.0 % (12.1-15.1) 12/16/24 13:21 Plt Count 410 10^3/cmm (157-399) H 12/16/24 13:21 MPV 8.9 fL (7.4-10.4) 12/16/24 13:21 Neut % (Auto) 91.8 % 12/16/24 13:21 Lymph % (Auto) 1.7 % 12/16/24 13:21 [place] % (Auto) 4.2 % 12/16/24 13:21 Eos % (Auto) 0.0 % 12/16/24 13:21 Baso % (Auto) 0.1 % 12/16/24 13:21 Neut # (Auto) 17.15 10^3/uL (1.8-7.7) H 12/16/24 13:21 Lymph # (Auto) 0.3 10^3/uL (0.8-4.8) L 12/16/24 13:21 [place] # (Auto) 0.8 10^3/uL (0.2-0.9) 12/16/24 13:21 Eos # (Auto) 0.0 10^3/uL (0.0-0.8) 12/16/24 13:21 Baso # (Auto) 0.0 10^3/uL (0.0-0.1) 12/16/24 13:21 Nucleated RBC % (auto) 0.1 % 12/16/24 13:21 Nucleated RBCs # 0.0 /100WBC 12/16/24 13:21 PT 16.80 SECONDS (12.1-14.9) H 12/16/24 13:57 INR 1.27 (0.8-1.2) H 12/16/24 13:57 APTT 32.5 SECONDS (23.9-36.7) 12/16/24 13:57 Specimen Type Arterial 12/16/24 13:35 Sample Site Radial, right 12/16/24 13:35 ABG pH 7.45 (7.35-7.45) 12/16/24 13:35 ABG pCO2 37.7 mmHg (35-45) 12/16/24 13:35 ABG pO2 57.4 mmHg (80.0-100.0) L 12/16/24 13:35 ABG PO2/FiO2 Ratio 130 12/16/24 13:35 ABG HCO3 25.9 mmol/L (22-26) 12/16/24 13:35 ABG O2 Saturation 98.7 12/13/24 22:20 ABG Base Excess 1.7 mmol/L (-2.0-2.0) 12/16/24 13:35 [place] Test Pos 12/16/24 13:35 A-a O2 Gradient 65.6 mmHg (5-10) H 12/13/24 22:20 Hematocrit 19.0 % (37-47) L 12/16/24 13:35 Hgb O2 Saturation 97.4 % (95-100) 12/13/24 22:20 Carboxyhemoglobin 0.4 %THgb (0.4-20.1) 12/13/24 22:20 Methemoglobin 0.9 % (0.4-1.5) 12/13/24 22:20 Total Hemoglobin 13.7 g/dL (12-16) 12/13/24 22:20 Sodium 121.0 mmol/L (131-143) L 12/13/24 22:20 Potassium 5.0 mmol/L (3.5-5.0) 12/13/24 22:20 Glucose 193.0 mg/dL (70-115) H 12/13/24 22:20 Ionized Calcium 1.2 mmol/L (1.1-1.4) 12/13/24 22:20 O2 Delivery Device Nc 12/16/24 13:35 O2 Liters/Min 6.0 % 12/16/24 13:35 FiO2 44.0 % 12/16/24 13:35 Dye Blender ID Gd 12/16/24 13:35 Sodium 122 mmol/L (136-145) L 12/16/24 13:21 Potassium 3.5 mmol/L (3.5-5.1) 12/16/24 13:21 Chloride 86 mmol/L (98-107) L 12/16/24 13:21 Carbon Dioxide 23 mmol/L (22-29) 12/16/24 13:21 Anion Gap 16.5 (5-19) 12/16/24 13:21 BUN 25 mg/dL (8-23) H 12/16/24 13:21 Creatinine 0.8 mg/dL (0.5-0.9) 12/16/24 13:21 GFR Calculation Not Reportable 12/16/24 13:21 Glucose 283 mg/dL (65-115) H 12/16/24 13:21 POC Glucose 189 mg/dL (70-110) H 12/13/24 22:11 Estimat Average Glucose 123 12/09/24 14:01 Hemoglobin A1c 5.9 % (4.0-6.0) 12/09/24 14:01 Calculated Osmolality 269 mOsm/kg (285-295) L 12/16/24 13:21 Lactic Acid 3.7 mmol/L (0.5-2.2) H 12/16/24 13:57 Uric Acid 1.9 mg/dL (2.4-5.7) L 12/15/24 03:54 Calcium 7.5 mg/dL (8.5-10.5) L 12/16/24 13:21 Phosphorus 2.7 mg/dL (2.5-4.5) 12/16/24 03:09 Magnesium 1.7 mg/dL (1.7-2.3) 12/16/24 03:09 Ferritin 777 ng/mL (15-150) H 12/09/24 17:42 Total Bilirubin 0.2 mg/dL (0.15-1.2) 12/16/24 13:21 GGT 15 U/L (5-36) 12/09/24 14:17 AST 32 U/L (0-32) 12/16/24 13:21 ALT 43 U/L (0-33) H 12/16/24 13:21 Alkaline Phosphatase 62 U/L (35-105) 12/16/24 13:21 Troponin T Baseline 20 ng/L (0-10) H 12/15/24 08:27 Troponin T 120 Minute 20.72 ng/L (0-10) H 12/15/24 10:40 Delta Troponin T 0.72 ABS# (0-10) 12/15/24 10:40 Troponin T Hi Sens 6Hr 19.35 ng/L (0-10) H 12/15/24 15:05 Troponin T Hi Sens 6Hr Delta -0.65 ng/L (0-12) L 12/15/24 15:05 C-Reactive Protein 23.3 mg/L (0.0-4.9) H 12/15/24 08:27 NT-Pro-B Natriuret Pep 2197 pg/mL (0-450) H 12/16/24 09:43 Total Protein 4.7 g/dL (6.6-8.7) L 12/16/24 13:21 Albumin 2.5 g/dL (3.5-5.2) L 12/16/24 13:21 Globulin 2.2 g/dL (1.3-4.6) 12/16/24 13:21 Triglycerides 51 mg/dL (0-150) 12/09/24 17:42 Cholesterol 69 mg/dL (0-200) 12/09/24 17:42 LDL Cholesterol, Calc 28 mg/dL (50-129) L 12/09/24 17:42 HDL Cholesterol 31 mg/dL (60-100) L 12/09/24 17:42 LDL/HDL Ratio 0.90 RATIO (0.00-3.22) 12/09/24 17:42 Cholesterol/HDL Ratio 2.23 mg/dL (0.0-4.40) 12/09/24 17:42 Lipase 9 U/L (13-60) L 12/09/24 17:42 Procalcitonin 0.13 ng/mL (0-0.5) 12/15/24 08:27 TSH 0.59 uIU/mL (0.27-4.20) 12/09/24 17:42 Ur Eosinophil Smear 0 (0-0) 12/09/24 19:02 Urine Eosinophils No eosinophils seen 12/09/24 19:02 Urine Osmolality 394 mOsm/kg (50-1200) 12/12/24 13:10 Ur Random Sodium 26 mmol/L 12/14/24 15:45 Ur Random Potassium 32 mmol/L 12/14/24 15:45 Ur Random Chloride 46 mmol/L 12/14/24 15:45 Urine Creatinine 20 mg/dL (28-217) L 12/14/24 15:45 Vancomycin Trough 12.3 ug/mL (10-15) 12/15/24 17:47 Urine Opiates Screen Negative ng/mL (Negative) 12/09/24 19:02 Ur Barbiturates Screen Negative ng/mL (Negative) 12/09/24 19:02 Ur Phencyclidine Scrn Negative ng/mL (Negative) 12/09/24 19:02 Ur Amphetamines Screen Negative ng/mL (Negative) 12/09/24 19:02 U Benzodiazepines Scrn Positive ng/mL (Negative) H 12/09/24 19:02 Urine Cocaine Screen Negative ng/mL (Negative) 12/09/24 19:02 U Marijuana (THC) Screen Negative ng/mL (Negative) 12/09/24 19:02 Adenovirus (PCR) Not detected (NOT DETECT) 12/09/24 19:20 C. pneumoniae DNA (PCR) Not detected (NOT DETECT) 12/09/24 19:20 Coronavirus 229E (PCR) Not detected (NOT DETECT) 12/09/24 19:20 Hepatitis A IgM Ab Non-reactive (Nonreactive) 12/09/24 14:17 Hep Bs Antigen Non-reactive (Nonreactive) 12/09/24 14:17 Hep B Core IgM Ab Non-reactive (Nonreactive) 12/09/24 14:17 Hepatitis C Antibody Non-reactive (Nonreactive) 12/09/24 14:17 HIV 1&2 Ab & HIV 1 Ag Non-reactive (Non-Reactiv) 12/09/24 14:17 HIV 1&2 Antibody Non-reactive (Non-Reactiv) 12/09/24 14:17 Human Metapneumovir PCR Not detected (NOT DETECT) 12/09/24 19:20 Influenza A (H1) PCR Not detected (NOT DETECT) 12/09/24 19:20 Influenza A (PCR) Negative (Negative) 12/15/24 08:30 Influ A (H1/09) PCR Not detected (NOT DETECT) 12/09/24 19:20 Influenza A (H3) PCR Not detected (NOT DETECT) 12/09/24 19:20 Influenza Type A (PCR) Not detected (NOT DETECT) 12/09/24 19:20 Influenza Type B (PCR) Negative (Negative) 12/15/24 08:30 M. pneumoniae (PCR) Not detected (NOT DETECT) 12/09/24 19:20 Parainfluenza 1 (PCR) Not detected (NOT DETECT) 12/09/24 19:20 Parainfluenza 2 (PCR) Not detected (NOT DETECT) 12/09/24 19:20 Parainfluenza 3 (PCR) Not detected (NOT DETECT) 12/09/24 19:20 Parainfluenza 4 (PCR) Not detected (NOT DETECT) 12/09/24 19:20 RSV (PCR) Negative (Negative) 12/15/24 08:30 RSV Type A (PCR) Not detected (NOT DETECT) 12/09/24 19:20 RSV Type B (PCR) Not detected (NOT DETECT) 12/09/24 19:20 Entero/Rhino (PCR) Not detected (NOT DETECT) 12/09/24 19:20 SARS-CoV-2 (PCR) Negative (Negative) 12/15/24 08:30 Blood Type A Negative 12/16/24 13:21 Rho(D) Type Rh negative 12/16/24 13:21 Antibody Screen Negative 12/16/24 13:21 Crossmatch See Detail 12/16/24 13:21 Radiology Impressions Chest CTA 12/09/24 14:50 IMPRESSION: 1. No evidence for pulmonary embolism. 2. Bilateral lower lobe consolidation, most consistent with pneumonia. 3. Marked carotid bulb calcification is partially imaged bilaterally. 4. Mild T11 compression fracture of indeterminate age. 5. Severe centrilobular bullous disease, primarily in the upper lobes. Abdomen/Pelvis CT 12/11/24 08:01 IMPRESSION: 1. Tiny bilateral pleural effusions with subsegmental ectasis in the lung bases. 2. Cholelithiasis. 3. Air distended loops of predominantly small bowel in the pelvis and anterior abdomen may be due to adynamic ileus. Early obstruction not excluded. Recommend interval follow-up. 4. Constipation in the cecum and RIGHT colon. LEFT colon is decompressed. 5. Sigmoid diverticulosis. 6. Dense vascular calcification. 7. Atrophic RIGHT kidney. 8. Diffuse body wall anasarca KUB X-Ray 12/12/24 07:59 Impression: Moderate generalized ileus. Chest/Abdomen/Pelvis CT 12/16/24 13:16 IMPRESSION: 1. Decreased tiny bilateral pleural effusions. 2. Markedly improved atelectasis and possible pneumonitis in the lung bases. 3. No other acute thoracic findings. 4. Additional details as above. IMPRESSION: 1. New 10 cm by 11 cm x 10 cm retroperitoneal hematoma in the right pelvis extending up into the abdomen. This abuts the psoas muscle. There is a small amount of serpiginous and amorphous contrast enhancement along the posterior margin of this and within additional disorganized blood in the more posterior right retroperitoneal space indicating active contrast extravasation. This hematoma may be arising from the right psoas muscle or possibly an adjacent blood vessel. 2. There is a small amount of high density material within the low dependent stomach which may be ingested material, but could be a small GI hemorrhage. 3. Much of the colon is quite distended with gas and stool. This could be colonic ileus. This is unchanged. 4. Additional details as above. ADDENDUM: 12/16/24 1416 ADDENDUM: THIS REPORT CONTAINS FINDINGS THAT MAY BE CRITICAL TO PATIENT CARE. The findings were verbally communicated via telephone conference with NOÉ HERNANDEZ at 1:50 PM [employer] on 12/16/2024. The findings were acknowledged and understood. Recent Clincial Data Last Vital Signs Temp 97 F L 12/16/24 15:06 Pulse 73 12/16/24 15:06 Resp 24 H 12/16/24 15:06 BP 122/63 12/16/24 15:00 Pulse Ox 87 L 12/16/24 14:40 O2 Del Method Nasal Cannula 12/16/24 12:03 O2 Flow Rate 6 12/16/24 12:03 FiO2 40 12/16/24 03:59 Vital Signs Temp Pulse Resp BP Pulse Ox O2 Del Method O2 Flow Rate 12/16/24 15:06 97 F L 73 24 H 12/16/24 15:00 73 27 H 122/63 12/16/24 14:45 97 F L 64 24 H 12/16/24 14:40 70 21 H 104/46 87 L 12/16/24 14:20 70 24 H 93/57 77 L 12/16/24 14:00 66 19 H 159/68 77 L 12/16/24 13:41 71 12 88 L 12/16/24 13:20 74 25 H 95/55 90 12/16/24 13:00 86 134/76 12/16/24 12:40 82 20 H 134/76 90 12/16/24 12:20 85 24 H 80 L 12/16/24 12:03 88 18 92 Nasal Cannula 6 12/16/24 12:00 90 28 H 87 L 12/16/24 12:00 88 18 12/16/24 11:40 83 24 H 85 L 12/16/24 11:20 86 24 H 102/56 84 L 12/16/24 11:00 94 20 H 112/54 82 L 12/16/24 10:40 80 26 H 112/54 88 L 12/16/24 10:20 84 22 H 127/62 91 12/16/24 10:00 77 19 H 127/62 91 12/16/24 09:40 85 19 H 134/65 12/16/24 09:20 87 26 H 106/56 85 L 12/16/24 09:00 80 21 H 106/56 88 L 12/16/24 08:40 84 16 124/65 95 12/16/24 08:31 87 12/16/24 08:20 86 21 H 132/66 90 12/16/24 08:15 84 19 H 92 Nasal Cannula 6 12/16/24 08:00 81 17 132/66 90 12/16/24 08:00 87 12/16/24 07:40 24 H 90 12/16/24 07:00 87 20 H 140/65 85 L 12/16/24 06:00 91 16 151/71 88 L 12/16/24 06:00 88 12/16/24 05:00 98.0 F 81 31 H 140/76 91 Nasal Cannula 5 12/16/24 04:00 90 17 140/76 94 Nasal Cannula 5 12/16/24 03:59 84 97 12/16/24 03:58 85 23 H 97 BiPAP FiO2 12/16/24 15:06 12/16/24 15:00 12/16/24 14:45 12/16/24 14:40 12/16/24 14:20 12/16/24 14:00 12/16/24 13:41 12/16/24 13:20 12/16/24 13:00 12/16/24 12:40 12/16/24 12:20 12/16/24 12:03 12/16/24 12:00 12/16/24 12:00 12/16/24 11:40 12/16/24 11:20 12/16/24 11:00 12/16/24 10:40 12/16/24 10:20 12/16/24 10:00 12/16/24 09:40 12/16/24 09:20 12/16/24 09:00 12/16/24 08:40 12/16/24 08:31 12/16/24 08:20 12/16/24 08:15 12/16/24 08:00 12/16/24 08:00 12/16/24 07:40 12/16/24 07:00 12/16/24 06:00 12/16/24 06:00 12/16/24 05:00 12/16/24 04:00 12/16/24 03:59 40 12/16/24 03:58 40 Intake & Output/Weight 12/14/24 12/15/24 12/16/24 12/17/24 06:59 06:59 06:59 06:59 Intake Total 2800 / 2800 2156.667 / 2156.667 1740 / 1740 1100 / 1100 Output Total 1900 / 1900 1950 / 1950 3375 / 3375 650 / 650 Balance 900 / 900 206.667 / 206.667 -1635 / -1635 450 / 450 Weight 54.975 kg 57.243 kg 59.965 kg Vitals Last Vital Signs Temp 97 F L 12/16/24 15:06 Pulse 73 12/16/24 15:06 Resp 24 H 12/16/24 15:06 BP 122/63 12/16/24 15:00 Pulse Ox 87 L 12/16/24 14:40 O2 Del Method Nasal Cannula 12/16/24 12:03 O2 Flow Rate 6 12/16/24 12:03 FiO2 40 12/16/24 03:59 TS Medications Medications Acetaminophen (Acetaminophen 325 Mg Tablet) 650 mg PO Q6H PRN PRN Reason: Mild/Mod Pain Or Temp >/= 101 Albuterol/Ipratropium (Ipratropium-Albuterol 3 Ml Neb) 3 ml INHALATION Q4H.RESPIRATORY AALIYAH Last Admin: 12/16/24 12:03 Dose: 3 ml Atorvastatin Calcium (Atorvastatin 40 Mg Tablet) 80 mg PO DAILY AALIYAH Last Admin: 12/16/24 05:45 Dose: 80 mg Bisacodyl (Bisacodyl 5 Mg Tablet) 10 mg PO DAILY AALIYAH Last Admin: 12/16/24 05:44 Dose: 10 mg Budesonide (Budesonide 0.5 Mg/2 Ml Neb) 0.5 mg INHALATION BID.RESPIRATORY AALIYAH Last Admin: 12/16/24 08:33 Dose: 0.5 mg Camphor/Menthol/Phenol (Blistex Lip Oint 7 Gm Tube) 1 applic TOPICAL PRN PRN PRN Reason: DRYNESS Fluconazole (Fluconazole 100 Mg Tablet) 100 mg PO Q24H [facility] Last Admin: 12/16/24 08:09 Dose: 100 mg Guaifenesin (Guaifenesin 600 Mg Tablet) 600 mg PO BID [facility] Last Admin: 12/16/24 05:45 Dose: 600 mg Piperacillin Sod/Tazobactam (Sod 3.375 gm/ Sodium Chloride) 50 mls @ 12.5 mls/hr IV Q8H [facility]; Protocol Last Infusion: 12/16/24 12:11 Dose: Infused Vancomycin HCl 1,000 mg/ (Sodium Chloride) 250 mls @ 250 mls/hr IV Q12H [facility] Last Infusion: 12/16/24 12:28 Dose: Infused Albumin Human (Albumin) 25 g in 100 mls @ 60 mls/hr IV Q8H [facility] Last Admin: 12/16/24 14:10 Dose: 60 mls/hr Norepinephrine Bitartrate (Levophed) 4 mg in 250 mls @ 0 mls/hr IV .Q0M [facility], [facility]; Protocol Last Admin: 12/16/24 14:12 Dose: 4 mcg/min, 15 mls/hr Tranexamic Acid (Tranexamic Acid) 1,000 mg in 100 mls @ 12.5 mls/hr IV ONCE ONE Stop: 12/16/24 21:53 Last Admin: 12/16/24 14:13 Dose: 12.5 mls/hr Lactulose (Lactulose Oral Liq 20 Gm/30 Ml Udc) 20 gm PO PRN PRN PRN Reason: CONSTIPATION Lanolin (Lanolin Oint 7 Gm) 1 applic TOPICAL PRN PRN PRN Reason: DRYNESS Last Admin: 12/10/24 19:03 Dose: 1 applic Lorazepam (Lorazepam 0.5 Mg Tablet) 0.5 mg PO Q6H PRN PRN Reason: ANXIETY Last Admin: 12/16/24 10:29 Dose: 0.5 mg Methylprednisolone Sodium Succinate (Methylprednisolone Sod Succ 40 Mg/Ml Inj) 40 mg IVP Q6H [facility] Last Admin: 12/16/24 14:10 Dose: 40 mg Morphine Sulfate (Morphine 4 Mg/Ml Sdv 1 Ml) 2 mg IVP Q4H PRN PRN Reason: SEVERE PAIN Last Admin: 12/16/24 07:40 Dose: 2 mg Naloxone HCl (Naloxone 0.4 Mg/Ml Sdv) 0.1 mg IVP Q2M PRN PRN Reason: OPIATERV Ondansetron HCl (Ondansetron 2 Mg/Ml Sdv 2 Ml) 4 mg IVP Q8H PRN PRN Reason: vomiting, or N/V if npo Last Admin: 12/16/24 15:02 Dose: 4 mg Pantoprazole Sodium (Pantoprazole 40 Mg Sdv) 40 mg IVP Q24H [facility] Last Admin: 12/15/24 16:56 Dose: 40 mg Polyethylene Glycol (Polyethylene Glycol 3350 Pkt 17 Gm) 17 gm PO DAILY [facility] Last Admin: 12/16/24 05:50 Dose: 17 gm Sodium Chloride (Sodium Chloride 0.9% 100 Ml Bag) 50 ml IV PRN PRN PRN Reason: Blood transfusion prime and flush Stop: 12/17/24 13:42 Sodium Chloride (Sodium Chloride 0.9% 100 Ml Bag) 50 ml IV PRN PRN PRN Reason: Blood transfusion prime and flush Stop: 12/17/24 13:54 Tramadol HCl (Tramadol 50 Mg Tablet) 100 mg PO TID PRN PRN Reason: PAIN Last Admin: 12/16/24 05:54 Dose: 100 mg Discontinued Medications Albuterol Sulfate (Albuterol 2.5 Mg/3 Ml Neb) 2.5 mg INHALATION ONCE ONE Stop: 12/09/24 14:07 Last Admin: 12/09/24 14:25 Dose: 2.5 mg Albuterol/Ipratropium (Ipratropium-Albuterol 3 Ml Neb) 7.5 ml INHALATION ONCE ONE Stop: 12/13/24 22:16 Last Admin: 12/13/24 22:27 Dose: 7.5 ml Albuterol/Ipratropium (Ipratropium-Albuterol 3 Ml Neb) Confirm Administered Dose 9 ml .ROUTE .STK-MED ONE Stop: 12/13/24 22:17 Last Admin: 12/14/24 05:56 Dose: Not Given Amlodipine Besylate (Amlodipine 10 Mg Tablet) 10 mg PO DAILY [facility] Last Admin: 12/12/24 05:31 Dose: 10 mg Aspirin (Aspirin 81 Mg Ec Tablet) 81 mg PO DAILY [facility] Last Admin: 12/16/24 05:44 Dose: 81 mg Calcium Chloride (Calcium Chloride 10% Syr 10 Ml) 1 gm IVP ONCE ONE Stop: 12/16/24 15:25 Last Admin: 12/16/24 15:29 Dose: 1 gm Cefepime HCl (Cefepime 2,000 Mg Sdv) 2,000 mg IVP Q8H [facility]; Protocol Last Admin: 12/10/24 08:43 Dose: 2,000 mg Cefepime HCl (Cefepime 2,000 Mg Sdv) 2,000 mg IVP Q12H [facility]; Protocol Last Admin: 12/14/24 20:52 Dose: 2,000 mg Ceftriaxone Sodium (Ceftriaxone 1,000 Mg Sdv) 1,000 mg IVP ONCE ONE; Protocol Stop: 12/09/24 14:44 Last Admin: 12/09/24 15:15 Dose: 1,000 mg Diclofenac Sodium (Diclofenac 1% Topical Gel 100 Gm) 1 applic TOPICAL QID [facility] Last Admin: 12/16/24 12:31 Dose: 1 applic Diltiazem HCl (Diltiazem 60 Mg Tablet) 60 mg PO Q6H [facility] Last Admin: 12/16/24 12:17 Dose: 60 mg Enoxaparin Sodium (Enoxaparin 40 Mg/0.4 Ml Syringe) 40 mg SUBCUT Q24H [facility] Last Admin: 12/11/24 17:11 Dose: 40 mg Enoxaparin Sodium (Enoxaparin 60 Mg/0.6 Ml Syringe) 50 mg SUBCUT Q12H [facility] Last Admin: 12/16/24 08:10 Dose: 50 mg Furosemide (Furosemide 10 Mg/Ml Sdv 4ml) 40 mg IVP ONCE ONE Stop: 12/12/24 12:24 Last Admin: 12/12/24 13:01 Dose: 40 mg Furosemide (Furosemide 10 Mg/Ml Sdv 4ml) 40 mg IVP ONCE ONE Stop: 12/13/24 22:16 Last Admin: 12/13/24 22:24 Dose: 40 mg Furosemide (Furosemide 10 Mg/Ml Sdv 2ml) 20 mg IVP Q24H [facility] Last Admin: 12/15/24 10:39 Dose: 20 mg Furosemide (Furosemide 10 Mg/Ml Sdv 4ml) 40 mg IVP ONCE ONE Stop: 12/15/24 19:03 Last Admin: 12/15/24 19:13 Dose: 40 mg Furosemide (Furosemide 10 Mg/Ml Sdv 4ml) 40 mg IVP Q12H AALIYAH Last Admin: 12/16/24 08:08 Dose: 40 mg Furosemide (Furosemide 10 Mg/Ml Sdv 2ml) 20 mg IVP ONCE ONE Stop: 12/16/24 15:26 Last Admin: 12/16/24 15:36 Dose: 20 mg Guaifenesin (Guaifenesin 600 Mg Tablet) 600 mg PO BID AALIYAH Last Admin: 12/15/24 04:29 Dose: 600 mg Sodium Chloride (Sodium Chloride 0.9%) 1,000 mls @ 999 mls/hr IV .Q1H1M AALIYAH Stop: 12/09/24 16:45 Last Admin: 12/09/24 15:58 Dose: 999 mls/hr Azithromycin 500 mg/ Sodium (Chloride) 250 mls @ 250 mls/hr IV ONCE ONE; Protocol Stop: 12/09/24 15:42 Last Admin: 12/09/24 15:15 Dose: 250 mls/hr Vancomycin HCl 750 mg/ Sodium (Chloride) 250 mls @ 250 mls/hr IV Q12H [facility] Last Infusion: 12/15/24 06:56 Dose: Infused DILTIAZEM HCL/D5W (Cardizem) 125 mg in 125 mls @ 0 mls/hr IV .Q0M AALIYAH; Protocol Last Titration: 12/12/24 14:26 Dose: 0 mg/hr, 0 mls/hr Fluconazole 100 mg/ N/A 50 mls @ 50 mls/hr IV Q24H AALIYAH Last Infusion: 12/14/24 20:55 Dose: Infused Potassium Chloride/Sodium Chloride (Sodium Chlor 0.9% + Kcl 40 Meq) 40 meq in 1,000 mls @ 100 mls/hr IV .Q10H AALIYAH Last Admin: 12/13/24 20:28 Dose: 100 mls/hr Magnesium Sulfate/Dextrose (Magnesium Sulfate Premix) 1 gm in 100 mls @ 200 mls/hr IV ONCE ONE Stop: 12/13/24 09:01 Last Infusion: 12/13/24 09:59 Dose: Infused Potassium Chloride (K-Ryan Premix) 100 mls @ 50 mls/hr IV ONCE AALIYAH Sodium Chloride (Sodium Chloride 0.9%) 1,000 mls @ 100 mls/hr IV .Q10H AALIYAH Last Infusion: 12/15/24 04:52 Dose: 0 mls/hr Sterile Water (Water) Confirm Administered Dose 10 mls @ as directed .ROUTE .STK-MED ONE Stop: 12/15/24 08:05 Last Infusion: 12/15/24 09:34 Dose: Infused Sodium Chloride (Sodium Chloride 0.9%) 1,000 mls @ 100 mls/hr IV .Q10H [facility] Last Infusion: 12/16/24 12:29 Dose: Infused Magnesium Sulfate/Dextrose (Magnesium Sulfate Premix) 1 gm in 100 mls @ 200 mls/hr IV ONCE ONE Stop: 12/16/24 08:08 Last Infusion: 12/16/24 12:28 Dose: Infused Norepinephrine Bitartrate (Levophed) Confirm Administered Dose 4 mg in 250 mls @ as directed .ROUTE .K-MED ONE Stop: 12/16/24 13:20 Iohexol (Iohexol 350 Mg/Ml 500 Ml Btl (Per Ml)) 0 ml IV ONCE ONE Stop: 12/09/24 15:09 Last Admin: 12/09/24 15:09 Dose: 51 ml Iohexol (Iohexol 350 Mg/Ml 500 Ml Btl (Per Ml)) 0 ml IV ONCE ONE Stop: 12/16/24 13:41 Last Admin: 12/16/24 13:41 Dose: 100 ml Isosorbide Mononitrate (Isosorbide Mononitrate Er 30 Mg Tablet) 30 mg PO DAILY [facility] Last Admin: 12/16/24 05:44 Dose: 30 mg Lactulose (Lactulose Oral Liq 20 Gm/30 Ml Udc) 20 gm PO ONCE ONE Stop: 12/11/24 15:50 Last Admin: 12/11/24 17:11 Dose: 20 gm Lactulose (Lactulose Oral Liq 20 Gm/30 Ml Udc) 20 gm PO Q12H [facility] Last Admin: 12/16/24 00:41 Dose: Not Given Lisinopril (Lisinopril 20 Mg Tablet) 40 mg PO DAILY [facility] Last Admin: 12/16/24 05:46 Dose: 40 mg Lorazepam (Lorazepam 0.5 Mg Tablet) 0.5 mg PO BID PRN PRN Reason: ANXIETY Last Admin: 12/15/24 18:59 Dose: 0.5 mg Methylprednisolone Sodium Succinate (Methylprednisolone Sod Succ 125 Mg/2 Ml Inj) 125 mg IV ONCE ONE Stop: 12/09/24 14:07 Last Admin: 12/09/24 15:14 Dose: 125 mg Methylprednisolone Sodium Succinate (Methylprednisolone Sod Succ 40 Mg/Ml Inj) 40 mg IVP Q8H [facility] Last Admin: 12/11/24 14:29 Dose: 40 mg Methylprednisolone Sodium Succinate (Methylprednisolone Sod Succ 125 Mg/2 Ml Inj) 60 mg IVP ONCE ONE Stop: 12/13/24 22:13 Last Admin: 12/13/24 22:21 Dose: 60 mg Methylprednisolone Sodium Succinate (Methylprednisolone Sod Succ 125 Mg/2 Ml Inj) Confirm Administered Dose 125 mg .ROUTE .STK-MED ONE Stop: 12/13/24 22:20 Last Admin: 12/13/24 23:03 Dose: Not Given Metoprolol Tartrate (Metoprolol Tartrate 25 Mg Tablet) 12.5 mg PO BID@0900,2100 [facility] Last Admin: 12/16/24 08:09 Dose: 12.5 mg Pharmacy Consult (Pharmacy Consult For Fall Risk) 1 each XX ONCE ONE; Protocol Stop: 12/15/24 23:13 Potassium Chloride (Potassium Chloride Er 20 Meq Tablet) 40 meq PO ONCE ONE Stop: 12/13/24 08:04 Last Admin: 12/13/24 08:22 Dose: 40 meq Potassium Chloride (Potassium Chloride Er 20 Meq Tablet) 40 meq PO ONCE ONE Stop: 12/15/24 10:12 Last Admin: 12/15/24 10:39 Dose: 40 meq Potassium Chloride (Potassium Chloride Oral Liq 20 Meq/15 Ml Udc) 40 meq PO ONCE ONE Stop: 12/16/24 05:03 Last Admin: 12/16/24 05:47 Dose: 40 meq Potassium Chloride (Potassium Chloride Er 20 Meq Tablet) 20 meq PO ONCE ONE Stop: 12/16/24 11:46 Last Admin: 12/16/24 12:16 Dose: 20 meq Potassium Phosphate (Phosphorus 250 Mg Tablet) 250 mg PO BID AALIYAH Stop: 12/16/24 00:01 Last Admin: 12/15/24 16:56 Dose: 250 mg Prednisone (Prednisone 20 Mg Tablet) 40 mg PO DAILY [facility] Last Admin: 12/15/24 04:29 Dose: 40 mg Protamine Sulfate (Protamine 10 Mg/Ml Sdv 5 Ml) 50 mg IVP NOW ONE Stop: 12/16/24 14:31 Last Admin: 12/16/24 14:27 Dose: 50 mg Sodium Phosphate (Fleet Enema 133 Ml Enema) 133 ml DC ONCE ONE Stop: 12/13/24 10:47 Last Admin: 12/13/24 11:37 Dose: Not Given Urea (Urea 15 Gm Powder) 15 gm PO DAILY AALIYAH Last Admin: 12/15/24 08:17 Dose: 15 gm Allergies No Known Allergies Allergy (Verified 12/09/24 14:13) Home Medications aspirin 81 mg tablet,delayed release 81 mg PO DAILY 12/15/20 [History Confirmed 12/09/24] baclofen 10 mg tablet 10 mg PO DAILY 12/15/20 [History Confirmed 12/09/24] montelukast 10 mg tablet 10 mg PO DAILY 12/15/20 [History Confirmed 12/09/24] naloxone 0.4 mg/mL injection solution 0.4 mg IM Q2M PRN overdose 12/15/20 [History Confirmed 12/09/24] acetaminophen 500 mg tablet (Tylenol Extra Strength) 500 mg PO Q6H PRN Pain 12/16/20 [History Confirmed 12/09/24] isosorbide mononitrate 30 mg tablet,extended release 24 hr 30 mg PO DAILY 12/16/20 [History Confirmed 12/09/24] lorazepam 0.5 mg tablet 0.5 mg PO BID PRN Anxiety 12/16/20 [History Confirmed 12/09/24] pramipexole 0.125 mg tablet 0.125 mg PO DAILY 12/16/20 [History Confirmed 12/09/24] tramadol 50 mg tablet 100 mg PO TID PRN Pain 12/16/20 [History Confirmed 12/09/24] lisinopril 40 mg tablet 40 mg PO DAILY #90 tabs 05/03/22 [Rx Confirmed 12/09/24] cholecalciferol (vitamin D3) 50 mcg (2,000 unit) tablet (Vitamin D3) 50 mcg PO BID 12/09/24 [History Confirmed 12/09/24] fluticasone fur. 100 mcg-umeclid 62.5 mcg-vilant 25 mcg inhalat.powder (Trelegy Ellipta) 1 inh inhalation QAM 12/09/24 [History Confirmed 12/09/24] pantoprazole 40 mg tablet,delayed release 40 mg PO DAILY 12/09/24 [History Confirmed 12/09/24] rosuvastatin 40 mg tablet 40 mg PO DAILY 12/09/24 [History Confirmed 12/09/24] apixaban 5 mg tablet (Eliquis) 5 mg PO BID 30 days #60 tabs 12/13/24 [Rx] diltiazem HCl 240 mg tablet,extended release 24 hr (Cardizem LA) 240 mg PO DAILY 30 days #30 tabs 12/13/24 [Rx] fluconazole 100 mg tablet 100 mg PO DAILY 7 days #7 tabs 12/13/24 [Rx] levofloxacin 750 mg tablet 750 mg PO DAILY 5 days #5 tabs 12/13/24 [Rx] metoprolol tartrate 25 mg tablet 12.5 mg (1/2 x 25 mg) PO BID@0900,2100 30 days #30 tabs 12/13/24 [Rx] prednisone 20 mg tablet 40 mg (2 x 20 mg) PO DAILY 5 days #10 tabs 12/13/24 [Rx] Discharge Plan Discharge Patient Disposition: Home Condition: Stable Prescriptions: New prednisone 20 mg Tablet 40 mg PO DAILY 5 Days Qty: 10 0RF metoprolol tartrate 25 mg Tablet 12.5 mg PO BID@0900,2100 30 Days Qty: 30 0RF Eliquis 5 mg tablet 5 mg PO BID 30 Days Qty: 60 0RF diltiazem HCl [Cardizem LA] 240 mg tablet extended release 24 hr 240 mg PO DAILY 30 Days Qty: 30 0RF fluconazole 100 mg tablet 100 mg PO DAILY 7 Days Qty: 7 0RF levofloxacin 750 mg tablet 750 mg PO DAILY 5 Days Qty: 5 0RF Continued tramadol 50 mg tablet 100 mg PO TID PRN (Reason: Pain) isosorbide mononitrate 30 mg tablet extended release 24 hr 30 mg PO DAILY pramipexole 0.125 mg tablet 0.125 mg PO DAILY lorazepam 0.5 mg tablet 0.5 mg PO BID PRN (Reason: Anxiety) acetaminophen [Tylenol Extra Strength] 500 mg tablet 500 mg PO Q6H PRN (Reason: Pain) naloxone 0.4 mg/mL solution 0.4 mg IM Q2M PRN (Reason: overdose) Rx Instructions: NTExceed 10 mg total dose/episode aspirin 81 mg tablet,delayed release (DR/EC) 81 mg PO DAILY montelukast 10 mg tablet 10 mg PO DAILY baclofen 10 mg tablet 10 mg PO DAILY lisinopril 40 mg tablet 40 mg PO DAILY Qty: 90 0RF pantoprazole 40 mg tablet,delayed release (DR/EC) 40 mg PO DAILY rosuvastatin 40 mg tablet 40 mg PO DAILY cholecalciferol (vitamin D3) [Vitamin D3] 50 mcg (2,000 unit) Tablet 50 mcg PO BID Trelegy Ellipta 100-62.5-25 mcg blister with device 1 inh inhalation QAM Discontinued amlodipine 10 mg tablet 10 mg PO DAILY duloxetine 60 mg capsule,delayed release(DR/EC) 60 mg PO DAILY Other Ambulatory Orders: DME: Oxygen (Order) Location: None Selected Ordered By: Noé Hernandez Referrals: [facility] [place] [Outside] Referral Note: [facility] medical equipment [phone] Matt Elias MD [Primary Care Provider, [facility]] - 12/20/24 10:15 am Referral Note: will need blood draw for serum sodium lab test at time of this appointment Albino Huber MD [Physician, Cardiology] - 01/07/25 3:45 pm Discharge Diet: Cardiac Discharge Activity: Resume usual activity Patient Instructions: Metoprolol (By mouth) (Lopressor, Toprol XL), Diltiazem (By mouth) (Cardizem, Cardizem CD, Cardizem LA, Cardizem SR), Prednisone (By mouth) (Prednisone Intensol, Prednicot, Deltasone, Andrzej), Metronidazole (By mouth) (Flagyl, Flagyl 375, Flagyl ER, Likmez), Fluconazole (By mouth) (Diflucan), Levofloxacin (By mouth) (Levaquin, Levaquin Leva-linda), Apixaban (By mouth) (Eliquis), Hyponatremia (DC), COPD Stoplight, Opioid Safety, Pneumonia Stoplight, Patient Portal & Manpreet Instructions Activity Restrictions/Additional Instructions: - Please have your primary care provider recheck your serum sodium in 1 week. - Monitor for lightheadedness or dizziness. - Cardiac Diet. - Resume usual activities. Transfer Attestations Time Spent in Transfer Care: critical care time Critical Care Time (min): 45 Quality Metrics Clinical Quality Measures [ No reported AMI, CVA or VTE this stay] Coding Level of Care Code Acute Code for Chg Fwd Diagnoses Primary hypertension I10 Hypertension type: primary hypertension Bilateral pneumonia J18.9 Acute respiratory failure with hypoxia J96.01 Retroperitoneal bleed K68.3
--- NOTE | 2024-12-16 16:13 | PC.NURSE ---
report called and air vac here transfer to [facility]
--- NOTE | 2024-12-16 16:34 | PC.NURSE ---
teeth in mouth other belongings with daughter
== END 2024-12-16 16:37 | disposition short-term general hospital (02) | DRG 871 ==
LOC: ER 15:58 → ICU 16:21
PROVIDERS: Hospitalist; Internal Medicine; Internal Medicine Nephrology; Student in an Organized Health Care Education/Training Program; Admitting Provider Family Medicine; Emergency Provider Emergency Medicine; PCP Family Medicine; Visit Provider Family Medicine
DX: A41.9 Sepsis, unspecified organism (principal); G93.41 Metabolic encephalopathy; J96.01 Acute respiratory failure with hypoxia; J15.8 Pneumonia due to other specified bacteria; K68.3 Retroperitoneal hematoma; R57.8 Other shock; J44.0 Chronic obstructive pulmonary disease with (acute) lower respiratory infection; J44.1 Chronic obstructive pulmonary disease with (acute) exacerbation; E87.1 Hypo-osmolality and hyponatremia; K56.7 Ileus, unspecified; R74.01 Elevation of levels of liver transaminase levels; R65.20 Severe sepsis without septic shock; Z87.891 Personal history of nicotine dependence; Z82.49 Family history of ischemic heart disease and other diseases of the circulatory system; F41.9 Anxiety disorder, unspecified; K21.9 Gastro-esophageal reflux disease without esophagitis; Z83.6 Family history of other diseases of the respiratory system; M05.89 Other rheumatoid arthritis with rheumatoid factor of multiple sites; I48.91 Unspecified atrial fibrillation; E87.6 Hypokalemia; E87.8 Other disorders of electrolyte and fluid balance, not elsewhere classified; Z79.82 Long term (current) use of aspirin; I11.0 Hypertensive heart disease with heart failure; I50.9 Heart failure, unspecified; Z89.612 Acquired absence of left leg above knee; Z99.81 Dependence on supplemental oxygen
CPT/HCPCS: 36415; 36416; 36430; 36600; 51702; 71045; 71260; 71275; 74018; 74176; 74177; 80048; 80051; 80053; 80061; 80074; 80202; 80306; 82330; 82436; 82570; 82728; 82803; 82805; 82962; 82977; 83036; 83605; 83690; 83735; 83880; 83935; 84100; 84133; 84145; 84295; 84300; 84443; 84484; 84550; 85025; 85610; 85730; 85999; 86140; 86403; 86850; 86900; 86920; 86927; 87040; 87070; 87106; 87205; 87486; 87581; 87633; 87637; 87806; 93005; 93306; 94640; 94660; 94664; 94760; 96365; 96372; 96375; 99285; J0456; J0692; J0696; J1450; J1650; J1938; J2270; J2405; J2470; J2543; J2720; J2919; J3373; J3475; J3490; J7030; J7050; J7512; J7605; J7613; J7626; J9999; P9017; P9040; P9046; Q3014